=== PATIENT | female | born 1990 | race Caucasian/White ===

== ENCOUNTER → 2017-11-20 08:32 | Outpatient (CLI) | payer SELFPAY ==
--- NOTE | 2017-11-20 08:35 | US_ITS ---
STUDY: ULTRASOUND BREAST - LEFT REASON FOR EXAM: Female, 27 years old. Left breast lumps. History previous fibroadenoma left breast 8:00 position +4. TECHNIQUE: Axial and longitudinal images of the LEFT breast were performed with a high resolution ultrasound transducer. COMPARISON: None available. FINDINGS: LEFT Breast: There is a lesion in the left breast lower inner quadrant). The lesion measures approximately 1.6 x 1.8 x 0.9 cm in size. Clock notation: 8 o'clock position. Distance from nipple: 4 cm. Posterior Enhancement: Mild Posterior Shadowing: Internal round hyperechoic areas seen with acoustic shadowing suggesting a calcification. Margins: Smooth Echogenicity: Heterogeneous predominant hypoechoic. Wider than tall with minimal internal color Doppler signal noted. 2 additional lesions are seen in the 1:00 position 2 cm from the nipple, one of which is 1.0 x 1.1 x 0.9 cm and the other is approximately 0.9 x 1.1 x 0.7 cm. Both lesions appear round with smooth margins. However, one of the lesions is heterogeneous in echogenicity, predominantly hypoechoic with separate cystic area noted superficially with minimal internal color Doppler signal. The other rounded lesion appears fairly homogeneously hypoechoic without internal color Doppler signal. US/Breast Limited Unilateral IMPRESSION: Left breast multiple lesions with probably benign ultrasound findings such as fibroadenomas as described above. Recommend left breast targeted ultrasound repeated in 6 months for short term interval follow-up of probably benign findings. ASSESSMENT CATEGORY: BIRADS Category 3: Probably Benign - Short-Interval Follow-up Suggested. A letter regarding these results will be sent to the patient by the facility within 30 days. Electronically Signed: Geraldo Young, at 11:20 EDT Tel , Service support ,
== END ==
PROVIDERS: Family Provider Internal Medicine; PCP Internal Medicine; Visit Provider Obstetrics & Gynecology
DX: N63.20 Unspecified lump in the left breast, unspecified quadrant (principal)
CPT/HCPCS: 76642

== ENCOUNTER → 2018-03-09 07:55 | Outpatient (CLI) | payer OTHER, SELFPAY ==
[2018-03-09 08:38] LABS: Hemoglobin A1c 5.3 % (4.2-6.3)
[2018-03-09 09:02] LABS: Cholesterol 152 mg/dL (200); High Density Lipoprotein 57 mg/dL; Thyroid Stim Hormone (TSH) 2.11 uIU/mL (0.358-3.74); Triglycerides 38 mg/dL; Very Low Density Lipoprotein 8 mg/dL (5-40)
== END ==
PROVIDERS: Family Provider Internal Medicine; PCP Internal Medicine; Visit Provider Internal Medicine
DX: E03.9 Hypothyroidism, unspecified (principal); R73.9 Hyperglycemia, unspecified; Z13.220 Encounter for screening for lipoid disorders
CPT/HCPCS: 36415; 80061; 83036; 84439; 84443; 84481

== ENCOUNTER → 2019-03-27 | Outpatient (CLI) | payer OTHER, SELFPAY ==
[2019-03-27 13:06] LABS: hCG Titer Quant., Serum 2 mIU/mL (1-3)
== END | disposition home or self-care (01) ==
LOC: LAB 12:05
PROVIDERS: Family Provider Internal Medicine; PCP Internal Medicine; Referring Provider Obstetrics & Gynecology Reproductive Endocrinology; Visit Provider Obstetrics & Gynecology Reproductive Endocrinology
DX: Z32.01 Encounter for pregnancy test, result positive (principal)
CPT/HCPCS: 36415; 84702

== ENCOUNTER → 2019-08-29 16:36 | Outpatient (CLI) | payer OTHER, SELFPAY | PROVIDERS: Family Provider Internal Medicine; PCP Internal Medicine; Referring Provider Nurse Practitioner Women's Health; Visit Provider Nurse Practitioner Women's Health | DX: N92.6 Irregular menstruation, unspecified (principal) | CPT/HCPCS: 36415; 84702 ==

== ENCOUNTER → 2019-09-04 13:38 | Outpatient (CLI) | payer OTHER, SELFPAY ==
--- NOTE | 2019-09-04 13:38 | US_ITS ---
STUDY: FIRST TRIMESTER OBSTETRICAL ULTRASOUND REASON FOR EXAM: Female, 29 years old DATING LMP: July 19, 2019. TECHNIQUE: Transvaginal TECHNICAL QUALITY: Adequate. PRIOR ULTRASOUND: None. FINDINGS: There is visualization of a single gestational sac in a normal intrauterine position. The mean sac diameter (MSD) measures 3.23 cm, indicating an estimated gestational age (EGA) of 8 weeks, 3 days. The gestational sac shape is within normal limits. There is a visualized yolk sac. The yolk sac measures 4.5 mm. The placenta is non-visualized. There is visualization of a live embryo. The crown-rump length (CRL) measures 1.49 cm, indicating an estimated gestational age (EGA) of 7 weeks, 5 days. There is demonstrated cardiac activity with a heart rate of 152 bpm. The estimated gestation age (EGA) by LMP is 6 weeks, 5 days. The estimated date of delivery (PRASHANTH) by LMP is April 24, 2020. The estimated gestation age (EGA) by US is 8 weeks, 0 days. The estimated date of delivery (PRASHANTH) by US is April 15, 2020. The uterus measures 9 cm x 7.7 cm x 5.7 cm. There is no demonstrated uterine fibroid. The cervix is closed. The right ovary measures 3.4 cm x 2.7 cm x 1.9 cm. A dominant follicle is seen within it measuring 1.6 cm x 1.8 cm x 1.5 cm. There is no visualized right adnexal mass or complex lesion. The left ovary measures 3.2 cm x 2 cm x 1.6 cm.. There is no left ovarian cyst. There is no visualized left adnexal mass or complex lesion. There is no fluid in the cul de sac. US/Init OB < 14Wks US IMPRESSION: Single live intrauterine gestation with a mean gestational age of 6 weeks and 5 days. Dominant follicle seen in the right ovary measuring 1.6 cm x 1.8 cm x 1.5 cm. Electronically Signed: Aldo Markham at 13:07 EST , Service support ,
== END ==
PROVIDERS: Family Provider Internal Medicine; PCP Internal Medicine; Referring Provider Nurse Practitioner Women's Health; Visit Provider Nurse Practitioner Women's Health
DX: O09.90 Supervision of high risk pregnancy, unspecified, unspecified trimester (principal); Z3A.00 Weeks of gestation of pregnancy not specified
CPT/HCPCS: 76801

== ENCOUNTER → 2019-09-05 17:07 | Outpatient (CLI) | payer OTHER, SELFPAY ==
[2019-09-05 16:42] VITALS: BMI 24.9
[2019-09-05 17:42] LABS: Amphetamine Urine VISTA NEGATIVE (<1000 ng/mL); Barbiturate Urine VISTA NEGATIVE (< 200 ng/mL); Benzodiazepine Urine VISTA NEGATIVE (< 200 ng/mL); Cocaine Urine VISTA NEGATIVE (< 300 ng/mL); Ecstacy Urine VISTA NEGATIVE (< 500 ng/mL); Methadone Urine VISTA NEGATIVE (< 300 ng/mL); PCP Urine VISTA NEGATIVE (< 25 ng/mL); THC Urine VISTA NEGATIVE (< 50 ng/mL); Vista UDS pH Range 7
[2019-09-05 20:22] LABS: Chlamydia Trachomatis by PCR Negative (Negative); Neisserai gonorrhoeae by PCR Negative (Negative); Probe Check PASS; Sample Adequacy Control PASS; Specimen Processing Control PASS
[2019-09-09 18:45] LABS: HPV APTIMA, High Risk Negative (Negative)
== END ==
PROVIDERS: Family Provider Internal Medicine; PCP Internal Medicine; Visit Provider Obstetrics & Gynecology
DX: Z34.90 Encounter for supervision of normal pregnancy, unspecified, unspecified trimester (principal)
CPT/HCPCS: 80307; 87077; 87086; 87088; 87186; 87491; 87591; 87624; 88175; G0145

== ENCOUNTER → 2019-09-19 13:46 | Outpatient (CLI) | payer OTHER, SELFPAY ==
[2019-09-05 16:42] VITALS: BMI 24.9
[2019-09-19 14:32] LABS: Absolute Lymphocyte Count 1.74 X10^3/uL (0.83-4.51); Basophil# 0.03 X10^3/uL; Basophil% 0.5 % (0-1); Eosinophil# 0.06 X10^3/uL; Eosinophils% 0.9 % (0-5); Hemoglobin 12.1 g/dL (12.0-15.0); Lymphocyte # 1.74 X10^3/ul (4.0); Lymphocyte % 27.5 % (19-41); Mean Corp Hgb Conc 34.6 g/dL (32-36); Mean Corpuscular Hgb 33.7 pg (27.0-32.0); Mean Corpuscular Volume 97.5 fL (81-99); Mean Platelet Vol. 8.7 fl (6.2-12.0); Monocyte% 7.9 % (0-10); NRBC Flagged by Analyzer 0 % (0-5); Neutrophil # 3.99 X10^3/uL (2.7-7.7); Platelet Count 217 K/mm3 (150-450); RBC Distribution Width CV 12.2 % (11.6-14.6); Red Blood Count 3.59 M/mm3 (4.2-5.4); White Blood Count 6.3 K/mm3 (4.4-11.0)
[2019-09-19 15:09] LABS: NATERA MAILED SPECIMEN
[2019-09-19 15:44] LABS: HIV - WCH Non-Reactive (Nonreactive); Hepatitis B Surface Antigen Non-Reactive (Nonreactive); Hepatitis C Antibody Non-Reactive (Nonreactive); Rubella IgG 118.1 IU/mL
[2019-09-25 03:15] LABS: Rapid Plasmin Reagin (RPR) NONREACTIVE (NONREACTIVE)
== END ==
PROVIDERS: PCP Internal Medicine; Referring Provider Obstetrics & Gynecology; Visit Provider Obstetrics & Gynecology
DX: Z34.81 Encounter for supervision of other normal pregnancy, first trimester (principal)
CPT/HCPCS: 36415; 85025; 86592; 86703; 86762; 86803; 86850; 86900; 86901; 87340

== ENCOUNTER → 2019-09-30 | Outpatient (CLI) | payer OTHER, SELFPAY ==
[2019-09-05 16:42] VITALS: BMI 24.9
[2019-09-30 13:40] LABS: T4 Free Direct 0.89 ng/dL (0.76-1.46); Thyroid Stim Hormone (TSH) 1.29 uIU/mL (0.358-3.74)
== END | disposition home or self-care (01) ==
LOC: LAB 12:00
PROVIDERS: PCP Internal Medicine; Referring Provider Obstetrics & Gynecology; Visit Provider Obstetrics & Gynecology
DX: E03.9 Hypothyroidism, unspecified (principal)
CPT/HCPCS: 36415; 84439; 84443

== ENCOUNTER → 2020-01-07 | Outpatient (CLI) | payer OTHER, SELFPAY ==
[2019-12-19 10:49] VITALS: BMI 24.9
--- NOTE | 2020-01-07 14:36 | VDLE_ITS ---
Reason For Study: Swelling RIGHT LEFT GSV is normal. GSV is normal. CFV is compressible, spontaneous, phasic, CFV is compressible, spontaneous, phasic, competent and demonstrates normal competent, and demonstrates normal augmentation. augmentation. FV is compressible, spontaneous, phasic, FV is compressible, spontaneous, phasic, competent and demonstrates normal competent and demonstrates normal augmentation. augmentation. POP V is compressible, spontaneous, phasic, POP V is compressible, spontaneous, phasic, competent and demonstrates normal competent and demonstrates normal augmentation. augmentation. T/P Trunk is compressible. T/P Trunk is compressible. PTV is compressible. PTV is compressible. RT PerV is compressible. LT PerV is compressible. Procedure Exam performed in department. A preliminary report was called and/or faxed to [facility]. Interpretation Summary Deep veins of the lower extremities are bilaterally patent and compressible segmentally. There is no evidence of deep vein thrombosis on either side. Valvular competence appears intact within the proximal deep venous systems bilaterally. The great saphenous veins appear bilaterally patent and compressible segmentally. Ordering Physician: Tere Moran Referring Physician: Tere Moran M.D. Performed By: Louisa Howell RVT
== END | disposition home or self-care (01) ==
LOC: CVS 14:34
PROVIDERS: PCP Internal Medicine; Visit Provider Internal Medicine
DX: M79.89 Other specified soft tissue disorders (principal)
CPT/HCPCS: 93970

== ENCOUNTER → 2020-01-23 | Outpatient (CLI) | payer OTHER, SELFPAY ==
[2020-01-23 10:29] VITALS: BMI 24.9
[2020-01-23 12:29] LABS: Absolute Neutrophil Count 6.1 X10^3/uL (2.0-7.7); Basophil# 0.02 X10^3/uL; Basophil% 0.2 % (0-1); Eosinophil# 0.04 X10^3/uL; Eosinophils% 0.5 % (0-5); Hematocrit 32.2 % (37-47); Hemoglobin 10.6 g/dL (12.0-15.0); Lymphocyte % 17.2 % (19-41); Mean Corp Hgb Conc 32.9 g/dL (32-36); Mean Corpuscular Hgb 34.4 pg (27.0-32.0); Mean Corpuscular Volume 104.5 fL (81-99); Mean Platelet Vol. 8.9 fl (6.2-12.0); Monocyte# 0.52 X10^3/uL; Monocyte% 6.4 % (0-10); NRBC Flagged by Analyzer 0 % (0-5); Neutrophil % 75.1 % (47-70); Platelet Count 252 K/mm3 (150-450); RBC Distribution Width CV 12.7 % (11.6-14.6); RBC Distribution Width SD 47.8 fl (35.1-43.9); Red Blood Count 3.08 M/mm3 (4.2-5.4); White Blood Count 8.1 K/mm3 (4.4-11.0)
[2020-01-23 13:06] LABS: Glucose Challenge Gest 1H 50g 105 mg/dL (70-140)
== END | disposition home or self-care (01) ==
PROVIDERS: PCP Internal Medicine; Referring Provider Nurse Practitioner Women's Health; Visit Provider Nurse Practitioner Women's Health
DX: Z34.90 Encounter for supervision of normal pregnancy, unspecified, unspecified trimester (principal)
CPT/HCPCS: 36415; 82950; 85025

== ENCOUNTER → 2020-02-17 | Outpatient (CLI) | payer OTHER, SELFPAY ==
[2020-02-17 14:03] VITALS: BMI 24.9
[2020-02-17 15:18] LABS: Glucose 77 mg/dL (74-106)
[2020-02-17 15:46] LABS: Hemoglobin A1c 5.3 % (3.8-5.6)
== END | disposition home or self-care (01) ==
LOC: LAB 14:20
PROVIDERS: PCP Internal Medicine; Referring Provider Nurse Practitioner Women's Health; Visit Provider Nurse Practitioner Women's Health
DX: R81 Glycosuria (principal)
CPT/HCPCS: 36415; 82947; 83036

== ENCOUNTER → 2020-03-15 | Outpatient (CLI) | payer OTHER, SELFPAY ==
[2020-03-11 12:24] VITALS: BMI 24.9
[2020-03-15 10:40] LABS: Absolute Lymphocyte Count 1.51 X10^3/uL (0.83-4.51); Absolute Neutrophil Count 4.4 X10^3/uL (2.0-7.7); Basophil# 0.02 X10^3/uL; Basophil% 0.3 % (0-1); Eosinophil# 0.03 X10^3/uL; Eosinophils% 0.4 % (0-5); Hematocrit 32.9 % (37-47); Hemoglobin 11.1 g/dL (12.0-15.0); Lymphocyte # 1.51 X10^3/ul (4.0); Lymphocyte % 22.4 % (19-41); Mean Corp Hgb Conc 33.7 g/dL (32-36); Mean Corpuscular Hgb 34.9 pg (27.0-32.0); Mean Corpuscular Volume 103.5 fL (81-99); Mean Platelet Vol. 8.7 fl (6.2-12.0); Monocyte# 0.75 X10^3/uL; Monocyte% 11.1 % (0-10); NRBC Flagged by Analyzer 0 % (0-5); Neutrophil # 4.38 X10^3/uL (2.7-7.7); Neutrophil % 65.2 % (47-70); Platelet Count 221 K/mm3 (150-450); RBC Distribution Width CV 14.2 % (11.6-14.6); RBC Distribution Width SD 54.1 fl (35.1-43.9); Red Blood Count 3.18 M/mm3 (4.2-5.4); White Blood Count 6.7 K/mm3 (4.4-11.0)
[2020-03-15 11:43] LABS: T4 Free Direct 0.95 ng/dL (0.76-1.46); Thyroid Stim Hormone (TSH) 2.53 uIU/mL (0.358-3.74)
== END | disposition home or self-care (01) ==
LOC: LAB 10:27
PROVIDERS: Nurse Practitioner Women's Health; PCP Internal Medicine; Referring Provider Obstetrics & Gynecology; Visit Provider Obstetrics & Gynecology
DX: O34.00 Maternal care for unspecified congenital malformation of uterus, unspecified trimester (principal); O99.019 Anemia complicating pregnancy, unspecified trimester; O98.819 Other maternal infectious and parasitic diseases complicating pregnancy, unspecified trimester; B95.1 Streptococcus, group B, as the cause of diseases classified elsewhere; O22.00 Varicose veins of lower extremity in pregnancy, unspecified trimester; O99.280 Endocrine, nutritional and metabolic diseases complicating pregnancy, unspecified trimester; E07.9 Disorder of thyroid, unspecified; Z3A.00 Weeks of gestation of pregnancy not specified
CPT/HCPCS: 36415; 84439; 84443; 85025

== ENCOUNTER → 2020-03-19 | Outpatient (CLI) | payer OTHER, SELFPAY ==
[2020-03-19 10:33] VITALS: BMI 26.0
--- NOTE | 2020-03-19 10:46 | US_ITS ---
STUDY: OBSTETRICAL ULTRASOUND - BIOPHYSICAL PROFILE REASON FOR EXAM: Female, 30 years old WELL BEING LMP: Unknown. PRIOR ULTRASOUND: 09/04/2019 TECHNIQUE: Transabdominal TECHNICAL QUALITY: Adequate. FINDINGS: There is a single intrauterine fetus. The fetus is in a cephalic presentation. There is demonstrated cardiac activity with a heart rate of 142 bpm. There is a normal amniotic fluid volume. The largest amniotic fluid pocket measures 4.29 cm. The amniotic fluid index (GARDENIA) is 10.4 cm. The placenta is anterior and fundal, not low-lying There are Grade 3 placental changes. Age by LMP: 36 weeks, 1 days. PRASHANTH by LMP: 04/15/2020. BIOPHYSICAL PROFILE: Breathing Movements (FBM): 2 Gross Body Movements (GBM): 2 Tone (FT): 2 Amniotic Fluid Volume (AFV): 2 TOTAL SCORE: US/Biophysical Profile IMPRESSION: Normal biophysical profile of 04/03. Electronically Signed: Willam Javed MD at 13:13 EDT , Service support ,
== END | disposition home or self-care (01) ==
LOC: US 10:46
PROVIDERS: PCP Internal Medicine; Referring Provider Obstetrics & Gynecology; Visit Provider Obstetrics & Gynecology
DX: O34.00 Maternal care for unspecified congenital malformation of uterus, unspecified trimester (principal); Q51.4 Unicornate uterus; Z3A.00 Weeks of gestation of pregnancy not specified
CPT/HCPCS: 76818

== ENCOUNTER 2020-03-26 19:20 | Inpatient (IN) | payer OTHER, SELFPAY ==
[2020-03-11 12:24] VITALS: BMI 24.9
[2020-03-26] VITALS (14 sets, daily range): BP systolic 124–144; BP diastolic 58–70; PULSE 71–122; TEMP 37–37.7; O2SAT 97–100; BMI 26.0; BMI 25.9
[2020-03-26] MEDS: Oxytocin 10 UNITS/ML Vial IM (20:18)
--- NOTE | 2020-03-26 20:27 | HP.PCM_ITS ---
- Problem List (1) Active labor at term Status: Acute (2) Anxiety Status: Acute Comment: on 50 mg zoloft, counseling encouraged (3) Decreased movements, third trimester, fetus 1 Status: Acute Comment: plan weekly bpp and kick counts twice daily, deliver by 39 weeks or sooner if abnormal testing (4) H/O delivery, currently Status: Acute Comment: declining injections due to cost, generic isaac approved 10/30/19-10/29/20 (5) History of blood clots Status: Acute Comment: superficial, s/p vascular and mfm consult. Started low dose aspirin (6) Positive GBS test Status: Acute Comment: Positive urine, treated, plan Ancef in labor (7) Status: Acute Qualifiers: Comment: had carrier testing with previous . NIPT low risk. ntd screening declined. anatomy US normal. (8) Supervision of high risk , antepartum Status: Acute Comment: PRR PRASHANTH 04/17/20 surprise PC: Tristin Spouse: Al (9) Thyroid disorder Status: Acute Comment: normal labs/recheck with PCP. 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 Qualifiers: Comment: growth scan 36 weeks showed adequate growth (11) Varicose vein of leg Status: Acute Qualifiers: Comment: left side in , baby ASA, supportive care History and Physical Date of Admission: 03/26/20 Intake Vital Signs 03/26/20 Height 5 ft 3 in 03/26/20 Weight: 148 lb 03/26/20 BMI 26.2 03/26/20 BP 128/80 H Intake Visit Reasons: 37 WK OB/NST Bundle Wrapper Required: No Accompanied by: self Allergies amoxicillin Allergy (Verified 03/26/20 10:10) Unknown nut - unspecified Allergy (Verified 03/26/20 10:10) Swelling Medications Sertraline HCl [Zoloft] 50 mg PO 12/03/16 [History Confirmed 03/26/20] levothyroxine 25 mcg tablet 25 mcg PO DAILY 09/05/19 [History Confirmed 03/26/20] aspirin 81 mg chewable tablet 81 mg PO DAILY 10/03/19 [History Confirmed 03/26/20] hydroxyprogest(PF)(preg presv) 250 mg/mL (1 mL) IM oil 250 mg IM QWEEK #4 ml 03/11/20 [Rx Confirmed 03/26/20] vitamin no.49-iron-FA 6.75 mg iron-200 mcg tablet 1 tab PO DAILY #30 tab 01/07/20 [Rx Confirmed 03/26/20] ferrous sulfate 142 mg (45 mg iron) tablet,extended release 142 mg PO ONCE #30 tab 02/06/20 [Rx Confirmed 03/26/20] Last Menstral Period: 07/19/19 Zika: Zika virus screening: Negative : No PFSH PFSH Medical History Varicose vein of leg (Acute) H/O delivery, currently (Acute) Unicornate uterus affecting (Acute) History of blood clots (Acute) Anxiety (Acute) History of infertility (Resolved) Surgical History H/O breast biopsy (Acute) H/O laparoscopy (Acute) History of wisdom tooth extraction, class II edentulism (Acute) Family History Father Hypertension Grandmother Diabetes Grandfather Heart disease Social History (Updated 03/26/20 @ 10:[address] 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 Date Name GA/Weeks Outcome Route Bth Weight Gen Labor Lgth Anesthesia Del Locatn Provider FOB Unknown 2016 [place] 36 live - full term 4lbs 10oz Female 1 hour none [facility] Al Delivery Date: On 09/05/19 @ 16:29 Kati Sanon elevated AFP; sacral dimple- negative US HPI 37 WK OB/NST: Details: LÓPEZ WILLIAMSON is a 30 year old @37 weeks 1 day presents in active labor completely dilated. OB Visit PRASHANTH Calculator Estimated Delivery Date Method Current WG Current Estimate 04/15/20 Ultrasound #1 37w 1d Expected Delivery Route/Plan Labor Preferences- labor support person: Al pain management options preferred: limited intervention cut cord/dad catch: yes : yes PP control planned: [] discussed possible routes of delivery and associated risks: [] special requests: [] Specific Issue/Plans flu vaccine: given tdap vaccine: given rhogam: na LARC form signed: yes movement and labor precautions reviewed. Problem list reviewed and updated with the most current plan of care details and appropriate orders placed. Relevant counseling for the gestational age provided. Continue routine care and follow up unless otherwise noted in visit notes/problem list details Initial Weight: 112 lb Date EGA Weight BP Urine Prot Glucose FHR FuHt Pres Dilation Effaced St Visit Note 09/05/19 8w 1d 112 lb 6 oz (+6 oz) 110/60 150 10/03/19 12w 1d 110 lb (-2 lb) 100/72 Negative Negative 150 no vb cramping, need to get approval for isaac 10/31/19 16w 1d 117 lb 4 oz (+5 lb 4 oz) 108/71 Negative Negative 145 SM- no vb lof good fm no regular ctx, waiting on isaac 12/19/19 23w 1d 124 lb (+12 lb) 108/70 Negative Negative 140 24 SM- no vb lof good fm no regular ctx declining progesterone at this time 01/23/20 28w 1d 131 lb (+19 lb) 108/70 Negative Negative 161 28 MH-NO Vb, LOF. Good FM. 28 wk labs and tdap 02/06/20 30w 1d 136 lb (+24 lb) 92/60 Negative Negative 150 30 SM- prescribed iron, check cbc in 4 weeks. no vb lof good fm no regular ctx. left varicose veins worsening but nothing acute- continue supportive care 02/17/20 31w 5d 139 lb 8 oz (+27 lb 8 oz) 130/78 Negative 100 g/dL 157 32 MH-Had episode of feeling very dizzy and nauseous this AM. Called squad and BP was 140/80 and glucose elevated glucose. Declined squad transport. Feels fine now. Good FM. Consult KG:random serum glucose and HgbA1C now. Small frequent meals, force fluids. 03/05/20 34w 1d 145 lb (+33 lb) 100/60 Negative Negative SM- having decreased fm, no vb lof no regular ctx 03/11/20 35w 0d 144 lb 4 oz (+32 lb 4 oz) 120/70 Negative Negative 150 36 Cephalic 2 50 -2 MH:CTX Q7-10 min on NST. Good FM. Reactive NST. She states feels mild cramping only. NO VB, LOF. Consult KG, labor precautions reviewed. Hx of 36 wk del. 03/19/20 36w 1d 147 lb (+35 lb) 118/76 Negative Negative 140 Cephalic 2 60 -2 SM- no vb lof still inter mittent dec fm, plan weekly bpps until delivery and deliver at 39 weeks 03/26/20 37w 1d 148 lb (+36 lb) 128/80 Negative Negative 140 37 Cephalic 3 70 0 SM- discussed FM consisten t with meeting kick count requirements, continue weekly BPP and consider IOL by 39 weeks. membranes swept. ACOG First Trimester First Trimester: Desire for , Alcohol, Tobacco Cessation, Illicit/Recreational Drug/Substance Use, Intimate Partner Violence, Barriers to care, Unstable Housing, Communication Barriers, Environmental/Work Hazards, Anticipated Course of Care, Toxoplasmosis Precations, Use of Any medications, Sexual activity, Exercise, Dental Care, Sauna/Hot tub use, Seat Belt use, Childbirth classes/Hospital facilities, , Travel, Indications for US and Screening for Aneuploidy Second Trimester Second Trimester: Signs and Symptoms of Labor, Selecting a care provider, Reproductive Life Planning, Care Planning, Tobacco Cessation, Depression/Anxiety and Intimate Partner Violence Third Trimester Third Trimester: Pain Management Plans, Labor support person(s), Immediate Larc, Movement Monitoring and Feeding Yes ; discussed Trial of Labor after Counseling or discussed Circumcision preference Diagnostics Diagnostics Diagnostics Glucose 1 Hr 50 gm 105 mg/dL (70-140) 01/23/20 Hgb 11.1 g/dL (12.0-15.0) L 03/15/20 Hct 32.9 % (37-47) L 03/15/20 Details: HIV: Urine Culture: Sequential Screen: NIPT Screen: ROS Const Reports system reviewed and no additional complaints, except as docu Card Reports system reviewed and no additional complaints, except as docu Resp Reports system reviewed and no additional complaints, except as docu GI Reports system reviewed and no additional complaints, except as docu, Reports nausea Reports system reviewed and no additional complaints, except as docu Musc Reports system reviewed and no additional complaints, except as docu Exam Const General: cooperative, healthy appearing, comfortable, anxious HENMT Head: normal to inspection Nose: external nose normal Face and sinus: normal facial exam Neck Neck: normal visual inspection, full ROM, no lymphadenopathy Thyroid: thyroid normal Chest Chest palpation & inspection: normal inspection of the chest Resp Effort & Inspection: normal respiratory effort GI Inspection: normal to inspection Palpation: soft, other (gravid uterus) Other: vertex and appropriate size for gestational age Other: Cervical Exam: Extrem General: pedal edema Assessment and plan 30-year-old G3, P1 at 37 weeks 1 day presents in active labor Admit in active labor precipitous delivery gbs pos o pos Results POC Urinalysis 2 Dip (Clinic) Office Urine Glucose Negative Last Edit by Becki Sylvester on 03/26/20 10:14 Office Urine Protein Negative Last Edit by Becki Sylvester on 03/26/20 10:14 Assessment & Plan Orders Orders: POC Urinalysis 2 Dip (Clinic) Today Culture, Group B Streptococcus Today O09.90 Biophysical Profile Today O09.90, O36.8131 Coding Level of Care Code OB Routine
--- NOTE | 2020-03-26 20:29 | OP.PCM_ITS ---
Problem List (1) Active labor at term Status: Acute (2) Anxiety Status: Acute Comment: on 50 mg zoloft, counseling encouraged (3) Decreased movements, third trimester, fetus 1 Status: Acute Comment: plan weekly bpp and kick counts twice daily, deliver by 39 weeks or sooner if abnormal testing (4) H/O delivery, currently Status: Acute Comment: declining injections due to cost, generic isaac approved 10/30/19-10/29/20 (5) History of blood clots Status: Acute Comment: superficial, s/p vascular and mfm consult. Started low dose aspirin (6) Positive GBS test Status: Acute Comment: Positive urine, treated, plan Ancef in labor (7) Status: Acute Qualifiers: Comment: had carrier testing with previous . NIPT low risk. ntd screening declined. anatomy US normal. (8) Supervision of high risk , antepartum Status: Acute Comment: PRR PRASHANTH 04/17/20 surprise PC: Tristin Spouse: Al (9) Thyroid disorder Status: Acute Comment: normal labs/recheck with PCP. 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 Qualifiers: Comment: growth scan 36 weeks showed adequate growth (11) Varicose vein of leg Status: Acute Qualifiers: Comment: left side in , baby ASA, supportive care Vaginal Delivery Maternal Presentation: Active Labor ial @ 37w1 ial precipitous delivery Method of Induction: Pitocin Amniotic Membrane Rupture Type: Spontaneous at home Amniotic Fluid Description: Clear Final PRASHANTH: 04/15/20 Gestational age: 37 Weeks and 1 Days Date of Procedure: 03/26/20 Pre-Operative Diagnosis: ial precipitous Post-Operative Diagnosis: same Surgery/ Procedure Performed: Spontaneous Vaginal Delivery Type of Anesthesia: None Description of Procedure: Patient began pushing and delivered the head in the NISSA presentation. The head was delivered atraumatically . The anterior and posterior shoulders delivered without complication followed by the rest of the infant and the was placed on the maternal abdomen. Delayed cord clamping was employed for approximately 60 seconds. Cord was clamped and cut and gentle traction was applied to the cord and the placenta delivered spontaneously immediately following it was noted to be intact with three-vessel cord. The perineum and vagina were inspected and noted to have no laceration. EBL was 300 cc IM pitocin given. Patient and infant tolerated delivery well. Presentation: NISSA Placental Delivery Description: Spontaneous Placenta Disposition: [facility] Cord Vessel Description: 3 Vessels Cord Entanglement: None Estimated Blood Loss: 300 Infant A gender: Male Episiotomy Description: None Laceration: None Medications given after delivery: - - im pitocin Complications: None Multi Select Codes - Urinary/Genital Urinary/Genital CPT Codes: 63991 Vaginal Delivery [facility]
[2020-03-26 23:35] LABS: Absolute Neutrophil Count 19.7 X10^3/uL (2.0-7.7); Basophil# 0.04 X10^3/uL; Basophil% 0.2 % (0-1); Eosinophil# 0.03 X10^3/uL; Eosinophils% 0.1 % (0-5); Hematocrit 37.5 % (37-47); Hemoglobin 12.9 g/dL (12.0-15.0); Lymphocyte % 2.7 % (19-41); Mean Corp Hgb Conc 34.4 g/dL (32-36); Mean Corpuscular Hgb 34.7 pg (27.0-32.0); Mean Corpuscular Volume 100.8 fL (81-99); Mean Platelet Vol. 9.2 fl (6.2-12.0); Monocyte# 1.46 X10^3/uL; Monocyte% 6.6 % (0-10); NRBC Flagged by Analyzer 0 % (0-5); Neutrophil # 19.72 X10^3/uL (2.7-7.7); Neutrophil % 89.6 % (47-70); POSITIVE DIFFERENTIAL YES; POSITIVE MORPHOLOGY YES; Platelet Count 219 K/mm3 (150-450); RBC Distribution Width CV 14.9 % (11.6-14.6); RBC Distribution Width SD 55.2 fl (35.1-43.9); Red Blood Count 3.72 M/mm3 (4.2-5.4)
[2020-03-26 23:36] LABS: Differential Indicated SCAN CRITERIA MET
[2020-03-27] VITALS (12 sets, daily range): BP systolic 102–121; BP diastolic 60–78; PULSE 82–127; RESP 14–125; TEMP 36.6–37.9; O2SAT 96–98
[2020-03-27 00:22] LABS: Differential Comment SCANNED
--- NOTE | 2020-03-27 00:30 | NURSING ---
rn gave report to osmel VILLA. that rn to assume care of couplet at this time.
[2020-03-27] MEDS: Lactated Ringers 1,000 ML 999 ML IV (05:50)
[2020-03-27] MEDS: Levothyroxine 25 MCG TABLET PO (06:23)
[2020-03-27] MEDS: Cefazolin 2 GM in 0.9% Normal Saline 100 ML IV (06:52)
[2020-03-27] MEDS: Sertraline 50 MG Tablet PO (11:35)
[2020-03-27] MEDS: Prenatal Vits Tablet 1 TABLET PO (11:35)
[2020-03-28 02:55] VITALS: BP 120/69; PULSE 74; RESP 16; TEMP 36.7
[2020-03-28] MEDS: Levothyroxine 25 MCG TABLET PO (06:20)
--- NOTE | 2020-03-28 07:29 | DCINST_ITS ---
Discharge Diet: No Restrictions Discharge Activity: Return to Normal Activity, May not drive while taking narcotic pain medications., May Shower May resume sexual activity in: 4-6 weeks Call your doctor if your incision/area has: Continuous Slow Oozing, Sudden Increased Bleeding, Increased Pain/ Swelling, Increased Redness, Foul Smelling Discharge Additional Instructions: If you experience any of the following, contact your healthcare provider. * Bleeding that soaks a pad every hour for 2 hours * Fever 100.4 or higher * Unrelieved incision or abdominal pain * Swelling, redness, discharge or bleeding from your incision or episiotomy site * Your incision begins to separate * Problems urinating (including inability to urinate or burning while urinating). * Visual changes * Severe headache * Flu-like symptoms * Pain or redness in one of both of your breasts * Pain, warmth, tenderness or swelling in your legs, especially the calf area * Frequent nausea and vomiting * Symptoms of depression or anxiety If you experience any of the following, call 911 or go to the nearest Emergency Room. * Chest pain * Problems breathing * Seizure activity * Partial or complete paralysis of a body part, slurred speech, weakness or drooping of the face, or a sudden inability to walk or hold your balance Allergies/Adverse Reactions: Allergies amoxicillin Allergy (Verified 03/26/20 21:08) Unknown nut - unspecified Allergy (Verified 03/26/20 21:08) Swelling Medications to take at Discharge Sertraline HCl [Zoloft] 50 mg PO DAILY 12/03/16 levothyroxine 25 mcg tablet 25 mcg PO DAILY 09/05/19 aspirin 81 mg chewable tablet 81 mg PO DAILY 10/03/19 vitamin no.49-iron-FA 6.75 mg iron-200 mcg tablet 1 tab PO DAILY #30 tab 01/07/20 Please Follow Up With: Tami Miranda MD - [phone] When: Call to make an appointment with your doctor in 6 weeks. If you had elevated Blood pressure or 4th degree laceration you will need to be seen in 2 weeks. Primary Care Physician: Tere Moran DO [Primary Care Provider] - Test Results: Test results from this visit will be discussed in further detail at your follow- up appointment, if applicable.
--- NOTE | 2020-03-28 07:29 | PN.OBGYN_ITS ---
Patient Problems: Active and Suspected Problems (Last Reviewed 03/26/20 @ 10:11 by Becki Sylvester) Active labor at term (Acute) Subjective: doing well no complaints pain controlled no CP SOB N V ambulating well tolerating po lochia moderate, going well - Physical Exam Vitals/I&O's: Vital Signs Temp Pulse Resp BP Pulse Ox 98.1 F 74 16 120/69 97 03/28/20 02:55 03/28/20 02:55 03/28/20 02:55 03/28/20 02:55 03/27/20 07:06 Oxygen Delivery Method Room Air Weight: 146 lb 9.6 oz Body Mass Index (BMI) 25.9 Intake and Output for Last 24 Hours 03/26/20 03/27/20 03/28/20 23:59 23:59 23:59 Intake Total 1610 / 1610 Output Total 500 / 500 400 / 400 Balance -500 / -500 1210 / 1210 Current Medications Acetaminophen (Tylenol) 1,000 mg PO Q8H PRN PRN PRN Reason: Pain Score 1-3/10 Acetaminophen (Tylenol) 325 - 650 mg PO Q4H PRN PRN PRN Reason: Pain Score 1-3/10 Al Hydroxide/Mg Hydroxide (Mylanta Ii) 15 - 30 ml PO Q4H PRN PRN PRN Reason: INDIGESTION Bisacodyl (Dulcolax) 10 mg RECTAL UD PRN PRN Reason: If no BM Citric Acid/Sodium Citrate (Bicitra) 30 ml PO X1 PRN PRN Reason: Section Dibucaine (Dibucaine) 1 applic TOPICAL TID PRN PRN; Protocol PRN Reason: Discomfort Fentanyl Citrate (Sublimaze (100mcg Ampule)) 25 - 50 mcg IV Q2H PRN PRN PRN Reason: Pain Score 4-10/10 Hydrocortisone (Hytone) 1 applic TOPICAL TID PRN PRN; Protocol PRN Reason: Discomfort Lactated Ringer's () 500 mls @ 999 mls/hr IV .Q31M PRN PRN Reason: Epidural Lactated Ringer's () 500 mls @ 999 mls/hr IV .Q31M PRN PRN Reason: Corrective Measures Levothyroxine Sodium (Synthroid) 25 mcg PO DAILY@0600 BUCK Last Admin: 03/28/20 06:20 Dose: 25 mcg Documented by: Methylergonovine Maleate (Methergine) 0.2 mg IM X1 PRN PRN Reason: Excess bleeding/uterine atony Naproxen (Naprosyn) 500 mg PO Q8H PRN PRN PRN Reason: Pain Score 1-3/10 Ondansetron HCl (Zofran) 4 mg IV Q4H PRN PRN PRN Reason: Nausea Ondansetron HCl (Zofran) 4 mg IV Q4H PRN PRN PRN Reason: NAUSEA Oxycodone HCl (Oxyir) 5 - 10 mg PO Q4H PRN PRN PRN Reason: Pain Score 4-10/10 Multivit/Folic Acid/Iron (Prenatabs Fa) 1 tablet PO DAILY@1200 [facility] Last Admin: 03/27/20 11:35 Dose: 1 tablet Documented by: Prochlorperazine Edisylate (Compazine Iv) 10 mg IV Q6H PRN PRN PRN Reason: NAUSEA Senna/Docusate Sodium (Senokot-S, Jen-Colace) 1 - 2 tablet PO DAILY PRN PRN PRN Reason: Constipation Sertraline HCl (Zoloft) 50 mg PO DAILY [facility] Last Admin: 03/27/20 11:35 Dose: 50 mg Documented by: Simethicone (Mylicon) 80 mg PO PCHS PRN PRN Reason: Indigestion/Stomach pain Sodium Chloride () 5 - 15 ml IV UD PRN PRN Reason: SALINE FLUSH Sodium Chloride () 10 - 40 ml IV X1 PRN PRN Reason: SALINE FLUSH Medical Necessity - Tobacco Use Smoking Status: Never smoker Assessment/Plan All Active Problems (Last Reviewed 03/26/20 @ 10:11 by Becki Sylvester) Active labor at term (Acute) Decreased movements, third trimester, fetus 1 (Acute) Thyroid disorder (Acute) Positive GBS test (Acute) Supervision of high risk , antepartum (Acute) (Acute) Varicose vein of leg (Acute) H/O delivery, currently (Acute) Unicornate uterus affecting (Acute) History of blood clots (Acute) Anxiety (Acute) Decreased movements, third trimester, fetus 1 (Resolved) History of infertility (Resolved) Iron (Fe) deficiency anemia (Resolved) No significant past medical history (Resolved) s/p PPD # 2 1. routine post delivery care 2. breast feeding- support given 3. rh positive 4. rubella immune
[2020-03-28 09:27] VITALS: BP 108/70; PULSE 80; RESP 16; TEMP 36.9; O2SAT 98
== END 2020-03-28 11:20 | disposition home or self-care (01) | DRG 806 ==
LOC: WP 19:24 → WPOUT 19:24
PROVIDERS: Admitting Provider Obstetrics & Gynecology; PCP Internal Medicine; Visit Provider Obstetrics & Gynecology
DX: O62.3 Precipitate labor (principal); O98.82 Other maternal infectious and parasitic diseases complicating childbirth; Z37.0 Single live birth; B95.1 Streptococcus, group B, as the cause of diseases classified elsewhere; Z3A.37 37 weeks gestation of pregnancy
CPT/HCPCS: 59025; 59050; 85025; 86850; 86900; 86901; 99218; J7120; G0378

== ENCOUNTER → 2020-03-26 | Outpatient (CLI) | payer OTHER, SELFPAY ==
[2020-03-19 10:33] VITALS: BMI 26.0
[2020-03-26 10:10] VITALS: BMI 26.2
--- NOTE | 2020-03-26 10:36 | US_ITS ---
STUDY: OBSTETRICAL ULTRASOUND - BIOPHYSICAL PROFILE REASON FOR EXAM: Female, 30 years old WELL BEING LMP: Unknown. PRIOR ULTRASOUND: Comparison is made with prior study dated 03/19/2020. TECHNIQUE: Transabdominal TECHNICAL QUALITY: Adequate. FINDINGS: There is a single intrauterine fetus. The fetus is in a cephalic presentation. There is demonstrated cardiac activity with a heart rate of 136 bpm. There is a normal amniotic fluid volume. The largest amniotic fluid pocket measures 5.2 cm. The amniotic fluid index (GARDENIA) is 12.0 cm. The placenta is posterior in location and is not low lying. There are Grade 3 placental changes. BIOPHYSICAL PROFILE: Breathing Movements (FBM): 2 Gross Body Movements (GBM): 2 Tone (FT): 2 Amniotic Fluid Volume (AFV): 2 TOTAL SCORE: 8 / 8 US/Biophysical Profile IMPRESSION: Normal biophysical profile of 04/03. Electronically Signed: Aldo Markham, at 13:48 EDT , Service support ,
== END | disposition home or self-care (01) ==
LOC: US 10:32
PROVIDERS: PCP Internal Medicine; Referring Provider Obstetrics & Gynecology; Visit Provider Obstetrics & Gynecology
DX: O36.8131 Decreased fetal movements, third trimester, fetus 1 (principal); Z3A.00 Weeks of gestation of pregnancy not specified; O09.90 Supervision of high risk pregnancy, unspecified, unspecified trimester
CPT/HCPCS: 76818

== ENCOUNTER → 2021-07-26 11:05 | Outpatient (CLI) | payer OTHER, SELFPAY ==
--- NOTE | 2021-07-26 11:11 | MRI_ITS ---
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 FINDINGS: Bladder: Unremarkable Reproductive organs: Unremarkable Lymphadenopathy: Absent Ascites: Absent Bones: No suspicious lesions Vasculature: There is compression of the left common iliac vein by the right common iliac artery. 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 Electronically Signed: Elroy Jha MD at 17:49 EST Tel , Service support ,
== END ==
PROVIDERS: PCP Internal Medicine; Visit Provider Surgery
DX: I83.12 Varicose veins of left lower extremity with inflammation (principal)
CPT/HCPCS: 72198; A9575; C8920

== ENCOUNTER → 2023-09-04 | Outpatient (CLI) | payer OTHER, SELFPAY ==
--- NOTE | 2023-09-04 10:25 | US_ITS ---
EXAM: US FIRST TRIMESTER , TRANSABDOMINAL CLINICAL INDICATION: Amenorrhea/ dating TECHNIQUE: Real-time transabdominal obstetrical ultrasound of the maternal pelvis and a first trimester with image documentation. COMPARISON: No relevant prior studies available. FINDINGS: GESTATION: Single fetus. cardiac rate is 169 bpm. [place]-rump length is 2.0 cm. Normal 4 mm yolk sac. PLACENTA/AMNIOTIC FLUID: Cannot be adequately evaluated due to the early gestational age. UTERUS/CERVIX: Normal. Anteverted. No uterine mass. OVARIES: 18 mm left ovarian corpus luteum. No mass. The right ovary measures 3.0 x 2.0 x 2.1 cm. The left ovary measures 0.1 x 2.3 x 2.5 cm. FREE FLUID: No free fluid. US/Init OB < 14Wks US IMPRESSION: Single live 8 week 3 day intrauterine gestation by crown-rump measurement. Ultrasound PRASHANTH is April 14, 2024. Electronically Signed: Dimas Wilson MD at 12:54 EST ,
--- OUTSIDE RECORDS SUMMARY | 2023-09-04 11:30 | XMS RPT_ITS | CCD ---
Author Name Unknown Address [id number] [place] [address] Organization [facility] Care Team Providers Care Machine Feeder Floorperson Name Role Phone Tere An Unavailable China Hughes Unavailable Unavailable Unavailable Unavailable Tere An Attending Unavailable Tere An Consulting Unavailable Macario Beasley Unavailable Unavailable Arti Edmondson E Unavailable GravAkila jacksonin Unavailable Unavailable China Hughes Unavailable Unavailable Carlotta Garcia Unavailable Unavailable Macario Mcnamara Unavailable Unavailable Tere An DO Unavailable Gravius BHAVANI, Josie Unavailable Unavailable Radha CHEUNG, Carlotta Unavailable Unavailable Macario Mcnamara LPN Unavailable Unavailable China Hughes RN Unavailable Unavailable Unavailable Unavailable Tere An Unavailable Tere An DO Unavailable Unavailable Unavailable Unavailable Unavailable Don Mane Attending Unavaila Tere Oliver Primary Care Unavailable Don Mane Admitting Unavaila Don Fu Anna Attending Unavaila Gregorio Arnold Referring Unavailable Tere An Primary Care Unavailable Don Mane Anna Attending Unavaila ble Don Mane Anna Referring Unavaila Tere Oliver Primary Care Unavailable Don Mane Anna Attending Unavaila Gregoroi Arnold Referring Unavailable Tere An Primary Care Unavailable Tere An DO Primary Care Provider PHYSICIAN, NOT RECORDED Primary Care Physician ALLIE Merino Referring Unavailable TERE AN Primary Care Unavailab TERE Thurston Primary Care Unavailab TERE Thurston Primary Care Unavailab tita Barraganyor [facility] Unavailable Unavailable Allergies Allergy Classification Reported Allergen(s) Allergy Type Date of Onset Reaction(s) Facility Cephalosporins (antibiotic) (1 source) Cefixime; Translations: [Suprax *CEPHALOSPORINS *] Drug Allergy [facility]; [facility] Work Phone: Penicillins (antibiotic) (1 source) Penicillins; Translations: [Penicillins] Drug Allergy [facility]; [facility] Work Phone: (20 sources) Cefixime; Translations: [Suprax *CEPHALOSPORINS *] Drug Allergy 6 [facility] Work Phone: (20 sources) Penicillins; Translations: [Penicillins] allergy to substance [facility] Work Phone: (4 sources) Amoxicillin; Translations: [AMOXICILLIN] Drug Allergy 1 Other: See Comments [facility] (1 source) Cefixime; Translations: [CEFIXIME] Drug Allergy 6 [facility] Repository Medications Current Medications Medication Drug Class(es) Dates Sig (Normalized) Sig (Original) albuterol MDI (90 mcg/inh) CFC free inhalation aerosol (1 source) Start: 05-12-2023 take 1 dose by inhalation four times daily albuterol MDI (90 mcg/inh) CFC free inhalation aerosol Dose : 180 mcg = 2 puff(s), Inhalation, QID, # 18 gram(s), 0 Refill(s) Start Date: 05/12/23 Status: Ordered chlorhexidine gluconate 1.2 mg/ml mouthwash (5 sources) Start: 01-10-2022 End: 01-26-2022 take 15 mL by mouth in the morning Chlorhexidine Gluconate 0.12 % Mouth/Throat Solution RINSE MOUTH WITH 15ML (1 CAPFUL) FOR 30 SECONDS AM AND PM AFTER TOOTHBRUSHING. EXPECTORATE AFTER RINSING, DO NOT SWALLOW Quantity: 1 Refills: 0 Ordered: 10-Jan-2022 Paul REJI Dona Start : 10-Jan-2022 End : 26-Jan-2022 Active Completed/Discontinued Medications Medication Drug Class(es) Dates Sig (Normalized) Sig (Original) apixaban 5 mg oral tablet (3 sources) Factor Xa Inhibitor Start: 02-06-2022 take 1 tablet by mouth twice daily Eliquis 5 MG Oral Tablet Take 1 tablet twice daily Quantity: 180 Refills: 3 Ordered: 06-Feb-2022 Don Mane MD Start : 06-Feb-2022 Active to begin post-operatively azithromycin 250 mg oral tablet (20 sources) Macrolide Antimicrobial Start: 01-14-2019 End: 01-22-2019 Zithromax Z-Bj 250 MG Oral Tablet 1 (one) Tablet tad for 0 days Quantity: 1 {Package} Refills: 0 Ordered: 22-Jan-2019 China Hughes RN Start : 14-Jan-2019 End : 22-Jan-2019 Inactive Problems Active Problems Problem Classification Problem Date Documented Da te Episodic/Chronic Anxiety disorders (20 sources) Anxiety; Translations: [Anxiety] Onset: 01-10-2022 12-07-2017 Chronic Past or Other Problems Problem Classification Problem Date Documented Da te Episodic/Chronic Headache; including migraine (15 sources) Headache; including migraine Other aftercare (1 source) Other alf (current) drug therapy; Translations: [Other exterminator helper termite (current) drug therapy] Onset: 01-10-2022 Episodic Other and unspecified benign neoplasm (3 sources) Fibroadenoma of breast; Translations: [Benign neoplasm of unspecified breast] Onset: 09-06-2012 09-06-2012 Episodic Other connective tissue disease (1 source) Pain in left leg; Translations: [Pain in left leg] Onset: 12-22-2021 Episodic Other diseases of veins and lymphatics (1 source) Compression of vein; Translations: [Compression of vein] Onset: 12-22-2021 Episodic Other endocrine disorders (12 sources) Polycystic ovaries; Translations: [PCOS (polycystic ovarian syndrome)] Resolved: 08-09-2015 12-06-2015 Chronic Results Test Name Value Interpretation Reference Range Facil ity Vital Signs Date Time Vital Sign Value Performing Clinician Facility 06-04-2023 14:57-0400 Body height 160.02 cm [facility]; [facility] Work Phone: 06-04-2023 14:57-0400 Body mass index (BMI) [Ratio] 21.26 kg/m2 [facility]; [facility] Work Phone: 06-04-2023 14:57-0400 Body surface area Derived from formula 1.56 m2 [facility]; [facility] Work Phone: 06-04-2023 14:57-0400 Body temperature 96.4 [degF] [facility]; [facility] Work Phone: 06-04-2023 14:57-0400 Body weight 54.43 kg [facility]; [facility] Work Phone: 06-04-2023 14:57-0400 Diastolic blood pressure 76 mm[Hg] [facility]; [facility] Work Phone: Encounters Encounter Date Encounter Type Care Provider Facility Start: 06-04-2023 End: 06-05-2023 Office outpatient visit 25 minutes Tere An DO Work Phone: [facility] Start: 05-24-2023 End: 05-24-2023 ambulatory TERE AN Facility:[facility] Start: 05-24-2023 End: 05-24-2023 Patient encounter procedure Allie Miller APRN.COMPLETION ENGINEER Work Phone: [facility] Procedures Date Procedure Procedure Detail Performing Clinician Start: 05-24-2023 Radiologic exam ches t 2 views Allie Miller APRN.COMPLETION ENGINEER Work Phone: Start: 08-22-2022 COVID WITH FLUA+B, ROUTINE Allie Miller APRN.COMPLETION ENGINEER Work Phone: Start: 01-10-2022 Antibody screen Don barclay Plan of Treatment Date Care Activity Detail Author Start: 06-04-2023 Lipid panel LIPID PANEL (66630) [facility] Work Phone: Start: 06-04-2023 Hemoglobin glycosylated a1c HGB A1C (08844) [facility] Work Phone: Start: 06-04-2023 Assay of thyroid stimulating hormone tsh TSH (77699) [facility]; [facility] Work Phone: Start: 06-04-2023 Procedure Education Eprescribed prescriptions (G8553) [facility]; [facility] Work Phone: Start: 06-04-2023 Provider Instructions for Treatment Continue Current Prescription(s) [facility]; [facility] Work Phone: Start: 04-27-2023 Influenza vaccination Influenza Vaccine (#1) [facility] Start: 08-27-2022 DEPRESSION ASSESSMENT DEPRESSION ASSESSMENT [facility] Start: 04-27-2022 Influenza vaccination INFLUENZA (#1) [facility] Start: 03-06-2022 [facility], Provider: Don Mane, Status: Pen, Time: 7:00 AM [facility], Provider: Don Mane, Status: Pen, Time: 7:00 AM [facility] Work Phone: Start: 02-24-2022 [facility], Provider: Don Mane, Status: Pen, Time: 7:00 AM [facility], Provider: Don Mane, Status: Pen, Time: 7:00 AM [facility] Work Phone: Start: 11-23-2021 Blood count complete auto&auto difrntl wbc CBC with auto diff (62140) [facility]; [facility] Work Phone: Start: 11-23-2021 Comprehensive metabolic panel METABOLIC PANEL, COMPREHENSIVE (77760) [facility]; [facility] Work Phone: Start: 11-23-2021 Lipid panel LIPID PANEL (33087) [facility]; [facility] Work Phone: Start: 11-23-2021 Assay of triiodothyronine t3 free T3, FREE (TRIDOTHYRONINE) (75963) [facility]; [facility] Work Phone: Start: 11-23-2021 Assay of free thyroxine T4, FREE (THYROXINE) (06110) [facility]; [facility] Work Phone: Start: 11-23-2021 Assay of thyroid stimulating hormone tsh TSH (THYROID STIMULATING HORMONE) (10943) [facility]; [facility] Work Phone: Start: 08-27-2021 DEPRESSION ASSESSMENT DEPRESSION ASSESSMENT [facility] Start: 07-12-2020 Procedure Education Eprescribed prescriptions (G8553) [facility] Work Phone: Start: 07-06-2020 Procedure Education Eprescribed prescriptions (G8553) [facility] Work Phone: Start: 07-06-2020 Provider Instructions for Treatment Follow up in 2 days front to make virtual apt with KF in 2 day [facility] Work Phone: Start: 07-06-2020 Iaadiadoo influenza 2019 Novel Coronavirus (COVID-19), MAKAYLA (24861) [facility] Work Phone: Start: 01-07-2020 Procedure Education Eprescribed prescriptions (G8553) [facility] Work Phone: Start: 09-09-2019 PAP TESTING PAP TESTING [facility] Start: 2019 HPV TESTING HPV TESTING [facility] Start: 01-22-2019 Lipid panel LIPID PANEL (85072) [facility] Work Phone: Start: 01-22-2019 Hemoglobin A1c/Hemoglobin.total mass fraction (Bld) HGB A1C (35460) [facility] Work Phone: Start: 01-22-2019 Hemoglobin glycosylated a1c HGB A1C (21439) [facility]; [facility] Work Phone: Start: 01-22-2019 Assay of thyroid stimulating hormone tsh TSH (98476) [facility]; [facility] Work Phone: Start: 01-22-2019 Thyrotropin Qn TSH (07328) [facility] Work Phone: Start: 01-22-2019 Assay of free thyroxine T4, FREE (THYROXINE) (14449) [facility]; [facility] Work Phone: Start: 01-22-2019 T4 free mass conc T4, FREE (THYROXINE) (01259) [facility] Work Phone: Start: 01-22-2019 Assay of triiodothyronine t3 free T3, FREE (TRIDOTHYRONINE) (85315) [facility]; [facility] Work Phone: Start: 01-22-2019 T3 free mass conc T3, FREE (TRIDOTHYRONINE) (43817) [facility] Work Phone: Start: 01-10-2019 Procedure Education Eprescribed prescriptions (G8553) [facility] Work Phone: Start: 01-10-2019 Provider Instructions for Treatment Follow up if no improvement or if symptoms worsen [facility] Work Phone: Start: 12-07-2017 Provider Instructions for Treatment Follow up in 1 year or as needed [facility] Work Phone: Start: 12-07-2017 Lipid panel LIPID PANEL (04554) [facility] Work Phone: Start: 12-07-2017 Hemoglobin A1c/Hemoglobin.total mass fraction (Bld) HGB A1C (81375) [facility] Work Phone: Start: 12-07-2017 Hemoglobin glycosylated a1c HGB A1C (50380) [facility]; [facility] Work Phone: Start: 12-07-2017 Assay of thyroid stimulating hormone tsh TSH (62576) [facility]; [facility] Work Phone: Start: 12-07-2017 Thyrotropin Qn TSH (61379) [facility] Work Phone: Start: 12-07-2017 Assay of free thyroxine T4, FREE (THYROXINE) (78225) [facility]; [facility] Work Phone: Start: 12-07-2017 T4 free mass conc T4, FREE (THYROXINE) (77122) [facility] Work Phone: Start: 12-07-2017 Assay of triiodothyronine t3 free T3, FREE (TRIDOTHYRONINE) (81096) [facility]; [facility] Work Phone: Start: 12-07-2017 T3 free mass conc T3, FREE (TRIDOTHYRONINE) (72983) [facility] Work Phone: Start: 02-23-2017 Provider Instructions for Treatment [facility] Work Phone: Start: 02-23-2017 Assay of thyroid stimulating hormone tsh TSH (48958) [facility]; [facility] Work Phone: Start: 02-23-2017 Thyrotropin Qn TSH (51326) [facility] Work Phone: Start: 02-23-2017 Assay of triiodothyronine t3 free T3, FREE (TRIDOTHYRONINE) (64755) [facility]; [facility] Work Phone: Start: 02-23-2017 T3 free mass conc T3, FREE (TRIDOTHYRONINE) (69161) [facility] Work Phone: Start: 02-23-2017 Assay of free thyroxine T4, FREE (THYROXINE) (55447) [facility]; [facility] Work Phone: Start: 02-23-2017 T4 free mass conc T4, FREE (THYROXINE) (18528) [facility] Work Phone: Start: 02-23-2017 Lipid panel LIPID PANEL (62660) [facility] Work Phone: Start: 02-23-2017 Hemoglobin A1c/Hemoglobin.total mass fraction (Bld) HgA1C , Office (30806) [facility] Work Phone: Start: 02-23-2017 Hemoglobin glycosylated a1c HgA1C , Office (53752) [facility]; [facility] Work Phone: Start: 01-14-2016 Procedure Education Eprescribed prescriptions (G8553) [facility] Work Phone: Start: 12-06-2015 Provider Instructions for Treatment Follow up in 4 weeks [facility] Work Phone: Start: 08-09-2015 Procedure Education Eprescribed prescriptions (G8553) [facility] Work Phone: Start: 08-09-2015 Provider Instructions for Treatment Follow up in 3 months [facility] Work Phone: Start: 05-20-2015 Procedure Education Eprescribed prescriptions (G8553) [facility] Work Phone: Start: 02-01-2015 Procedure Education Eprescribed prescriptions (G8553) [facility] Work Phone: Start: 12-10-2014 Provider Instructions for Treatment [facility] Work Phone: Start: 11-05-2014 Provider Instructions for Treatment Reviewed Lab [facility] Work Phone: Start: 10-23-2014 Provider Instructions for Treatment [facility] Work Phone: Start: 11-18-2012 Provider Instructions for Treatment Follow up in 1 year [facility] Work Phone: Start: 11-27-2011 Skin test tuberculosis intradermal SKIN TEST INTRADERMAL TB (05203) [facility] Work Phone: Immunizations Immunization Date Immunization Notes Care Provider Dasha [facility] 01-23-2020 tetanus toxoid, redu tejas diphtheria toxoid, and acellular pertussis vaccine, adsorbed Tere An Work Phone: [facility] Work Phone: Payers Date Payer Category Payer Unknown [id number] 2019 Unknown 2019 Unknown [id number] 2017 Unknown [id number] 2016 Unknown [id number] 2015 Unknown [id number] 2014 Unknown [id number] 2013 Unknown [id number] 1989 Unknown [id number] 1989 Unknown [id number] [id number] 1989 Unknown [id number] [id number]. [id number] 1989 Unknown [id number] [id number]. [id number] 1989 Unknown [id number] [id number]. [id number] Private Health Insurance [facility] [id number] Social History Date Type Detail Facility Alcohol Use: Never smoker [facility] Work Phone: Start: 09-22-2022 End: 05-24-2023 Caffeine Use [facility] Work Phone: Exercise History: Exercises occasionally. [facility] Work Phone: [facility] Situation[facility]: Pets/Animals: Hamster. [facility] Work Phone: Tobacco use: Never smoker. [facility] Work Phone: Alcohol Use: Alcohol Use: [facility]; [facility] Work Phone: Exercise History: Exercise History: Compr ehens[facility]; [facility] Work Phone: Living Situation: Living Situation: [facility]; [facility] Work Phone: Pets/Animals: Pets/Animals: [facility]; [facility] Work Phone: Tobacco use: Tobacco use: [facility]; [facility] Work Phone: Start: 08-13-2012 Tobacco smoking status NHIS Never smoked tobacco [facility] Start: 08-13-2012 Tobacco use and exposure Smokeless tobacco non-user [facility] Start: 08-22-2022 End: 05-24-2023 Alcohol intake Current non-drinker of alcohol (finding) [facility] Start: 1990 Sex Assigned At Not on file [facility] Tobacco smoking status No Smoking Status Entered [facility] Sex Assigned At Female [facility] Start: 09-22-2022 End: 05-24-2023 Tobacco use panel [facility] National Score (1-100), lower number is lower risk 53 [facility] Functional Status Date Assessment Result Facility 05-12-2023 Functional Status Standard Safet y ID band on, Allergy Band on, Call device within reach, Bed in low position, Wheels locked, Upper/Half-Length side-rails up, Visitor at bedside, Safety level maintained [facility] Mental Status Date Assessment Result Facility 05-12-2023 Mental Status Orientation Oriented x 4 [facility] Clinical Notes 09-06-2012 to 05-24-2023 Allie Miller APRN.[facility] - 05/24/2023 7:13 PM EDTTelephone Encounter - Senait Espinosa MA - 08/25/2022 8:39 AM ESTTelephone Encounter - Senait Espinosa [place] - 08/24/2022 11:15 AM EST Note Date & Type Note Facility 05-24-2023 Note HNO ID: [id number] Author: Meeta Go RT(R) Service: ? Author Type: Cold Rolling Coordinator Type: Progress Notes Filed: 05/24/2023 7:34 PM Note Text: Radiology Service Progress Note PATIENT NAME: Татьяна Williamson DATE OF SERVICE: May 24, 2023 TIME: 7:27 PM PATIENT IDENTITY VERIFICATION COMPLETED USING TWO (2) IDENTIFIERS: Name and Date of confirmed by patient verbally. FALL SCREENING: Has the patient had 2 falls in the last year or 1 fall with injury or currently using an Ambulatory Assistive Device (Walker, Cane, Wheelchair, Crutches, etc.)? No PATIENT GENDER DATA: Female. status: : No status: NO. PATIENT RELEVANT IMPLANT DATA REVIEWED: Yes RADIOLOGY DEPARTMENT: General X-ray: Exam(s) Completed: Chest X-Ray PERIPHERAL IV DATA: Not applicable SIGNED BY: RT Lluvia(R) May 24, 2023 7:27 PM [facility] 05-24-2023 Note HNO ID: [id number] Author: Allie Miller APRN.COMPLETION ENGINEER Service: ? Author Type: Nurse Practitioner Type: Progress Notes Filed: 05/24/2023 7:50 PM Note Text: Subjective HPI HPI Татьяна Williamson is a 33 year old female who presents today for CC of cough, congestion for 4-5 days, chest heaviness, had illness for 6 weeks resolved 1 week ago after atb and steroids. Has tried otc medication for relief. Symptoms are worsened by nothing. Risk factors sick exposures at home. Nonsmoker. Denies possibility of being . .Patient presents with: Cough: Congestion x 6 weeks PAST MEDICAL HISTORY Diagnosis Date Acne Fibroadenoma of breast left PCOS (polycystic ovarian syndrome) PAST SURGICAL HISTORY Procedure Laterality Date PAST SURGICAL HISTORY OF 2-24-12 wisdom teeth PAST SURGICAL HISTORY OF breast biopsy left breast ALLERGIES Amoxicillin and Suprax [Cefixime] MEDICATIONS SYNTHROID 25 mcg tablet Take 25 mcg by mouth once daily. sertraline (ZOLOFT) 50 mg tablet Take 50 mg by mouth once daily. Rvwhdbjt-Wq-Kwd-Fe-FA ( VITAMIN) tab Take 1 tablet by mouth once daily. (Patient not taking: Reported on 05/24/2023) FAMILY HISTORY Problem Relation Age of Onset None Mother None Father None Brother Cancer Paternal Grandfather skin, prostate Heart Other both sides of family Allergies Father Allergies Brother Allergies Paternal Grandfather Cancer Maternal Grandmother skin Diabetes Maternal Grandmother Stroke Paternal Grandmother Social History Tobacco Use Smoking status: Never Smokeless tobacco: Never Substance Use Topics Alcohol use: No Drug use: No Review of Systems Constitutional: Negative for fever. HENT: Positive for congestion. Negative for ear pain, nosebleeds and sore throat. Respiratory: Positive for cough. Negative for shortness of breath and wheezing. Cardiovascular: Negative for chest pain. Musculoskeletal: Negative for neck pain. Skin: Negative for itching and rash. Objective Blood pressure 122/72, pulse 90, temperature 36.4 ?C (97.6 ?F), resp. rate 21, weight 55.5 kg (122 lb 6.4 oz), last menstrual period 08/22/2022, SpO2 99 %. Physical Exam Constitutional: General: She is not in acute distress. Appearance: She is not toxic-appearing or diaphoretic. HENT: Head: Normocephalic and atraumatic. Cardiovascular: Rate and Rhythm: Normal rate and regular rhythm. Heart sounds: Normal heart sounds, S1 normal and S2 normal. Pulmonary: Effort: Pulmonary effort is normal. Breath sounds: Examination of the right-middle field reveals rhonchi. Examination of the right-lower field reveals rhonchi. Rhonchi present. No decreased breath sounds, wheezing or rales. Lymphadenopathy: Cervical: No cervical adenopathy. Right cervical: No superficial cervical adenopathy. Left cervical: No superficial cervical adenopathy. Neurological: Mental Status: She is alert and oriented to person, place, and time. Gait: Gait is intact. ASSESSMENT/PLAN: 1. URI, acute - ICD9: 465.9, ICD10: J06.9 (primary diagnosis) - Discussed viral etiology and rationale for treatment. - Symptomatic treatment with prn analgesia - Supportive care with fluids and rest - Follow up in 3-5 days if symptoms persist or sooner if worsening of symptoms -If you experience chest pain/shortness of breath go to ER 2. Rhonchi at right lung base - ICD9: 786.7, ICD10: R09.89 Xray negative, start steroid today - XR CHEST 2V FRONTAL/LAT IMPRESSION: No acute radiographic abnormality. Dictated by : SUSHILA RODRIGUEZ MD - DOXYCYCLINE HYCLATE 100 MG TABLET 3. Lower resp. tract infection - ICD9: 519.8, ICD10: J22 If s/s worsen in 4-5 days fill/take atb rx - DOXYCYCLINE HYCLATE 100 MG TABLET Allie Miller APRN.[facility] 05-24-2023 History of Presen t illness Narrative Subjective HPI HPI Татьяна Williamson is a 33 year old female who presents today for CC of cough, congestion for 4-5 days, chest heaviness, had illness for 6 weeks resolved 1 week ago after atb and steroids. Has tried otc medication for relief. Symptoms are worsened by nothing. Risk factors sick exposures at home. Nonsmoker. Denies possibility of being . .Patient presents with: Cough: Congestion x 6 weeks PAST MEDICAL HISTORY Diagnosis Date Acne Fibroadenoma of breast left PCOS (polycystic ovarian syndrome) PAST SURGICAL HISTORY Procedure Laterality Date PAST SURGICAL HISTORY OF 2-24-12 wisdom teeth PAST SURGICAL HISTORY OF breast biopsy left breast ALLERGIES Amoxicillin and Suprax [Cefixime] MEDICATIONS SYNTHROID 25 mcg tablet Take 25 mcg by mouth once daily. sertraline (ZOLOFT) 50 mg tablet Take 50 mg by mouth once daily. Oxjeejcr-Jl-Onm-Fe-FA ( VITAMIN) tab Take 1 tablet by mouth once daily. (Patient not taking: Reported on 05/24/2023) FAMILY HISTORY Problem Relation Age of Onset None Mother None Father None Brother Cancer Paternal Grandfather skin, prostate Heart Other both sides of family Allergies Father Allergies Brother Allergies Paternal Grandfather Cancer Maternal Grandmother skin Diabetes Maternal Grandmother Stroke Paternal Grandmother Social History Tobacco Use Smoking status: Never Smokeless tobacco: Never Substance Use Topics Alcohol use: No Drug use: No Review of Systems Constitutional: Negative for fever. HENT: Positive for congestion. Negative for ear pain, nosebleeds and sore throat. Respiratory: Positive for cough. Negative for shortness of breath and wheezing. Cardiovascular: Negative for chest pain. Musculoskeletal: Negative for neck pain. Skin: Negative for itching and rash. Objective Blood pressure 122/72, pulse 90, temperature 36.4 C (97.6 F), resp. rate 21, weight 55.5 kg (122 lb 6.4 oz), last menstrual period 08/22/2022, SpO2 99 %. Physical Exam Constitutional: General: She is not in acute distress. Appearance: She is not toxic-appearing or diaphoretic. HENT: Head: Normocephalic and atraumatic. Cardiovascular: Rate and Rhythm: Normal rate and regular rhythm. Heart sounds: Normal heart sounds, S1 normal and S2 normal. Pulmonary: Effort: Pulmonary effort is normal. Breath sounds: Examination of the right-middle field reveals rhonchi. Examination of the right-lower field reveals rhonchi. Rhonchi present. No decreased breath sounds, wheezing or rales. Lymphadenopathy: Cervical: No cervical adenopathy. Right cervical: No superficial cervical adenopathy. Left cervical: No superficial cervical adenopathy. Neurological: Mental Status: She is alert and oriented to person, place, and time. Gait: Gait is intact. ASSESSMENT/PLAN: 1. URI, acute - ICD9: 465.9, ICD10: J06.9 (primary diagnosis) - Discussed viral etiology and rationale for treatment. - Symptomatic treatment with prn analgesia - Supportive care with fluids and rest - Follow up in 3-5 days if symptoms persist or sooner if worsening of symptoms -If you experience chest pain/shortness of breath go to ER 2. Rhonchi at right lung base - ICD9: 786.7, ICD10: R09.89 Xray negative, start steroid today - XR CHEST 2V FRONTAL/LAT IMPRESSION: No acute radiographic abnormality. Dictated by : SUSHILA RODRIGUEZ MD - DOXYCYCLINE HYCLATE 100 MG TABLET 3. Lower resp. tract infection - ICD9: 519.8, ICD10: J22 If s/s worsen in 4-5 days fill/take atb rx - DOXYCYCLINE HYCLATE 100 MG TABLET Allie Miller APRN.COMPLETION ENGINEER documented in this encounter [facility] 05-13-2023 Hospital Discharg e instructions Patient Education 05/12/2023 23:27:53 Bronchitis With Wheezing (Adult) Viral or Bacterial Bronchitis with Wheezing (Adult) Bronchitis is an infection of the air passages. It often occurs during a cold and is usually caused by a virus. Symptoms include cough with mucus (phlegm) and low-grade fever. This illness is contagious during the first few days and is spread through the air by coughing and sneezing, or by direct contact (touching the sick person and then touching your own eyes, nose, or mouth). If there is a lot of inflammation, air flow is restricted. The air passages may also go into spasm, especially if you have asthma. This causes wheezing and difficulty breathing even in people who do not have asthma. Bronchitis usually lasts 7 to 14 days. The wheezing should improve with treatment during the first week. An inhaler is often prescribed to relax the air passages and stop wheezing. Antibiotics will be prescribed if your doctor thinks there is also a secondary bacterial infection. Home care If symptoms are severe, rest at home for the first 2 to 3 days. When you go back to your usual activities, don't let yourself get too tired. Dont s'moke. Also avoid being exposed to secondhand smoke. You may use ooyf-ltc-hniatye medicine to control fever or pain, unless another medicine was prescribed. Note: If you have chronic liver or kidney disease or have ever had a stomach ulcer or gastrointestinal bleeding, talk with your healthcare provider before using these medicines. Also talk to your provider if you are taking medicine to prevent blood clots.) Aspirin should never be given to anyone younger than 18 years of age who is ill with a viral infection or fever. It may cause severe liver or brain damage. Your appetite may be poor, so a light diet is fine. Stay well hydrated by drinking 6 to 8 glasses of fluids per day (such as water, soft drinks, sports drinks, juices, tea, or soup). Extra fluids will help loosen secretions in the nose and lungs. Udgr-goh-hnlqgbq cough, cold, and sore-throat medicines will not shorten the length of the illness, but they may be helpful to reduce symptoms. (Note: Don't use decongestants if you have high blood pressure.) If you were given an inhaler, use it exactly as directed. If you need to use it more often than prescribed, your condition may be worsening. If this happens, contact your healthcare provider. If prescribed, finish all antibiotic medicine, even if you are feeling better after only a few days. Follow-up care Follow up with your healthcare provider, or as advised. If you had an X-ray or ECG (electrocardiogram), a specialist will review it. You will be notified of any new findings that may affect your care. If you are age 65 or older, or if you have a chronic lung disease or condition that affects your immune system, or you smoke, ask your healthcare provider about getting a pneumococcal vaccine and a yearly flu shot (influenza vaccine). When to seek medical advice Call your healthcare provider right away if any of these occur: Fever of 100.4 F (38 C) or higher, or as directed by your healthcare provider Coughing up increasing amounts of colored sputum Weakness, drowsiness, headache, facial pain, ear pain, or a stiff neck Call 911 Call 911 if any of these occur. Coughing up blood Worsening weakness, drowsiness, headache, or stiff neck Increased wheezing not helped with medication, shortness of breath, or pain with breathing [id number] [employer]. [address] [place] [address], [place] [address]. All rights reserved. This information is not intended as a substitute for professional medical care. Always follow your healthcare professional's instructions. Follow Up Care 05/12/2023 22:46:01 With:Follow up with primary care provider Address:Unknown When:2-4 days [facility] 05-12-2023 Note Discharge Instructions Thank you for allowing [facility] to assist you with your healthcare needs. The following is important discharge information regarding your hospital visit. What to Do Next Instructions from Your Care Team No qualifying data available. Post Acute Orders No qualifying data available. You Need to Schedule the Following Appointments Follow Up with Follow up with primary care provider When Within 2-4 days Allergies No active allergies Medications Please ask your primary doctor or pharmacist before taking any other medication not listed, including over the counter drugs, herbal medications, vitamins and or supplements as they may interact with your home medications. What How Much When Instructions Last Dose New albuterol (albuterol MDI (90 mcg/ inh) CFC free inhalation aerosol) 2 puff(s) by inhalation Four (4) times a day Printed Prescription New doxycycline (doxycycline hyclate 100 mg oral tablet) 1 tab(s) by mouth Two (2) times a day Duration: 7 Days Printed Prescription New predniSONE (predniSONE 10 mg oral tablet) 4 tab(s) by mouth Once a day Duration: 5 Days Printed Prescription Please take this list to your next doctor s visit. Bring all medications you take, including over the counter medications, herbals and other supplements with you to your doctor s visit. Patients and families are reminded to discard old lists and to update any records with all medication providers or retail pharmacies. Education Materials Viral or Bacterial Bronchitis with Wheezing (Adult) Bronchitis is an infection of the air passages. It often occurs during a cold and is usually caused by a virus. Symptoms include cough with mucus (phlegm) and low-grade fever. This illness is contagious during the first few days and is spread through the air by coughing and sneezing, or by direct contact (touching the sick person and then touching your own eyes, nose, or mouth). If there is a lot of inflammation, air flow is restricted. The air passages may also go into spasm, especially if you have asthma. This causes wheezing and difficulty breathing even in people who do not have asthma. Bronchitis usually lasts 7 to 14 days. The wheezing should improve with treatment during the first week. An inhaler is often prescribed to relax the air passages and stop wheezing. Antibiotics will be prescribed if your doctor thinks there is also a secondary bacterial infection. Home care If symptoms are severe, rest at home for the first 2 to 3 days. When you go back to your usual activities, don't let yourself get too tired. Dont s'moke. Also avoid being exposed to secondhand smoke. You may use rgqo-yjj-oypbssb medicine to control fever or pain, unless another medicine was prescribed. Note: If you have chronic liver or kidney disease or have ever had a stomach ulcer or gastrointestinal bleeding, talk with your healthcare provider before using these medicines. Also talk to your provider if you are taking medicine to prevent blood clots.) Aspirin should never be given to anyone younger than 18 years of age who is ill with a viral infection or fever. It may cause severe liver or brain damage. Your appetite may be poor, so a light diet is fine. Stay well hydrated by drinking 6 to 8 glasses of fluids per day (such as water, soft drinks, sports drinks, juices, tea, or soup). Extra fluids will help loosen secretions in the nose and lungs. Ueas-fch-aqfaqmu cough, cold, and sore-throat medicines will not shorten the length of the illness, but they may be helpful to reduce symptoms. (Note: Don't use decongestants if you have high blood pressure.) If you were given an inhaler, use it exactly as directed. If you need to use it more often than prescribed, your condition may be worsening. If this happens, contact your healthcare provider. If prescribed, finish all antibiotic medicine, even if you are feeling better after only a few days. Follow-up care Follow up with your healthcare provider, or as advised. If you had an X-ray or ECG (electrocardiogram), a specialist will review it. You will be notified of any new findings that may affect your care. If you are age 65 or older, or if you have a chronic lung disease or condition that affects your immune system, or you smoke, ask your healthcare provider about getting a pneumococcal vaccine and a yearly flu shot (influenza vaccine). When to seek medical advice Call your healthcare provider right away if any of these occur: Fever of 100.4 F (38 C) or higher, or as directed by your healthcare provider Coughing up increasing amounts of colored sputum Weakness, drowsiness, headache, facial pain, ear pain, or a stiff neck Call 911 Call 911 if any of these occur. Coughing up blood Worsening weakness, drowsiness, headache, or stiff neck Increased wheezing not helped with medication, shortness of breath, or pain with breathing [phone] [employer]. [address] [place] [id number]. All rights reserved. This information is not intended as a substitute for professional medical care. Always follow your healthcare professional's instructions. Additional Information VACCINATE! IT SAVES LIVES! Members of the community who have not yet received the COVID-19 vaccine and would like to receive it can visit one of [facility] vaccine clinics. There are many vaccine clinic locations within the [facility]. For locations and available times, please visit [email or web address] It is important to note that some COVID mobile vaccine clinics are held outdoors and may be canceled in rainy or stormy conditions. To learn more about pediatric vaccinations (ages 5-11), we invite you to visit the [facility] webpage. [email or web address] To learn more about the COVID-19 vaccine, we invite you to visit the CDC website for a list of frequently asked questions. https://www.cdc.gov/coronavirus/ 2019-ncov/vaccines/faq.html [facility] Patient Portal Access Instructions: Stay connected with your healthcare team and access your personal medical information anytime with the [facility] Patient Portal. If you would like a full copy of your medical records please contact the [facility] Medical Records Department Sunday through Sunday between 8a.m. and 4:30p.m. Please follow the directions below to access the portal: 1.Access the email account you provided upon registration to the hospital.2.Look for an invitation email from [facility].3.Open the email and access the invitation link: Accept Invitation to [facility].Fill in the required capellan to create your account. Sign into www.[email or web address] with your username and password that you created in the above steps to stay up to date. You can then view a summary of results, a summary of your visits, and the ability to download your summaries to your computer or send the information securely to a physician. Remember that your healthcare information is confidential, so carefully consider who you will allow to register on the [employer] Patient Portal for access to your information. You can also access the [employer] Patient Portal on the [employer] xu. Simply click on Health Records under Health Data and then click on the [employer] logo. HOW TO SAFELY DISPOSE OF PRESCRIPTION MEDICATIONS Please use one of the following methods to safely dispose of your unused medications. 1.Use a drug disposal kit: the drug disposal pouch allows you to safely discard your old and unused drugs. Ask your nurse to give you one when you are discharged.2.Visit a local take-back location: Many local pharmacies and police departments have programs that collect old and unwanted prescription drugs. Call your local pharmacy or go to http://Mobile Action.Bonica.co/6K5Uh8t to find one close to you.3.Make use of household items: Use cat litter or old coffee grounds to dispose medications if other options are not available. Mix your drugs with these household products, seal them in an airtight container and throw it into the garbage. Call [facility]: [phone] to be sure your drugs can be disposed of in this way. Some medicines may require a different approach.4.Never flush your medications down the toilet. IF YOU HAVE BEEN PRESCRIBED AN OPIOIDS FOR PAIN If you have been prescribed an opioid (such as hydrocodone, oxycodone or morphine), it is critical to understand the possible side effects and risks of opioid pain medications. Even when taken as directed, opioids can have several side effects including: Tolerance, meaning you might need to take more of a medication for the same pain relief. Nausea, vomiting and/or constipation. Sleepiness, dizziness, dry mouth, confusion, depression or itching. Physical dependence, meaning you have withdrawal symptoms when a medication is stopped ? this can develop within a few days. KNOW YOUR RESPONSIBILITIES It is important to know exactly how much and how often to take the opioid pain medications you are prescribed. Never take opioids in higher amounts or more often than prescribed. Do not combine opioids with alcohol or other drugs that cause drowsiness, such as benzodiazepines, also known as benzos, including diazepam and alprazolam, muscle relaxants or sleep aids. Never sell or share prescription opioids. This is illegal. Store opioids in a secure place and out of reach of others (including children, family, friends and visitors). The last page(s) of this document has been signed and retained as a CHART COPY Signatures Patient Education Materials Bronchitis With Wheezing (Adult) Medication Leaflets My discharge plan and instructions have been reviewed and explained to me and I,ТАТЬЯНА WILLIAMSON understand my current condition and have read and understand these discharge instructions. I have received a written copy of the plan/instructions. If I have questions, I am aware that I should contact my doctor. Patient/Check Clerk Signature: Date/Time: Relationship to Patient: Witness Name/Signature: Date/Time: [facility] 08-25-2022 Miscellaneous Notes Third and final call attempt, VM left instructing patient to call back to receive results, have also been viewed via [employer]. Senait Espinosa MA Second call attempt, VM left instructing patient to return call to discuss results. Patient has also viewed results via [employer]. Senait Espinosa MA Left message for return call. Kareen Oviedo LPN Please notify patient was flu A positive. May continue tamiflu. F/u for continued/worsening s/s. Otc cough/cold medication advised. documented in this encounter [facility] 08-22-2022 Influenza virus A and B RNA and SARS-CoV-2 (COVID-19) N gene panel MAKAYLA+probe (Resp) COVID 19 RESULT: SARS-CoV-2 (Agent of COVID-19) Not Detected by RT-PCR or equivalent method. ngozi RJSL-EcS-8_Xfzxt [employer] (MODESTO)_EUA This test was developed and its performance characteristics determined by [facility]'s [facility]. This test has been authorized by FDA under an Emergency Use Authorization (EUA). This test has been validated in accordance with the FDA's Guidance Document Policy for Diagnostics Testing in Laboratories Certified to Perform High Complexity Testing under CLIA prior to Emergency use Authorization for Coronavirus Disease 2019 during the Public Health Emergency issued on October 25, 2019. Test performed by [facility], [facility] [place], [address] [place] [address]. INFLUENZA A PCR: Positive for Influenza A by RT-PCR INFLUENZA B PCR: Negative for Influenza B by RT-PCR [facility] documented as of this encounter (statuses as of 08/28/2022) [facility] History of Past illness Narrative* Problem Noted Date Resolved Date Abnormal findings on diagnostic imaging of breas t 09/06/2012 09/09/2014 documented as of this encounter (statuses as of 08/30/2022) [facility] History of Past illness Narrative* Problem Noted Date Diagnosed Date Resolved Date Abnormal findings on diagnos tic imaging of breast 09/06/2012 09/09/2014 documented as of this encounter (statuses as of 05/25/2023) [facility] - [facility]* The patient presents to the office today for a Vascular Surgery consultation. * The patient presents for evaluation of. May -Thurner syndrome. MP-Mmucrugayv-Tmvrkk Work Phone: Evaluation + Plan note No data available for this section [facility] Evaluation note* Diagnosis Influenza-like illness- Primary Influenza with other respiratory manifestations [facility] Diagnosis URI, acute- Primary Acute upper respiratory infections of unspecified site Rhonchi at right lung base Lower resp. tract infection Other diseases of respiratory system, not elsewhere classified [facility]* 31 y/o referred by * severe pain lle * swelling * 2 yrs ago delivered. * 37 weeks. - no complications - left leg was pretty painful and swollen; large vv; foot was painful/purple/warm to touch most of the time. several US during and neg for DVT * also had issues with the veins during her 1st * has compression therapy * MRI was done at end of - at [facility] * currently the leg feels like the from the groin crease has some pain * increased pain and swelling and vv * most of * no pelvic pain or pressure no painful intercourse * no h/o bleeding vv no phlebitis * thigh high 30-40mmHg * no h/o DVT * 1st was ruled out for DVt given swelling - in 2017 - started 2nd 08/28 of * prior to - she never had any issue s- had some spider veins in the thigh and that was it. * both vaginal delivery * has had laparoscopy in 2016 for IVF work up. * no other abdominal / pelvic surgeries. * All other systems have been reviewed and are negative for complaint AH-Knzemmmqxf-Iahgkl Work Phone: Instructions* Name Dates Details How to access health informa tion online Indication:SARS (severe acute respiratory syndrome) Start:12-Jul-2020 Instruction Type:Patient Education How to access health informa tion online - Detail Indication:SARS (severe acute respiratory syndrome) Start:12-Jul-2020 Instruction Type:Patient Education Patient Instructions Indication:SARS (severe acute respiratory syndrome) Start:12-Jul-2020 Instruction Type:Provider Instructions for Treatment How to access health informa tion online Indication:BMI 21.0-21.9, adult Start:06-Jul-2020 Instruction Type:Patient Education How to access health informa tion online - Detail Indication:BMI 21.0-21.9, adult Start:06-Jul-2020 Instruction Type:Patient Education Patient Instructions Indication:BMI 21.0-21.9, adult Start:06-Jul-2020 Instruction Type:Provider Instructions for Treatment How to access health informa tion online - Detail Indication:BMI 22.0-22.9, adult Start:07-Jan-2020 Instruction Type:Patient Education How to access health informa tion online Indication:BMI 22.0-22.9, adult Start:07-Jan-2020 Instruction Type:Patient Education Patient Instructions Indication:BMI 22.0-22.9, adult Start:07-Jan-2020 Instruction Type:Provider Instructions for Treatment How to access health informa tion online Indication:Non-smoker Start:22-Jan-2019 Instruction Type:Patient Education How to access health informa tion online - Detail Indication:Non-smoker Start:22-Jan-2019 Instruction Type:Patient Education Patient Instructions Indication:Non-smoker Start:22-Jan-2019 Instruction Type:Provider Instructions for Treatment How to access health informa tion online Indication:Non-smoker Start:10-Jan-2019 Instruction Type:Patient Education How to access health informa tion online - Detail Indication:Non-smoker Start:10-Jan-2019 Instruction Type:Patient Education Patient Instructions Indication:Non-smoker Start:10-Jan-2019 Instruction Type:Provider Instructions for Treatment How to access health informa tion online Indication:Non-smoker Start:07-Dec-2017 Instruction Type:Patient Education How to access health informa tion online - Detail Indication:Non-smoker Start:07-Dec-2017 Instruction Type:Patient Education Patient Instructions Indication:Non-smoker Start:07-Dec-2017 Instruction Type:Provider Instructions for Treatment How to access health informa tion online Indication:Non-smoker Start:23-Feb-2017 Instruction Type:Patient Education How to access health informa tion online - Detail Indication:Non-smoker Start:23-Feb-2017 Instruction Type:Patient Education Patient Instructions Indication:Non-smoker Start:23-Feb-2017 Instruction Type:Provider Instructions for Treatment How to access health informa tion online Indication:Anxiety Start:14-Jan-2016 Instruction Type:Patient Education How to access health informa tion online - Detail Indication:Anxiety Start:14-Jan-2016 Instruction Type:Patient Education Patient Instructions Indication:Cystic acne Start:09-Aug-2015 Instruction Type:Provider Instructions for Treatment How to access health informa tion online Indication:Zinc deficiency Start:20-May-2015 Instruction Type:Patient Education How to access health informa tion online - Detail Indication:Zinc deficiency Start:20-May-2015 Instruction Type:Patient Education Patient Instructions Indication:Zinc deficiency Start:20-May-2015 Instruction Type:Provider Instructions for Treatment How to access health informa tion online Indication:Hyperglycemia Start:01-Feb-2015 Instruction Type:Patient Education How to access health informa tion online - Detail Indication:Hyperglycemia Start:01-Feb-2015 Instruction Type:Patient Education Patient Instructions Indication:Hyperglycemia Start:01-Feb-2015 Instruction Type:Provider Instructions for Treatment Patient Instructions Indication:FAMILY HISTORY OF DIABETES MELLITUS Start:18-Nov-2012 Instruction Type:Provider Instructions for Treatment [facility]; [facility] Work Phone: Instructions* Name Dates Details How to access health informa tion online Indication:SARS (severe acute respiratory syndrome) Start:12-Jul-2020 Instruction Type:Patient Education How to access health informa tion online - Detail Indication:SARS (severe acute respiratory syndrome) Start:12-Jul-2020 Instruction Type:Patient Education Patient Instructions Indication:SARS (severe acute respiratory syndrome) Start:12-Jul-2020 Instruction Type:Provider Instructions for Treatment How to access health informa tion online Indication:BMI 21.0-21.9, adult Start:06-Jul-2020 Instruction Type:Patient Education How to access health informa tion online - Detail Indication:BMI 21.0-21.9, adult Start:06-Jul-2020 Instruction Type:Patient Education Patient Instructions Indication:BMI 21.0-21.9, adult Start:06-Jul-2020 Instruction Type:Provider Instructions for Treatment How to access health informa tion online - Detail Indication:BMI 22.0-22.9, adult Start:07-Jan-2020 Instruction Type:Patient Education How to access health informa tion online Indication:BMI 22.0-22.9, adult Start:07-Jan-2020 Instruction Type:Patient Education Patient Instructions Indication:BMI 22.0-22.9, adult Start:07-Jan-2020 Instruction Type:Provider Instructions for Treatment How to access health informa tion online Indication:Non-smoker Start:22-Jan-2019 Instruction Type:Patient Education How to access health informa tion online - Detail Indication:Non-smoker Start:22-Jan-2019 Instruction Type:Patient Education Patient Instructions Indication:Non-smoker Start:22-Jan-2019 Instruction Type:Provider Instructions for Treatment How to access health informa tion online Indication:Non-smoker Start:10-Jan-2019 Instruction Type:Patient Education How to access health informa tion online - Detail Indication:Non-smoker Start:10-Jan-2019 Instruction Type:Patient Education Patient Instructions Indication:Non-smoker Start:10-Jan-2019 Instruction Type:Provider Instructions for Treatment How to access health informa tion online Indication:Non-smoker Start:07-Dec-2017 Instruction Type:Patient Education How to access health informa tion online - Detail Indication:Non-smoker Start:07-Dec-2017 Instruction Type:Patient Education Patient Instructions Indication:Non-smoker Start:07-Dec-2017 Instruction Type:Provider Instructions for Treatment How to access health informa tion online Indication:Non-smoker Start:23-Feb-2017 Instruction Type:Patient Education How to access health informa tion online - Detail Indication:Non-smoker Start:23-Feb-2017 Instruction Type:Patient Education Patient Instructions Indication:Non-smoker Start:23-Feb-2017 Instruction Type:Provider Instructions for Treatment How to access health informa tion online Indication:Anxiety Start:14-Jan-2016 Instruction Type:Patient Education How to access health informa tion online - Detail Indication:Anxiety Start:14-Jan-2016 Instruction Type:Patient Education Patient Instructions Indication:Cystic acne Start:09-Aug-2015 Instruction Type:Provider Instructions for Treatment How to access health informa tion online Indication:Zinc deficiency Start:20-May-2015 Instruction Type:Patient Education How to access health informa tion online - Detail Indication:Zinc deficiency Start:20-May-2015 Instruction Type:Patient Education Patient Instructions Indication:Zinc deficiency Start:20-May-2015 Instruction Type:Provider Instructions for Treatment How to access health informa tion online Indication:Hyperglycemia Start:01-Feb-2015 Instruction Type:Patient Education How to access health informa tion online - Detail Indication:Hyperglycemia Start:01-Feb-2015 Instruction Type:Patient Education Patient Instructions Indication:Hyperglycemia Start:01-Feb-2015 Instruction Type:Provider Instructions for Treatment Patient Instructions Indication:FAMILY HISTORY OF DIABETES MELLITUS Start:18-Nov-2012 Instruction Type:Provider Instructions for Treatment [facility]; [facility] Work Phone: Instructions* Name Dates Details How to access health informa tion online Indication:SARS (severe acute respiratory syndrome) Start:12-Jul-2020 Instruction Type:Patient Education How to access health informa tion online - Detail Indication:SARS (severe acute respiratory syndrome) Start:12-Jul-2020 Instruction Type:Patient Education Patient Instructions Indication:SARS (severe acute respiratory syndrome) Start:12-Jul-2020 Instruction Type:Provider Instructions for Treatment How to access health informa tion online Indication:BMI 21.0-21.9, adult Start:06-Jul-2020 Instruction Type:Patient Education How to access health informa tion online - Detail Indication:BMI 21.0-21.9, adult Start:06-Jul-2020 Instruction Type:Patient Education Patient Instructions Indication:BMI 21.0-21.9, adult Start:06-Jul-2020 Instruction Type:Provider Instructions for Treatment How to access health informa tion online - Detail Indication:BMI 22.0-22.9, adult Start:07-Jan-2020 Instruction Type:Patient Education How to access health informa tion online Indication:BMI 22.0-22.9, adult Start:07-Jan-2020 Instruction Type:Patient Education Patient Instructions Indication:BMI 22.0-22.9, adult Start:07-Jan-2020 Instruction Type:Provider Instructions for Treatment How to access health informa tion online Indication:Non-smoker Start:22-Jan-2019 Instruction Type:Patient Education How to access health informa tion online - Detail Indication:Non-smoker Start:22-Jan-2019 Instruction Type:Patient Education Patient Instructions Indication:Non-smoker Start:22-Jan-2019 Instruction Type:Provider Instructions for Treatment How to access health informa tion online Indication:Non-smoker Start:10-Jan-2019 Instruction Type:Patient Education How to access health informa tion online - Detail Indication:Non-smoker Start:10-Jan-2019 Instruction Type:Patient Education Patient Instructions Indication:Non-smoker Start:10-Jan-2019 Instruction Type:Provider Instructions for Treatment How to access health informa tion online Indication:Non-smoker Start:07-Dec-2017 Instruction Type:Patient Education How to access health informa tion online - Detail Indication:Non-smoker Start:07-Dec-2017 Instruction Type:Patient Education Patient Instructions Indication:Non-smoker Start:07-Dec-2017 Instruction Type:Provider Instructions for Treatment How to access health informa tion online Indication:Non-smoker Start:23-Feb-2017 Instruction Type:Patient Education How to access health informa tion online - Detail Indication:Non-smoker Start:23-Feb-2017 Instruction Type:Patient Education Patient Instructions Indication:Non-smoker Start:23-Feb-2017 Instruction Type:Provider Instructions for Treatment How to access health informa tion online Indication:Anxiety Start:14-Jan-2016 Instruction Type:Patient Education How to access health informa tion online - Detail Indication:Anxiety Start:14-Jan-2016 Instruction Type:Patient Education Patient Instructions Indication:Cystic acne Start:09-Aug-2015 Instruction Type:Provider Instructions for Treatment How to access health informa tion online Indication:Zinc deficiency Start:20-May-2015 Instruction Type:Patient Education How to access health informa tion online - Detail Indication:Zinc deficiency Start:20-May-2015 Instruction Type:Patient Education Patient Instructions Indication:Zinc deficiency Start:20-May-2015 Instruction Type:Provider Instructions for Treatment How to access health informa tion online Indication:Hyperglycemia Start:01-Feb-2015 Instruction Type:Patient Education How to access health informa tion online - Detail Indication:Hyperglycemia Start:01-Feb-2015 Instruction Type:Patient Education Patient Instructions Indication:Hyperglycemia Start:01-Feb-2015 Instruction Type:Provider Instructions for Treatment Patient Instructions Indication:FAMILY HISTORY OF DIABETES MELLITUS Start:18-Nov-2012 Instruction Type:Provider Instructions for Treatment [facility]; [facility] Work Phone: Instructions* Name Dates Details How to access health informa tion online Indication:SARS (severe acute respiratory syndrome) Start:12-Jul-2020 Instruction Type:Patient Education How to access health informa tion online - Detail Indication:SARS (severe acute respiratory syndrome) Start:12-Jul-2020 Instruction Type:Patient Education Patient Instructions Indication:SARS (severe acute respiratory syndrome) Start:12-Jul-2020 Instruction Type:Provider Instructions for Treatment How to access health informa tion online Indication:BMI 21.0-21.9, adult Start:06-Jul-2020 Instruction Type:Patient Education How to access health informa tion online - Detail Indication:BMI 21.0-21.9, adult Start:06-Jul-2020 Instruction Type:Patient Education Patient Instructions Indication:BMI 21.0-21.9, adult Start:06-Jul-2020 Instruction Type:Provider Instructions for Treatment How to access health informa tion online - Detail Indication:BMI 22.0-22.9, adult Start:07-Jan-2020 Instruction Type:Patient Education How to access health informa tion online Indication:BMI 22.0-22.9, adult Start:07-Jan-2020 Instruction Type:Patient Education Patient Instructions Indication:BMI 22.0-22.9, adult Start:07-Jan-2020 Instruction Type:Provider Instructions for Treatment How to access health informa tion online Indication:Non-smoker Start:22-Jan-2019 Instruction Type:Patient Education How to access health informa tion online - Detail Indication:Non-smoker Start:22-Jan-2019 Instruction Type:Patient Education Patient Instructions Indication:Non-smoker Start:22-Jan-2019 Instruction Type:Provider Instructions for Treatment How to access health informa tion online Indication:Non-smoker Start:10-Jan-2019 Instruction Type:Patient Education How to access health informa tion online - Detail Indication:Non-smoker Start:10-Jan-2019 Instruction Type:Patient Education Patient Instructions Indication:Non-smoker Start:10-Jan-2019 Instruction Type:Provider Instructions for Treatment How to access health informa tion online Indication:Non-smoker Start:07-Dec-2017 Instruction Type:Patient Education How to access health informa tion online - Detail Indication:Non-smoker Start:07-Dec-2017 Instruction Type:Patient Education Patient Instructions Indication:Non-smoker Start:07-Dec-2017 Instruction Type:Provider Instructions for Treatment How to access health informa tion online Indication:Non-smoker Start:23-Feb-2017 Instruction Type:Patient Education How to access health informa tion online - Detail Indication:Non-smoker Start:23-Feb-2017 Instruction Type:Patient Education Patient Instructions Indication:Non-smoker Start:23-Feb-2017 Instruction Type:Provider Instructions for Treatment How to access health informa tion online Indication:Anxiety Start:14-Jan-2016 Instruction Type:Patient Education How to access health informa tion online - Detail Indication:Anxiety Start:14-Jan-2016 Instruction Type:Patient Education Patient Instructions Indication:Cystic acne Start:09-Aug-2015 Instruction Type:Provider Instructions for Treatment How to access health informa tion online Indication:Zinc deficiency Start:20-May-2015 Instruction Type:Patient Education How to access health informa tion online - Detail Indication:Zinc deficiency Start:20-May-2015 Instruction Type:Patient Education Patient Instructions Indication:Zinc deficiency Start:20-May-2015 Instruction Type:Provider Instructions for Treatment How to access health informa tion online Indication:Hyperglycemia Start:01-Feb-2015 Instruction Type:Patient Education How to access health informa tion online - Detail Indication:Hyperglycemia Start:01-Feb-2015 Instruction Type:Patient Education Patient Instructions Indication:Hyperglycemia Start:01-Feb-2015 Instruction Type:Provider Instructions for Treatment Patient Instructions Indication:FAMILY HISTORY OF DIABETES MELLITUS Start:18-Nov-2012 Instruction Type:Provider Instructions for Treatment [facility]; [facility] Work Phone: Instructions* Name Dates Details Patient Instructions Indication:Non-smoker Start:04-Jun-2023 Instruction Type:Provider Instructions for Treatment How to Access Health Informa tion Online using Patient Portal and [employer] Apps Indication:Non-smoker Start:04-Jun-2023 Instruction Type:Patient Education How to access health informa tion online Indication:SARS (severe acute respiratory syndrome) Start:12-Jul-2020 Instruction Type:Patient Education How to access health informa tion online - Detail Indication:SARS (severe acute respiratory syndrome) Start:12-Jul-2020 Instruction Type:Patient Education Patient Instructions Indication:SARS (severe acute respiratory syndrome) Start:12-Jul-2020 Instruction Type:Provider Instructions for Treatment How to access health informa tion online Indication:BMI 21.0-21.9, adult Start:06-Jul-2020 Instruction Type:Patient Education How to access health informa tion online - Detail Indication:BMI 21.0-21.9, adult Start:06-Jul-2020 Instruction Type:Patient Education Patient Instructions Indication:BMI 21.0-21.9, adult Start:06-Jul-2020 Instruction Type:Provider Instructions for Treatment How to access health informa tion online - Detail Indication:BMI 22.0-22.9, adult Start:07-Jan-2020 Instruction Type:Patient Education How to access health informa tion online Indication:BMI 22.0-22.9, adult Start:07-Jan-2020 Instruction Type:Patient Education Patient Instructions Indication:BMI 22.0-22.9, adult Start:07-Jan-2020 Instruction Type:Provider Instructions for Treatment How to access health informa tion online Indication:Non-smoker Start:22-Jan-2019 Instruction Type:Patient Education How to access health informa tion online - Detail Indication:Non-smoker Start:22-Jan-2019 Instruction Type:Patient Education Patient Instructions Indication:Non-smoker Start:22-Jan-2019 Instruction Type:Provider Instructions for Treatment How to access health informa tion online Indication:Non-smoker Start:10-Jan-2019 Instruction Type:Patient Education How to access health informa tion online - Detail Indication:Non-smoker Start:10-Jan-2019 Instruction Type:Patient Education Patient Instructions Indication:Non-smoker Start:10-Jan-2019 Instruction Type:Provider Instructions for Treatment How to access health informa tion online Indication:Non-smoker Start:07-Dec-2017 Instruction Type:Patient Education How to access health informa tion online - Detail Indication:Non-smoker Start:07-Dec-2017 Instruction Type:Patient Education Patient Instructions Indication:Non-smoker Start:07-Dec-2017 Instruction Type:Provider Instructions for Treatment How to access health informa tion online Indication:Non-smoker Start:23-Feb-2017 Instruction Type:Patient Education How to access health informa tion online - Detail Indication:Non-smoker Start:23-Feb-2017 Instruction Type:Patient Education Patient Instructions Indication:Non-smoker Start:23-Feb-2017 Instruction Type:Provider Instructions for Treatment How to access health informa tion online Indication:Anxiety Start:14-Jan-2016 Instruction Type:Patient Education How to access health informa tion online - Detail Indication:Anxiety Start:14-Jan-2016 Instruction Type:Patient Education Patient Instructions Indication:Cystic acne Start:09-Aug-2015 Instruction Type:Provider Instructions for Treatment How to access health informa tion online Indication:Zinc deficiency Start:20-May-2015 Instruction Type:Patient Education How to access health informa tion online - Detail Indication:Zinc deficiency Start:20-May-2015 Instruction Type:Patient Education Patient Instructions Indication:Zinc deficiency Start:20-May-2015 Instruction Type:Provider Instructions for Treatment How to access health informa tion online Indication:Hyperglycemia Start:01-Feb-2015 Instruction Type:Patient Education How to access [employer] online - Detail Indication:Hyperglycemia Start:01-Feb-2015 Instruction Type:Patient Education Patient Instructions Indication:Hyperglycemia Start:01-Feb-2015 Instruction Type:Provider Instructions for Treatment Patient Instructions Indication:FAMILY HISTORY OF DIABETES MELLITUS Start:18-Nov-2012 Instruction Type:Provider Instructions for Treatment [facility]; [facility] Work Phone: Family History Unknown Family Member Name Dates Details Diabetes Mellitus Comments:Maternal Grandmothe r. Status:Active Hypercholesterolemia Comments:Maternal Grandfathe r. Status:Active Hypertension Comments:Maternal Grandfathe r. Status:Active Skin Cancer Comments:Maternal Grandfathe r. Paternal Grandfather. Status:Active Unknown Family Member Name Dates Details Diabetes Mellitus Comments:Maternal Grandmothe r. Status:Active Hypercholesterolemia Comments:Maternal Grandfathe r. Status:Active Hypertension Comments:Maternal Grandfathe r. Status:Active Skin Cancer Comments:Maternal Grandfathe r. Paternal Grandfather. Status:Active Unknown Family Member Name Dates Details Diabetes Mellitus Comments:Maternal Grandmothe r. Status:Active Hypercholesterolemia Comments:Maternal Grandfathe r. Status:Active Hypertension Comments:Maternal Grandfathe r. Status:Active Skin Cancer Comments:Maternal Grandfathe r. Paternal Grandfather. Status:Active Unknown Family Member Name Dates Details Diabetes Mellitus Comments:Maternal Grandmothe r. Status:Active Hypercholesterolemia Comments:Maternal Grandfathe r. Status:Active Hypertension Comments:Maternal Grandfathe r. Status:Active Skin Cancer Comments:Maternal Grandfathe r. Paternal Grandfather. Status:Active Unknown Family Member Name Dates Details Diabetes Mellitus Comments:Maternal Grandmothe r. Status:Active Hypercholesterolemia Comments:Maternal Grandfathe r. Status:Active Hypertension Comments:Maternal Grandfathe r. Status:Active Skin Cancer Comments:Maternal Grandfathe r. Paternal Grandfather. Status:Active Unknown Family Member Name Dates Details Diabetes Mellitus Comments:Maternal Grandmothe r. Status:Active Hypercholesterolemia Comments:Maternal Grandfathe r. Status:Active Hypertension Comments:Maternal Grandfathe r. Status:Active Skin Cancer Comments:Maternal Grandfathe r. Paternal Grandfather. Status:Active Unknown Family Member Name Dates Details Diabetes Mellitus Comments:Maternal Grandmothe r. Status:Active Hypercholesterolemia Comments:Maternal Grandfathe r. Status:Active Hypertension Comments:Maternal Grandfathe r. Status:Active Skin Cancer Comments:Maternal Grandfathe r. Paternal Grandfather. Status:Active Unknown Family Member Name Dates Details Diabetes Mellitus Comments:Maternal Grandmothe r. Status:Active Hypercholesterolemia Comments:Maternal Grandfathe r. Status:Active Hypertension Comments:Maternal Grandfathe r. Status:Active Skin Cancer Comments:Maternal Grandfathe r. Paternal Grandfather. Status:Active Unknown Family Member Name Dates Details Diabetes Mellitus Comments:Maternal Grandmothe r. Status:Active Hypercholesterolemia Comments:Maternal Grandfathe r. Status:Active Hypertension Comments:Maternal Grandfathe r. Status:Active Skin Cancer Comments:Maternal Grandfathe r. Paternal Grandfather. Status:Active Unknown Family Member Name Dates Details Diabetes Mellitus Comments:Maternal Grandmothe r. Status:Active Hypercholesterolemia Comments:Maternal Grandfathe r. Status:Active Hypertension Comments:Maternal Grandfathe r. Status:Active Skin Cancer Comments:Maternal Grandfathe r. Paternal Grandfather. Status:Active Unknown Family Member Name Dates Details Diabetes Mellitus Comments:Maternal Grandmothe r. Status:Active Hypercholesterolemia Comments:Maternal Grandfathe r. Status:Active Hypertension Comments:Maternal Grandfathe r. Status:Active Skin Cancer Comments:Maternal Grandfathe r. Paternal Grandfather. Status:Active Unknown Family Member Name Dates Details Diabetes Mellitus Comments:Maternal Grandmothe r. Status:Active Hypercholesterolemia Comments:Maternal Grandfathe r. Status:Active Hypertension Comments:Maternal Grandfathe r. Status:Active Skin Cancer Comments:Maternal Grandfathe r. Paternal Grandfather. Status:Active Unknown Family Member Name Dates Details Diabetes Mellitus Comments:Maternal Grandmothe r. Status:Active Hypercholesterolemia Comments:Maternal Grandfathe r. Status:Active Hypertension Comments:Maternal Grandfathe r. Status:Active Skin Cancer Comments:Maternal Grandfathe r. Paternal Grandfather. Status:Active Unknown Family Member Name Dates Details Diabetes Mellitus Comments:Maternal Grandmothe r. Status:Active Hypercholesterolemia Comments:Maternal Grandfathe r. Status:Active Hypertension Comments:Maternal Grandfathe r. Status:Active Skin Cancer Comments:Maternal Grandfathe r. Paternal Grandfather. Status:Active Instructions Name Dates Details Non-smoker : How to access h ealth information online Indication:Non-smoker Non-smoker : How to access h ealth information online - Detail Indication:Non-smoker Non-smoker : Patient Instruc tions Indication:Non-smoker Anxiety : How to access heal th information online Indication:Anxiety Anxiety : How to access heal th information online - Detail Indication:Anxiety Cystic acne : Patient Instru ctions Indication:Cystic acne Zinc deficiency : How to acc ess health information online Indication:Zinc deficiency Zinc deficiency : How to acc ess health information online - Detail Indication:Zinc deficiency Zinc deficiency : Patient In structions Indication:Zinc deficiency Hyperglycemia : How to acces s health information online Indication:Hyperglycemia Hyperglycemia : How to acces s health information online - Detail Indication:Hyperglycemia Hyperglycemia : Patient Inst ructions Indication:Hyperglycemia FAMILY HISTORY OF DIABETES M ELLITUS : Patient Instructions Indication:FAMILY HISTORY OF DIABETES MELLITUS Name Dates Details How to access health informa tion online Indication:Non-smoker Start:10-Jan-2019 Instruction Type:Patient Education How to access health informa tion online - Detail Indication:Non-smoker Start:10-Jan-2019 Instruction Type:Patient Education Patient Instructions Indication:Non-smoker Start:10-Jan-2019 Instruction Type:Provider Instructions for Treatment How to access health informa tion online Indication:Non-smoker Start:07-Dec-2017 Instruction Type:Patient Education How to access health informa tion online - Detail Indication:Non-smoker Start:07-Dec-2017 Instruction Type:Patient Education Patient Instructions Indication:Non-smoker Start:07-Dec-2017 Instruction Type:Provider Instructions for Treatment How to access health informa tion online Indication:Non-smoker Start:23-Feb-2017 Instruction Type:Patient Education How to access health informa tion online - Detail Indication:Non-smoker Start:23-Feb-2017 Instruction Type:Patient Education Patient Instructions Indication:Non-smoker Start:23-Feb-2017 Instruction Type:Provider Instructions for Treatment How to access health informa tion online Indication:Anxiety Start:14-Jan-2016 Instruction Type:Patient Education How to access health informa tion online - Detail Indication:Anxiety Start:14-Jan-2016 Instruction Type:Patient Education Patient Instructions Indication:Cystic acne Start:09-Aug-2015 Instruction Type:Provider Instructions for Treatment How to access health informa tion online Indication:Zinc deficiency Start:20-May-2015 Instruction Type:Patient Education How to access health informa tion online - Detail Indication:Zinc deficiency Start:20-May-2015 Instruction Type:Patient Education Patient Instructions Indication:Zinc deficiency Start:20-May-2015 Instruction Type:Provider Instructions for Treatment How to access health informa tion online Indication:Hyperglycemia Start:01-Feb-2015 Instruction Type:Patient Education How to access health informa tion online - Detail Indication:Hyperglycemia Start:01-Feb-2015 Instruction Type:Patient Education Patient Instructions Indication:Hyperglycemia Start:01-Feb-2015 Instruction Type:Provider Instructions for Treatment Patient Instructions Indication:FAMILY HISTORY OF DIABETES MELLITUS Start:18-Nov-2012 Instruction Type:Provider Instructions for Treatment Name Dates Details How to access health informa tion online Indication:Non-smoker Start:10-Jan-2019 Instruction Type:Patient Education How to access health informa tion online - Detail Indication:Non-smoker Start:10-Jan-2019 Instruction Type:Patient Education Patient Instructions Indication:Non-smoker Start:10-Jan-2019 Instruction Type:Provider Instructions for Treatment How to access health informa tion online Indication:Non-smoker Start:07-Dec-2017 Instruction Type:Patient Education How to access health informa tion online - Detail Indication:Non-smoker Start:07-Dec-2017 Instruction Type:Patient Education Patient Instructions Indication:Non-smoker Start:07-Dec-2017 Instruction Type:Provider Instructions for Treatment How to access health informa tion online Indication:Non-smoker Start:23-Feb-2017 Instruction Type:Patient Education How to access health informa tion online - Detail Indication:Non-smoker Start:23-Feb-2017 Instruction Type:Patient Education Patient Instructions Indication:Non-smoker Start:23-Feb-2017 Instruction Type:Provider Instructions for Treatment How to access health informa tion online Indication:Anxiety Start:14-Jan-2016 Instruction Type:Patient Education How to access health informa tion online - Detail Indication:Anxiety Start:14-Jan-2016 Instruction Type:Patient Education Patient Instructions Indication:Cystic acne Start:09-Aug-2015 Instruction Type:Provider Instructions for Treatment How to access health informa tion online Indication:Zinc deficiency Start:20-May-2015 Instruction Type:Patient Education How to access health informa tion online - Detail Indication:Zinc deficiency Start:20-May-2015 Instruction Type:Patient Education Patient Instructions Indication:Zinc deficiency Start:20-May-2015 Instruction Type:Provider Instructions for Treatment How to access health informa tion online Indication:Hyperglycemia Start:01-Feb-2015 Instruction Type:Patient Education How to access health informa tion online - Detail Indication:Hyperglycemia Start:01-Feb-2015 Instruction Type:Patient Education Patient Instructions Indication:Hyperglycemia Start:01-Feb-2015 Instruction Type:Provider Instructions for Treatment Patient Instructions Indication:FAMILY HISTORY OF DIABETES MELLITUS Start:18-Nov-2012 Instruction Type:Provider Instructions for Treatment Name Dates Details How to access health informa tion online Indication:Non-smoker Start:22-Jan-2019 Instruction Type:Patient Education How to access health informa tion online - Detail Indication:Non-smoker Start:22-Jan-2019 Instruction Type:Patient Education Patient Instructions Indication:Non-smoker Start:22-Jan-2019 Instruction Type:Provider Instructions for Treatment How to access health informa tion online Indication:Non-smoker Start:10-Jan-2019 Instruction Type:Patient Education How to access health informa tion online - Detail Indication:Non-smoker Start:10-Jan-2019 Instruction Type:Patient Education Patient Instructions Indication:Non-smoker Start:10-Jan-2019 Instruction Type:Provider Instructions for Treatment How to access health informa tion online Indication:Non-smoker Start:07-Dec-2017 Instruction Type:Patient Education How to access health informa tion online - Detail Indication:Non-smoker Start:07-Dec-2017 Instruction Type:Patient Education Patient Instructions Indication:Non-smoker Start:07-Dec-2017 Instruction Type:Provider Instructions for Treatment How to access health informa tion online Indication:Non-smoker Start:23-Feb-2017 Instruction Type:Patient Education How to access health informa tion online - Detail Indication:Non-smoker Start:23-Feb-2017 Instruction Type:Patient Education Patient Instructions Indication:Non-smoker Start:23-Feb-2017 Instruction Type:Provider Instructions for Treatment How to access health informa tion online Indication:Anxiety Start:14-Jan-2016 Instruction Type:Patient Education How to access health informa tion online - Detail Indication:Anxiety Start:14-Jan-2016 Instruction Type:Patient Education Patient Instructions Indication:Cystic acne Start:09-Aug-2015 Instruction Type:Provider Instructions for Treatment How to access health informa tion online Indication:Zinc deficiency Start:20-May-2015 Instruction Type:Patient Education How to access health informa tion online - Detail Indication:Zinc deficiency Start:20-May-2015 Instruction Type:Patient Education Patient Instructions Indication:Zinc deficiency Start:20-May-2015 Instruction Type:Provider Instructions for Treatment How to access health informa tion online Indication:Hyperglycemia Start:01-Feb-2015 Instruction Type:Patient Education How to access health informa tion online - Detail Indication:Hyperglycemia Start:01-Feb-2015 Instruction Type:Patient Education Patient Instructions Indication:Hyperglycemia Start:01-Feb-2015 Instruction Type:Provider Instructions for Treatment Patient Instructions Indication:FAMILY HISTORY OF DIABETES MELLITUS Start:18-Nov-2012 Instruction Type:Provider Instructions for Treatment Name Dates Details How to access health informa tion online - Detail Indication:BMI 22.0-22.9, adult Start:07-Jan-2020 Instruction Type:Patient Education How to access health informa tion online Indication:BMI 22.0-22.9, adult Start:07-Jan-2020 Instruction Type:Patient Education Patient Instructions Indication:BMI 22.0-22.9, adult Start:07-Jan-2020 Instruction Type:Provider Instructions for Treatment How to access health informa tion online Indication:Non-smoker Start:22-Jan-2019 Instruction Type:Patient Education How to access health informa tion online - Detail Indication:Non-smoker Start:22-Jan-2019 Instruction Type:Patient Education Patient Instructions Indication:Non-smoker Start:22-Jan-2019 Instruction Type:Provider Instructions for Treatment How to access health informa tion online Indication:Non-smoker Start:10-Jan-2019 Instruction Type:Patient Education How to access health informa tion online - Detail Indication:Non-smoker Start:10-Jan-2019 Instruction Type:Patient Education Patient Instructions Indication:Non-smoker Start:10-Jan-2019 Instruction Type:Provider Instructions for Treatment How to access health informa tion online Indication:Non-smoker Start:07-Dec-2017 Instruction Type:Patient Education How to access health informa tion online - Detail Indication:Non-smoker Start:07-Dec-2017 Instruction Type:Patient Education Patient Instructions Indication:Non-smoker Start:07-Dec-2017 Instruction Type:Provider Instructions for Treatment How to access health informa tion online Indication:Non-smoker Start:23-Feb-2017 Instruction Type:Patient Education How to access health informa tion online - Detail Indication:Non-smoker Start:23-Feb-2017 Instruction Type:Patient Education Patient Instructions Indication:Non-smoker Start:23-Feb-2017 Instruction Type:Provider Instructions for Treatment How to access health informa tion online Indication:Anxiety Start:14-Jan-2016 Instruction Type:Patient Education How to access health informa tion online - Detail Indication:Anxiety Start:14-Jan-2016 Instruction Type:Patient Education Patient Instructions Indication:Cystic acne Start:09-Aug-2015 Instruction Type:Provider Instructions for Treatment How to access health informa tion online Indication:Zinc deficiency Start:20-May-2015 Instruction Type:Patient Education How to access health informa tion online - Detail Indication:Zinc deficiency Start:20-May-2015 Instruction Type:Patient Education Patient Instructions Indication:Zinc deficiency Start:20-May-2015 Instruction Type:Provider Instructions for Treatment How to access health informa tion online Indication:Hyperglycemia Start:01-Feb-2015 Instruction Type:Patient Education How to access health informa tion online - Detail Indication:Hyperglycemia Start:01-Feb-2015 Instruction Type:Patient Education Patient Instructions Indication:Hyperglycemia Start:01-Feb-2015 Instruction Type:Provider Instructions for Treatment Patient Instructions Indication:FAMILY HISTORY OF DIABETES MELLITUS Start:18-Nov-2012 Instruction Type:Provider Instructions for Treatment Name Dates Details How to access health informa tion online Indication:BMI 21.0-21.9, adult Start:06-Jul-2020 Instruction Type:Patient Education How to access health informa tion online - Detail Indication:BMI 21.0-21.9, adult Start:06-Jul-2020 Instruction Type:Patient Education Patient Instructions Indication:BMI 21.0-21.9, adult Start:06-Jul-2020 Instruction Type:Provider Instructions for Treatment How to access health informa tion online - Detail Indication:BMI 22.0-22.9, adult Start:07-Jan-2020 Instruction Type:Patient Education How to access health informa tion online Indication:BMI 22.0-22.9, adult Start:07-Jan-2020 Instruction Type:Patient Education Patient Instructions Indication:BMI 22.0-22.9, adult Start:07-Jan-2020 Instruction Type:Provider Instructions for Treatment How to access health informa tion online Indication:Non-smoker Start:22-Jan-2019 Instruction Type:Patient Education How to access health informa tion online - Detail Indication:Non-smoker Start:22-Jan-2019 Instruction Type:Patient Education Patient Instructions Indication:Non-smoker Start:22-Jan-2019 Instruction Type:Provider Instructions for Treatment How to access health informa tion online Indication:Non-smoker Start:10-Jan-2019 Instruction Type:Patient Education How to access health informa tion online - Detail Indication:Non-smoker Start:10-Jan-2019 Instruction Type:Patient Education Patient Instructions Indication:Non-smoker Start:10-Jan-2019 Instruction Type:Provider Instructions for Treatment How to access health informa tion online Indication:Non-smoker Start:07-Dec-2017 Instruction Type:Patient Education How to access health informa tion online - Detail Indication:Non-smoker Start:07-Dec-2017 Instruction Type:Patient Education Patient Instructions Indication:Non-smoker Start:07-Dec-2017 Instruction Type:Provider Instructions for Treatment How to access health informa tion online Indication:Non-smoker Start:23-Feb-2017 Instruction Type:Patient Education How to access health informa tion online - Detail Indication:Non-smoker Start:23-Feb-2017 Instruction Type:Patient Education Patient Instructions Indication:Non-smoker Start:23-Feb-2017 Instruction Type:Provider Instructions for Treatment How to access health informa tion online Indication:Anxiety Start:14-Jan-2016 Instruction Type:Patient Education How to access health informa tion online - Detail Indication:Anxiety Start:14-Jan-2016 Instruction Type:Patient Education Patient Instructions Indication:Cystic acne Start:09-Aug-2015 Instruction Type:Provider Instructions for Treatment How to access health informa tion online Indication:Zinc deficiency Start:20-May-2015 Instruction Type:Patient Education How to access health informa tion online - Detail Indication:Zinc deficiency Start:20-May-2015 Instruction Type:Patient Education Patient Instructions Indication:Zinc deficiency Start:20-May-2015 Instruction Type:Provider Instructions for Treatment How to access health informa tion online Indication:Hyperglycemia Start:01-Feb-2015 Instruction Type:Patient Education How to access health informa tion online - Detail Indication:Hyperglycemia Start:01-Feb-2015 Instruction Type:Patient Education Patient Instructions Indication:Hyperglycemia Start:01-Feb-2015 Instruction Type:Provider Instructions for Treatment Patient Instructions Indication:FAMILY HISTORY OF DIABETES MELLITUS Start:18-Nov-2012 Instruction Type:Provider Instructions for Treatment Name Dates Details How to access health informa tion online Indication:BMI 21.0-21.9, adult Start:06-Jul-2020 Instruction Type:Patient Education How to access health informa tion online - Detail Indication:BMI 21.0-21.9, adult Start:06-Jul-2020 Instruction Type:Patient Education Patient Instructions Indication:BMI 21.0-21.9, adult Start:06-Jul-2020 Instruction Type:Provider Instructions for Treatment How to access health informa tion online - Detail Indication:BMI 22.0-22.9, adult Start:07-Jan-2020 Instruction Type:Patient Education How to access health informa tion online Indication:BMI 22.0-22.9, adult Start:07-Jan-2020 Instruction Type:Patient Education Patient Instructions Indication:BMI 22.0-22.9, adult Start:07-Jan-2020 Instruction Type:Provider Instructions for Treatment How to access health informa tion online Indication:Non-smoker Start:22-Jan-2019 Instruction Type:Patient Education How to access health informa tion online - Detail Indication:Non-smoker Start:22-Jan-2019 Instruction Type:Patient Education Patient Instructions Indication:Non-smoker Start:22-Jan-2019 Instruction Type:Provider Instructions for Treatment How to access health informa tion online Indication:Non-smoker Start:10-Jan-2019 Instruction Type:Patient Education How to access health informa tion online - Detail Indication:Non-smoker Start:10-Jan-2019 Instruction Type:Patient Education Patient Instructions Indication:Non-smoker Start:10-Jan-2019 Instruction Type:Provider Instructions for Treatment How to access health informa tion online Indication:Non-smoker Start:07-Dec-2017 Instruction Type:Patient Education How to access health informa tion online - Detail Indication:Non-smoker Start:07-Dec-2017 Instruction Type:Patient Education Patient Instructions Indication:Non-smoker Start:07-Dec-2017 Instruction Type:Provider Instructions for Treatment How to access health informa tion online Indication:Non-smoker Start:23-Feb-2017 Instruction Type:Patient Education How to access health informa tion online - Detail Indication:Non-smoker Start:23-Feb-2017 Instruction Type:Patient Education Patient Instructions Indication:Non-smoker Start:23-Feb-2017 Instruction Type:Provider Instructions for Treatment How to access health informa tion online Indication:Anxiety Start:14-Jan-2016 Instruction Type:Patient Education How to access health informa tion online - Detail Indication:Anxiety Start:14-Jan-2016 Instruction Type:Patient Education Patient Instructions Indication:Cystic acne Start:09-Aug-2015 Instruction Type:Provider Instructions for Treatment How to access health informa tion online Indication:Zinc deficiency Start:20-May-2015 Instruction Type:Patient Education How to access health informa tion online - Detail Indication:Zinc deficiency Start:20-May-2015 Instruction Type:Patient Education Patient Instructions Indication:Zinc deficiency Start:20-May-2015 Instruction Type:Provider Instructions for Treatment How to access health informa tion online Indication:Hyperglycemia Start:01-Feb-2015 Instruction Type:Patient Education How to access health informa tion online - Detail Indication:Hyperglycemia Start:01-Feb-2015 Instruction Type:Patient Education Patient Instructions Indication:Hyperglycemia Start:01-Feb-2015 Instruction Type:Provider Instructions for Treatment Patient Instructions Indication:FAMILY HISTORY OF DIABETES MELLITUS Start:18-Nov-2012 Instruction Type:Provider Instructions for Treatment Name Dates Details How to access health informa tion online Indication:SARS (severe acute respiratory syndrome) Start:12-Jul-2020 Instruction Type:Patient Education How to access health informa tion online - Detail Indication:SARS (severe acute respiratory syndrome) Start:12-Jul-2020 Instruction Type:Patient Education Patient Instructions Indication:SARS (severe acute respiratory syndrome) Start:12-Jul-2020 Instruction Type:Provider Instructions for Treatment How to access health informa tion online Indication:BMI 21.0-21.9, adult Start:06-Jul-2020 Instruction Type:Patient Education How to access health informa tion online - Detail Indication:BMI 21.0-21.9, adult Start:06-Jul-2020 Instruction Type:Patient Education Patient Instructions Indication:BMI 21.0-21.9, adult Start:06-Jul-2020 Instruction Type:Provider Instructions for Treatment How to access health informa tion online - Detail Indication:BMI 22.0-22.9, adult Start:07-Jan-2020 Instruction Type:Patient Education How to access health informa tion online Indication:BMI 22.0-22.9, adult Start:07-Jan-2020 Instruction Type:Patient Education Patient Instructions Indication:BMI 22.0-22.9, adult Start:07-Jan-2020 Instruction Type:Provider Instructions for Treatment How to access health informa tion online Indication:Non-smoker Start:22-Jan-2019 Instruction Type:Patient Education How to access health informa tion online - Detail Indication:Non-smoker Start:22-Jan-2019 Instruction Type:Patient Education Patient Instructions Indication:Non-smoker Start:22-Jan-2019 Instruction Type:Provider Instructions for Treatment How to access health informa tion online Indication:Non-smoker Start:10-Jan-2019 Instruction Type:Patient Education How to access health informa tion online - Detail Indication:Non-smoker Start:10-Jan-2019 Instruction Type:Patient Education Patient Instructions Indication:Non-smoker Start:10-Jan-2019 Instruction Type:Provider Instructions for Treatment How to access health informa tion online Indication:Non-smoker Start:07-Dec-2017 Instruction Type:Patient Education How to access health informa tion online - Detail Indication:Non-smoker Start:07-Dec-2017 Instruction Type:Patient Education Patient Instructions Indication:Non-smoker Start:07-Dec-2017 Instruction Type:Provider Instructions for Treatment How to access health informa tion online Indication:Non-smoker Start:23-Feb-2017 Instruction Type:Patient Education How to access health informa tion online - Detail Indication:Non-smoker Start:23-Feb-2017 Instruction Type:Patient Education Patient Instructions Indication:Non-smoker Start:23-Feb-2017 Instruction Type:Provider Instructions for Treatment How to access health informa tion online Indication:Anxiety Start:14-Jan-2016 Instruction Type:Patient Education How to access health informa tion online - Detail Indication:Anxiety Start:14-Jan-2016 Instruction Type:Patient Education Patient Instructions Indication:Cystic acne Start:09-Aug-2015 Instruction Type:Provider Instructions for Treatment How to access health informa tion online Indication:Zinc deficiency Start:20-May-2015 Instruction Type:Patient Education How to access health informa tion online - Detail Indication:Zinc deficiency Start:20-May-2015 Instruction Type:Patient Education Patient Instructions Indication:Zinc deficiency Start:20-May-2015 Instruction Type:Provider Instructions for Treatment How to access health informa tion online Indication:Hyperglycemia Start:01-Feb-2015 Instruction Type:Patient Education How to access health informa tion online - Detail Indication:Hyperglycemia Start:01-Feb-2015 Instruction Type:Patient Education Patient Instructions Indication:Hyperglycemia Start:01-Feb-2015 Instruction Type:Provider Instructions for Treatment Patient Instructions Indication:FAMILY HISTORY OF DIABETES MELLITUS Start:18-Nov-2012 Instruction Type:Provider Instructions for Treatment Name Dates Details How to access health informa tion online Indication:SARS (severe acute respiratory syndrome) Start:12-Jul-2020 Instruction Type:Patient Education How to access health informa tion online - Detail Indication:SARS (severe acute respiratory syndrome) Start:12-Jul-2020 Instruction Type:Patient Education Patient Instructions Indication:SARS (severe acute respiratory syndrome) Start:12-Jul-2020 Instruction Type:Provider Instructions for Treatment How to access health informa tion online Indication:BMI 21.0-21.9, adult Start:06-Jul-2020 Instruction Type:Patient Education How to access health informa tion online - Detail Indication:BMI 21.0-21.9, adult Start:06-Jul-2020 Instruction Type:Patient Education Patient Instructions Indication:BMI 21.0-21.9, adult Start:06-Jul-2020 Instruction Type:Provider Instructions for Treatment How to access health informa tion online - Detail Indication:BMI 22.0-22.9, adult Start:07-Jan-2020 Instruction Type:Patient Education How to access health informa tion online Indication:BMI 22.0-22.9, adult Start:07-Jan-2020 Instruction Type:Patient Education Patient Instructions Indication:BMI 22.0-22.9, adult Start:07-Jan-2020 Instruction Type:Provider Instructions for Treatment How to access health informa tion online Indication:Non-smoker Start:22-Jan-2019 Instruction Type:Patient Education How to access health informa tion online - Detail Indication:Non-smoker Start:22-Jan-2019 Instruction Type:Patient Education Patient Instructions Indication:Non-smoker Start:22-Jan-2019 Instruction Type:Provider Instructions for Treatment How to access health informa tion online Indication:Non-smoker Start:10-Jan-2019 Instruction Type:Patient Education How to access health informa tion online - Detail Indication:Non-smoker Start:10-Jan-2019 Instruction Type:Patient Education Patient Instructions Indication:Non-smoker Start:10-Jan-2019 Instruction Type:Provider Instructions for Treatment How to access health informa tion online Indication:Non-smoker Start:07-Dec-2017 Instruction Type:Patient Education How to access health informa tion online - Detail Indication:Non-smoker Start:07-Dec-2017 Instruction Type:Patient Education Patient Instructions Indication:Non-smoker Start:07-Dec-2017 Instruction Type:Provider Instructions for Treatment How to access health informa tion online Indication:Non-smoker Start:23-Feb-2017 Instruction Type:Patient Education How to access health informa tion online - Detail Indication:Non-smoker Start:23-Feb-2017 Instruction Type:Patient Education Patient Instructions Indication:Non-smoker Start:23-Feb-2017 Instruction Type:Provider Instructions for Treatment How to access health informa tion online Indication:Anxiety Start:14-Jan-2016 Instruction Type:Patient Education How to access health informa tion online - Detail Indication:Anxiety Start:14-Jan-2016 Instruction Type:Patient Education Patient Instructions Indication:Cystic acne Start:09-Aug-2015 Instruction Type:Provider Instructions for Treatment How to access health informa tion online Indication:Zinc deficiency Start:20-May-2015 Instruction Type:Patient Education How to access health informa tion online - Detail Indication:Zinc deficiency Start:20-May-2015 Instruction Type:Patient Education Patient Instructions Indication:Zinc deficiency Start:20-May-2015 Instruction Type:Provider Instructions for Treatment How to access health informa tion online Indication:Hyperglycemia Start:01-Feb-2015 Instruction Type:Patient Education How to access health informa tion online - Detail Indication:Hyperglycemia Start:01-Feb-2015 Instruction Type:Patient Education Patient Instructions Indication:Hyperglycemia Start:01-Feb-2015 Instruction Type:Provider Instructions for Treatment Patient Instructions Indication:FAMILY HISTORY OF DIABETES MELLITUS Start:18-Nov-2012 Instruction Type:Provider Instructions for Treatment Name Dates Details Non-smoker : How to access h ealth information online Indication:Non-smoker Non-smoker : How to access h ealth information online - Detail Indication:Non-smoker Non-smoker : Patient Instruc tions Indication:Non-smoker Anxiety : How to access heal th information online Indication:Anxiety Anxiety : How to access heal th information online - Detail Indication:Anxiety Cystic acne : Patient Instru ctions Indication:Cystic acne Zinc deficiency : How to acc ess health information online Indication:Zinc deficiency Zinc deficiency : How to acc ess health information online - Detail Indication:Zinc deficiency Zinc deficiency : Patient In structions Indication:Zinc deficiency Hyperglycemia : How to acces s health information online Indication:Hyperglycemia Hyperglycemia : How to acces s health information online - Detail Indication:Hyperglycemia Hyperglycemia : Patient Inst ructions Indication:Hyperglycemia FAMILY HISTORY OF DIABETES M GOODOUMAR : Patient Instructions Indication:FAMILY HISTORY OF DIABETES MELLITUS Summary Purpose Advance Directives No Advanced Directives Records FoundNo Advanced Directives Records FoundNo Advanced Directives Records FoundNo Advanced Directives Records FoundNo Advanced Directives Records Found Additional Source Comments INFORMATION SOURCE (unrecogn ized section and content) DATE CREATED AUTHOR AUTHOR'S ORGANIZ ATION 03/20/2020 [facility] DATE CREATED AUTHOR AUTHOR'S ORGANIZ ATION 12/26/2021 [employer] DATE CREATED AUTHOR AUTHOR'S ORGANIZ ATION 07/15/2022 [facility] DATE CREATED AUTHOR AUTHOR'S ORGANIZ ATION 06/01/2023 [facility] Source Comments (unrecognize d section and content) In the event this informatio n is protected by the Federal Confidentiality of Alcohol and Drug Abuse Patient Records regulations: The Federal rules restrict any use of the information to criminally investigate or prosecute any alcohol or drug abuse patient.[facility] the event this information is protected by the Federal Confidentiality of Alcohol and Drug Abuse Patient Records regulations: The Federal rules restrict any use of the information to criminally investigate or prosecute any alcohol or drug abuse patient.[facility] the event this information is protected by the Federal Confidentiality of Alcohol and Drug Abuse Patient Records regulations: The Federal rules restrict any use of the information to criminally investigate or prosecute any alcohol or drug abuse patient.[facility] Reason for Visit (unrecogniz ed section and content) Reason Comments Results Reason Comments Cough Congestion x 6 weeks Care Teams (unrecognized sec tion and content) 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 This clinical summary was aggregated from multiple sources. Caution should be exercised in using it in the provision of clinical care. This summary normalizes information from multiple sources, and as a consequence, information in this document may materially change the coding, format and clinical context of patient data. In addition, data may be omitted in some cases. CLINICAL DECISIONS SHOULD BE BASED ON THE PRIMARY CLINICAL RECORDS. [email or web address] [facility]. provides no warranty or guarantee of the accuracy or completeness of information in this document.
== END | disposition home or self-care (01) ==
LOC: US 10:22
PROVIDERS: PCP Internal Medicine; Referring Provider Obstetrics & Gynecology; Visit Provider Obstetrics & Gynecology
DX: N91.2 Amenorrhea, unspecified (principal)
CPT/HCPCS: 76801

== ENCOUNTER → 2023-09-13 | Outpatient (CLI) | payer OTHER, SELFPAY ==
[2023-09-13 14:42] LABS: Absolute Lymphocyte Count 1.31 X10^3/uL (0.83-4.51); Absolute Neutrophil Count 4.5 X10^3/uL (2.0-7.7); Basophil# 0.02 X10^3/uL; Basophil% 0.3 % (0-1); Eosinophil# 0.05 X10^3/uL; Eosinophils% 0.8 % (0-5); Hematocrit 34.7 % (37-47); Hemoglobin 11.9 g/dL (12.0-15.0); Lymphocyte # 1.31 X10^3/ul (0.83-4.51); Lymphocyte % 20.7 % (19-41); Mean Corp Hgb Conc 34.3 g/dL (32-36); Mean Corpuscular Hgb 32.8 pg (27.0-32.0); Mean Corpuscular Volume 95.6 fL (81-99); Mean Platelet Vol. 8.9 fl (6.2-12.0); Monocyte% 6.3 % (0-10); NRBC Flagged by Analyzer 0 % (0-5); Neutrophil # 4.54 X10^3/uL (2.7-7.7); Neutrophil % 71.6 % (47-70); Platelet Count 218 K/mm3 (150-450); RBC Distribution Width CV 11.9 % (11.6-14.6); RBC Distribution Width SD 41.6 fl (35.1-43.9); Red Blood Count 3.63 M/mm3 (4.2-5.4); White Blood Count 6.3 K/mm3 (4.4-11.0)
[2023-09-13 15:12] LABS: Free T3 2.4 pg/mL (2.18-3.98); T4 Free Direct 0.95 ng/dL (0.76-1.46); Thyroid Stim Hormone (TSH) 1.22 uIU/mL (0.358-3.74)
[2023-09-13 15:17] LABS: NATERA MAILED SPECIMEN
[2023-09-13 15:43] LABS: HIV - WCH Non-Reactive (Nonreactive); Hepatitis B Surface Antigen Non-Reactive (Nonreactive); Hepatitis C Antibody Non-Reactive (Nonreactive); Rubella IgG Reactive (Nonreactive); Syphilis Antibodies Non-reactive
[2023-09-17 21:07] LABS: HPV APTIMA, High Risk Negative (Negative)
[2023-09-18 06:09] LABS: Chlamydia By Nucleic Acid AMP Negative (Negative); Gonococcus By Nucleic Acid AMP Negative (Negative)
== END | disposition home or self-care (01) ==
PROVIDERS: PCP Internal Medicine; Referring Provider Advanced Practice Midwife; Visit Provider Advanced Practice Midwife
DX: O99.281 Endocrine, nutritional and metabolic diseases complicating pregnancy, first trimester (principal); E03.9 Hypothyroidism, unspecified; Z3A.00 Weeks of gestation of pregnancy not specified
CPT/HCPCS: 36415; 84439; 84443; 84481; 85025; 86703; 86762; 86780; 86803; 86850; 86900; 86901; 87086; 87340; 87491; 87591; 87624; 88175; G0145

== ENCOUNTER → 2023-10-03 | Outpatient (CLI) | payer OTHER, SELFPAY ==
--- NOTE | 2023-10-03 13:32 | US_ITS ---
STUDY: FIRST TRIMESTER OBSTETRICAL ULTRASOUND REASON FOR EXAM: Female, 33 years old spotting in early -- LIGHT SPOTTING X 5 DAYS LMP: July 01, 2023. TECHNIQUE: Transvaginal TECHNICAL QUALITY: Adequate. PRIOR ULTRASOUND: Comparison is made with prior study dated September 04, 2023. FINDINGS: There is visualization of a single gestational sac in a normal intrauterine position. There is no demonstrated yolk sac. The placenta is non-visualized. There is visualization of a live embryo. The crown-rump length (CRL) measures 6.9 cm, indicating an estimated gestational age (EGA) of 13 weeks, 1 days. There is demonstrated cardiac activity with a heart rate of 156 bpm. The estimated gestation age (EGA) by LMP is 13 weeks, 3 days. The estimated date of delivery (PRASHANTH) by LMP is April 06, 2024. The estimated gestation age (EGA) by US is 13 weeks, 1 days. The estimated date of delivery (PRASHANTH) by US is April 08, 2024. The uterus measures 10.9 cm x 9.2 cm x 7.3 cm. There is no demonstrated uterine fibroid. The cervix is closed. The right ovary measures 3.4 cm x 2.6 cm x 2 cm. There is no right ovarian cyst. There is no visualized right adnexal mass or complex lesion. The left ovary measures 2.7 cm x 2.6 cm x 1.9 cm. There is no left ovarian cyst. There is no visualized left adnexal mass or complex lesion. There is no fluid in the cul de sac. US/Init OB < 14Wks US IMPRESSION: Single live intrauterine gestation with a mean gestational age of 13 weeks and 1 day. Electronically Signed: Aldo Markham MD at 15:01 EST ,
== END | disposition home or self-care (01) ==
LOC: US 13:32
PROVIDERS: PCP Internal Medicine; Referring Provider Obstetrics & Gynecology; Visit Provider Obstetrics & Gynecology
DX: O20.9 Hemorrhage in early pregnancy, unspecified (principal); Z3A.00 Weeks of gestation of pregnancy not specified
CPT/HCPCS: 76801

== ENCOUNTER → 2024-02-16 | Outpatient (CLI) | payer OTHER, SELFPAY ==
[2024-02-16 12:03] LABS: Absolute Lymphocyte Count 1.51 X10^3/uL (0.83-4.51); Absolute Neutrophil Count 5.9 X10^3/uL (2.0-7.7); Basophil# 0.02 X10^3/uL; Basophil% 0.2 % (0-1); Eosinophil# 0.08 X10^3/uL; Hematocrit 29.4 % (37-47); Hemoglobin 9.4 g/dL (12.0-15.0); Lymphocyte # 1.51 X10^3/ul (0.83-4.51); Lymphocyte % 18.3 % (19-41); Mean Platelet Vol. 8.6 fl (6.2-12.0); Monocyte% 8.5 % (0-10); NRBC Flagged by Analyzer 0 % (0-5); Neutrophil % 71.3 % (47-70); Platelet Count 284 K/mm3 (150-450); RBC Distribution Width CV 12.5 % (11.6-14.6); RBC Distribution Width SD 44.1 fl (35.1-43.9); Red Blood Count 3.03 M/mm3 (4.2-5.4); White Blood Count 8.3 K/mm3 (4.4-11.0)
[2024-02-16 12:27] LABS: Glucose Challenge Gest 1H 50g 107 mg/dL (70-140); T4 Free Direct 0.71 ng/dL (0.76-1.46); Thyroid Stim Hormone (TSH) 2.13 uIU/mL (0.358-3.74)
[2024-02-18 09:15] LABS: HIV - WCH Non-Reactive (Nonreactive); Syphilis Antibodies Non-reactive
== END | disposition home or self-care (01) ==
LOC: LAB 11:30
PROVIDERS: PCP Internal Medicine; Referring Provider Advanced Practice Midwife; Visit Provider Advanced Practice Midwife
DX: O99.280 Endocrine, nutritional and metabolic diseases complicating pregnancy, unspecified trimester (principal); E03.9 Hypothyroidism, unspecified; Z13.1 Encounter for screening for diabetes mellitus; Z3A.00 Weeks of gestation of pregnancy not specified
CPT/HCPCS: 36415; 82950; 84439; 84443; 85025; 86703; 86780

== ENCOUNTER → 2024-02-25 | Outpatient (CLI) | payer OTHER, SELFPAY ==
[2024-02-25 11:37] LABS: Absolute Neutrophil Count 5.7 X10^3/uL (2.0-7.7); Basophil# 0.02 X10^3/uL; Basophil% 0.2 % (0-1); Eosinophil# 0.09 X10^3/uL; Eosinophils% 1.1 % (0-5); Hematocrit 29.6 % (37-47); Hemoglobin 9.6 g/dL (12.0-15.0); Lymphocyte % 19.5 % (19-41); Mean Corp Hgb Conc 32.4 g/dL (32-36); Mean Corpuscular Volume 95.5 fL (81-99); Mean Platelet Vol. 8.6 fl (6.2-12.0); Monocyte# 0.79 X10^3/uL; Monocyte% 9.6 % (0-10); NRBC Flagged by Analyzer 0 % (0-5); Neutrophil # 5.65 X10^3/uL (2.7-7.7); Platelet Count 311 K/mm3 (150-450); RBC Distribution Width CV 12.8 % (11.6-14.6); RBC Distribution Width SD 44.8 fl (35.1-43.9); White Blood Count 8.2 K/mm3 (4.4-11.0)
[2024-02-25 12:01] LABS: ALB/GLOB Ratio 0.7 RATIO (0.9-2.4); AST(SGOT) 19 U/L (15-37); Alanine Aminotransfer ALT/SGPT 14 U/L (13-56); Albumin, Serum 2.7 g/dL (3.2-5.0); Alkaline Phosphatase 91 U/L (45-117); Anion Gap 6 (5-15); BUN 8 mg/dL (7-18); BUN/Creat Ratio 14.7 RATIO (10-20); Calcium,Total 9.3 mg/dL (8.5-10.1); Chloride 107 mmol/L (98-107); Creatinine, Serum 0.54 mg/dL (0.55-1.02); EST Glomerular Filtration Rate 135 mL/min (>60); Est Glom Filt Rate - Afr Amer 163 mL/min (>60); Globulin 4.1 g/dL (2.2-4.2); Glucose 85 mg/dL (74-106); Potassium 3.9 mmol/L (3.5-5.1); Protein, Total 6.8 g/dL (6.4-8.2); Sodium Level 137 mmol/L (136-145)
[2024-02-25 12:19] LABS: Creatinine, Urine (random) < 13.00 mg/dL (NO RANGE EST.); Protein, Urine (Random) < 6.0 mg/dL (<11.9)
== END | disposition home or self-care (01) ==
LOC: LAB 11:07
PROVIDERS: PCP Internal Medicine; Referring Provider Nurse Practitioner Women's Health; Visit Provider Nurse Practitioner Women's Health
DX: O36.8130 Decreased fetal movements, third trimester, not applicable or unspecified (principal); R80.9 Proteinuria, unspecified; Z3A.00 Weeks of gestation of pregnancy not specified
CPT/HCPCS: 36415; 80053; 82570; 84156; 85025

== ENCOUNTER 2024-02-26 16:09 | Inpatient (IN) | payer OTHER, SELFPAY ==
[2024-02-25] VITALS (10 sets, daily range): BP systolic 119–144; BP diastolic 65–83; PULSE 70–190; RESP 16; TEMP 36.6–36.8; O2SAT 82–100; BMI 26.6
--- NOTE | 2024-02-25 11:23 | US_ITS ---
INDICATION: decrease movement EXAMINATION: Ultrasound US Biophysical Profile W/O Nonst TECHNIQUE: Transabdominal pelvic ultrasound was performed. COMPARISON: Prior study dated: 09/04/2023 LMP: 07/03/2023 Beta-hCG: Unknown. Provided EGA: None. FINDINGS: INTRAUTERINE GESTATION(s): Single. HEART MOTION is 150 bpm. AMNIOTIC FLUID INDEX (GARDENIA): 15.3 cm. MVP 7.5 cm. BIOPHYSICAL PROFILE (BPP): 8/8 -- Breathin/2. -- Movement: 2/2. -- Tone: 2/2. --GARDENAI: 2/2. PRESENTATION: Cephalic PLACENTA: Anterior and fundal. There is no placenta previa or abruption. CERVIX: The cervix is closed. MATERNAL OVARIES: No adnexal masses. FREE FLUID: None. US/Biophysical Prof W/O Non Stres IMPRESSION: Normal biophysical profile with score of 8/8. Electronically Signed: Kayden Linn MD at 13:08 EDT ,
[2024-02-25] MEDS: Lactated Ringers 500 ML 999 ML IV (15:00)
[2024-02-25] MEDS: LACTATED RINGERS 500 ML 999 ML IV (15:32)
[2024-02-25] MEDS: Betamethasone/Betamethasone 30 MG/5 ML Vial 12 MG IM (15:37)
--- NOTE | 2024-02-25 17:07 | OB.TRI.NOTE ---
HPI - General HPI Narrative LÓPEZ WILLIAMSON, is a 34 F who presents with non reactive NST, upon further monitoring she is reacti vebut had an isolate late decel. 04/03 bpp overall reassuring testing. she denies any vb or lof admits good fm irregualr ctx. Maternal Data Information PRASHANTH Calculator Estimated Delivery Date Method Current WG Current Estimate 04/06/24 Ultrasound #1 34w 2d Other Estimates 04/15/24 LMP (Certain) 33w 0d PFSH PFSH Medical History Hx of infertility Varicose vein of leg H/O delivery, currently Unicornate uterus affecting History of infertility History of blood clots Anxiety Home Medications ?Medication ?Instructions ?Recorded ?Last Taken ?Type sertraline 50 mg tablet 50 mg PO DAILY depression 12/03/16 02/24/24 21:00 History 50 mg levothyroxine 25 mcg tablet 25 mcg PO DAILY hypothyroidism 09/05/19 02/25/24 07:00 History (Synthroid) 25 mcg vitamin no.49-iron 1 tab PO DAILY #30 tabs 01/07/20 02/24/24 21:00 Rx fum-folic acid 6.75 mg iron-200 1 TAB mcg tablet (Mini ) aspirin 81 mg chewable tablet 1 tab PO DAILY 02/25/24 Unknown History (Aspirin Childrens) Allergy/AdvReac Type Severity Reaction Status Date / Time amoxicillin Allergy Unknown Verified 02/25/24 11:37 nut - unspecified Allergy Swelling Verified 02/25/24 11:37 Family History Father Hypertension Grandmother Diabetes Grandfather Heart disease Surgical History H/O breast biopsy H/O laparoscopy History of wisdom tooth extraction, class II edentulism Social History adopted: No household members: family housing: house number of children: 2 current occupational status: employed 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 current occupational exposures/hazards: No pets and animals: Yes pets and animals: dog(s) history of recent travel: No sexually active: Yes Smoking Status: Never smoker second hand exposure: No alcohol intake: never substance use type: does not use well-balanced diet: daily or most days caffeine: No eating out: rarely or never during the past year weight has: remained stable what type of physical activity do you participate in: walking frequency: 3-4 times per week duration: 15-30 minutes/day gilmar/sabianist: Caodaism seatbelt use: always do you feel safe at home: Yes additional social history: Al- [employer] 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 Date Name GA/Weeks Outcome Route Bth Weight Gen Labor Lgth Anesthesia Del Locatn Provider FOB Unknown 2016 [place] 36 live - full term 4lbs 10oz Female 1 hour none [facility] Seals Al Unknown 03/2019 miscarriage 8 spontaneous 03/26/20 [place] 37 live - full term Male precipitous delivery none [facility] KG Delivery Date: Last Updated by: Kati Sanon elevated AFP; sacral dimple- negative US Delivery Date: Last Updated by: Luzma Barrera frozen embryo transfer Visit Details Expected Delivery Route/Plan Labor Preferences- CB/BF classes: No labor support person: Al labor intervention preferences: tub pain management options preferred: limited. tub cut cord/dad catch: yes : yes PP control planned: discussed discussed possible routes of delivery and associated risks: [] special requests: [] Plans Covid status: [] Flu vaccine: [] Tdap vaccine: declines Rhogam: na LARC form signed: yes Problem list reviewed and updated with the most current plan of care details and appropriate orders placed. Relevant counseling for the gestational age provided. Continue routine care and follow up unless otherwise noted in visit notes/problem list details OB Flowsheet Initial Weight: Not Recorded Date <del>?</del> EGA Weight BP Urine Prot <del>?</del> Glucose FHR FuHt Pres Dilation <del>?</del> Effaced St Visit Note 09/13/23 <del>?</del> 10w 4d 122 lb 8 oz 125/80 <del>?</del> 180 <del>?</del> kw-CRL cons with LMP and not [facility] US that was abdominal US. accepts NIPT. Hx blood clot start ASA 81 mg. discussed with SM. 10/09/23 <del>?</del> 14w 2d 122 lb 6 oz 96/66 Negative <del>?</del> Negative 160 <del>?</del> KW- has had light brown spotting x 2 weeks but formal US is reassuring. has MFM 11/04. no cramping. overall feeling well. AFP discussed and declined at this time. 11/12/23 <del>?</del> 19w 1d 128 lb 4 oz 98/64 Negative <del>?</del> Negative 156 <del>?</del> LC- no vb/cramping. LC- no vb/cramping. normal anatomy. 12/11/23 <del>?</del> 23w 2d 132 lb 113/74 Trace <del>?</del> Negative 150 23 <del>?</del> KW- no vb/lof/ctx. good fm. 28 week labs discussed. thyroid labs ordered. has 2-3cm soft, nontender lump in right axilla. US ordered. 01/15/24 <del>?</del> 28w 2d 140 lb 4 oz 108/64 Negative <del>?</del> Negative 153 28 <del>?</del> -NO VB, LOF. Good Fm. Larc. Declines tdap. Plans 28 wk labs end of this week 01/31/24 <del>?</del> 30w 4d 146 lb 8 oz 126/83 Negative <del>?</del> Negative 145 30 <del>?</del> KW- no vb/lof/ctx. good fm. Unable to tolerate glucose. started doing 4x daily testing and most in range. Recommended fresh test. or at least doing other labs. 02/12/24 <del>?</del> 32w 2d 146 lb 8 oz 125/74 Negative <del>?</del> Negative 133 32 Cephalic <del>?</del> JV- no lof, vaginal bleeding, or dec fm. vtx on bedside scan 02/25/24 <del>?</del> 34w 1d 151 lb 6 oz 127/80 Trace <del>?</del> Negative 140 34 <del>?</del> MH-No VB, LOF. Dec FM since last pm. Unreactive NST-to WP to get BPP. Denies headache/vision changes but is noting more edema hands, legs. Pre E labs 02/25/24 <del>?</del> 34w 1d 150 lb 9.211 oz 131/68 133/77 119/70 144/83 137/65 134/75 128/72 132/71 <del>?</del> 140 <del>?</del> ROS Constitutional Constitutional: Reports systems reviewed and no addt'l complaints, except as documented and as per HPI ENT HEENT: Reports systems reviewed and no addt'l complaints, except as documented Cardiovascular Cardiovascular: Reports systems reviewed and no addt'l complaints, except as documented Respiratory/Chest Respiratory/Chest: Reports systems reviewed and no addt'l complaints, except as documented Gastrointestinal Gastrointestinal: Reports as per HPI Genitourinary Genitourinary: Reports as per HPI Musculoskeletal Musculoskeletal: Reports systems reviewed and no addt'l complaints, except as documented Integumentary Integumentary: Reports systems reviewed and no addt'l complaints, except as documented Neurologic Neurologic: Reports systems reviewed and no addt'l complaints, except as documented Physical Exam Const alert, oriented x3 and no apparent distress HEENT Head and Scalp: normocephalic and atraumatic Neck full ROM and no lymphadenopathy Chest inspection of chest normal Resp normal respiratory effort GI GI Narrative: gravid, abdomen nontender, AGA Manual OB Exam: dilated, effaced and station NST FHR Rate Baby A Baseline: 140 Variability:: Moderate Accelerations:: 15 x 15 Decelerations:: Late (intermittent occasional, overall reassuring) NST Reactive:: Yes FHR Category:: Category I Uterine Activity:: irregular Assessment & Plan (1) Proteinuria: QUALIFIERS: Proteinuria type: unspecified Qualified Code(s): R80.9 - Proteinuria, unspecified COMMENT: Pre E labs-nl (2) Decreased movement: QUALIFIERS: Fetus number: single or unspecified fetus Trimester: third trimester Qualified Code(s): O36.8130 - Decreased movements, third trimester, not applicable or unspecified COMMENT: nonreassuring NST. To WP for BPP (3) Anemia affecting : QUALIFIERS: Trimester: third trimester Qualified Code(s): O99.013 - Anemia complicating , third trimester COMMENT: Daily FE (4) Unicornate uterus affecting : QUALIFIERS: Trimester: third trimester Qualified Code(s): O34.03 - Maternal care for unspecified congenital malformation of uterus, third trimester; Q51.4 - Unicornate uterus (5) heart deceleration: (6) Hypothyroid: QUALIFIERS: Hypothyroidism type: unspecified Qualified Code(s): E03.9 - Hypothyroidism, unspecified COMMENT: taking synthroid. labs q trimester. NOB labs nl (7) History of precipitous delivery: (8) Varicose vein of leg: QUALIFIERS: Varicose vein complication: pain Laterality: left Qualified Code(s): I83.812 - Varicose veins of left lower extremity with pain COMMENT: left leg from groin to foot. (9) Hx of blood clots: COMMENT: assumed superficial clot in previous , left leg. ASA this . no family hx-discussed with SM. no need for additional labs at this time. (10) Supervision of high-risk : QUALIFIERS: Trimester: third trimester Qualified Code(s): O09.93 - Supervision of high risk , unspecified, third trimester COMMENT: PRR, , PRASHANTH 04/15/24, PC, Evan Crow, Al (11) : QUALIFIERS: Weeks of gestation: 34 weeks Qualified Code(s): Z3A.34 - 34 weeks gestation of COMMENT: nl anatomy, discussed genetic & carrier testing (12) Anxiety: COMMENT: stable PLAN: Plan admit for melecio Lopez. repeta bpp in am Charges/Coding Multi Select Codes Visit Charges Office Visit/Consults: 73420 OV L3 Est 20min Urinary/Genital Urinary/Genital CPT Codes: 50469-04 non-stress test Interp
[2024-02-26] VITALS (16 sets, daily range): BP systolic 109–134; BP diastolic 61–96; PULSE 88–121; RESP 16–20; TEMP 36.5–37.4; O2SAT 98–100
--- NOTE | 2024-02-26 06:30 | US_ITS ---
EXAM: US , LIMITED CLINICAL INDICATION: growth ultra sound d/t decrease movement TECHNIQUE: Real-time limited ultrasound of the maternal uterus with image documentation. COMPARISON: No relevant prior studies available. FINDINGS: GESTATIONAL AGE: Gestational age by measurements is 34 weeks. Established gestational age is 34 weeks 2 days. PRASHANTH: PRASHANTH is April 08, 2024. EFW: Estimated weight is 2268 g. BPD: Biparietal diameter is 8.5 cm. HC: Head circumference is 31.0 cm. AC: Abdominal circumference is 30.4 cm. FL: Femur length is 6.2 cm. POSITION: Cephalic presentation. HEART RATE: cardiac rate is 138 bpm. PLACENTA: Anterior placenta. AMNIOTIC FLUID: Amniotic fluid index is 16.1 cm. CERVIX: Cervix is not imaged. OTHER FINDINGS: Normal interval growth. IMPRESSION: Single live 34 week intrauterine gestation with normal interval growth. Electronically Signed: Dimas Wilson MD at 8:46 EDT , EXAM: US BIOPHYSICAL PROFILE WITHOUT NON-STRESS TESTING CLINICAL INDICATION: growth ultra sound d/t decrease movement TECHNIQUE: Real-time ultrasound of the maternal pelvis for biophysical profile evaluation with image documentation. COMPARISON: No relevant prior studies available. FINDINGS: BREATHING MOVEMENTS: Present. Score 2/2. GROSS BODY MOVEMENTS: Present. Score 2/2. TONE: Present. Score 2/2. QUALITATIVE AMNIOTIC FLUID VOLUME: Amniotic fluid index is 16.1 cm. HEART RATE: cardiac rate is 138 bpm. PRESENTATION: Single fetus in cephalic presentation. US/OB Limited With Biometrics IMPRESSION: No acute findings. Normal biophysical profile with score of 8/8. Electronically Signed: Dimas Wilson MD at 8:47 EDT ,
--- NOTE | 2024-02-26 11:07 | OB.TRI.HP_ITS ---
HPI - General HPI Narrative LÓPEZ WILLIAMSON, is a 34 F @ 34w2d admitted for decreased movment and decelerations. bpp 04/03 again this am but still having intemrittent decels. no regular ctx no vb lof admits some fm now. Maternal Data Information PRASHANTH Calculator Estimated Delivery Date Method Current WG Current Estimate 04/06/24 Ultrasound #1 34w 2d Other Estimates 04/15/24 LMP (Certain) 33w 0d PFSH PFSH Medical History Hx of infertility Varicose vein of leg H/O delivery, currently Unicornate uterus affecting History of infertility History of blood clots Anxiety Home Medications ?Medication ?Instructions ?Recorded ?Last Taken ?Type sertraline 50 mg tablet 50 mg PO DAILY depression 12/03/16 02/24/24 21:00 History 50 mg levothyroxine 25 mcg tablet 25 mcg PO DAILY hypothyroidism 09/05/19 02/25/24 07:00 History (Synthroid) 25 mcg vitamin no.49-iron 1 tab PO DAILY #30 tabs 01/07/20 02/24/24 21:00 Rx fum-folic acid 6.75 mg iron-200 1 TAB mcg tablet (Mini ) aspirin 81 mg chewable tablet 1 tab PO DAILY 02/25/24 Unknown History (Aspirin Childrens) Allergy/AdvReac Type Severity Reaction Status Date / Time amoxicillin Allergy Unknown Verified 02/25/24 11:37 nut - unspecified Allergy Swelling Verified 02/25/24 11:37 Family History Father Hypertension Grandmother Diabetes Grandfather Heart disease Surgical History H/O breast biopsy H/O laparoscopy History of wisdom tooth extraction, class II edentulism Social History adopted: No household members: family housing: house number of children: 2 current occupational status: employed current occupation: [employer] current occupational exposures/hazards: No pets and animals: Yes pets and animals: dog(s) history of recent travel: No sexually active: Yes Smoking Status: Never smoker second hand exposure: No alcohol intake: never substance use type: does not use well-balanced diet: daily or most days caffeine: No eating out: rarely or never during the past year weight has: remained stable what type of physical activity do you participate in: walking frequency: 3-4 times per week duration: 15-30 minutes/day gilmar/synagogue: [employer] seatbelt use: always do you feel safe at home: Yes additional social history: 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 Date Name GA/Weeks Outcome Route Bth Weight Gen Labor Lgth Anesthesia Del Locatn Provider FOB Unknown 2016 [place] 36 live - full term 4lbs 10oz Female 1 hour none [facility] Seals Al Unknown 03/2019 miscarriage 8 spontaneous 03/26/20 Evan 37 live - full term Male precip itous delivery none [facility] KG Delivery Date: Last Updated by: Kati Sanon elevated AFP; sacral dimple- negative US Delivery Date: Last Updated by: Luzma Barrera frozen embryo transfer Visit Details Expected Delivery Route/Plan Labor Preferences- CB/BF classes: No labor support person: Al labor intervention preferences: tub pain management options preferred: limited. tub cut cord/dad catch: yes : yes PP control planned: discussed discussed possible routes of delivery and associated risks: [] special requests: [] Plans Covid status: [] Flu vaccine: [] Tdap vaccine: declines Rhogam: na LARC form signed: yes Problem list reviewed and updated with the most current plan of care details and appropriate orders placed. Relevant counseling for the gestational age provided. Continue routine care and follow up unless otherwise noted in visit notes/problem list details OB Flowsheet Initial Weight: Not Recorded Date -?-?-?-?-?-?-?-?-?-?-?-?- EGA Weight BP Urine Prot -?-?-?-?-?-?-?-?-?-?-?-?- Glucose FHR FuHt Pres Dilation -?-?-?-?-?-?-?-?-?-?-?-?- Effaced St Visit Note 09/13/23 -?-?-?-?-?-?-?-?-?-?-?-?- 10w 4d 122 lb 8 oz 125/80 -?-?-?-?-?-?-?-?-?-?-?-?- 180 -?-?-?-?-?-?-?-?-?-?-?-?- kw-CRL cons with LMP and not [facility] US that was abdominal US. accepts NIPT. Hx blood clot start ASA 81 mg. discussed with SM. 10/09/23 -?-?-?-?-?-?-?-?-?-?-?-?- 14w 2d 122 lb 6 oz 96/66 Nega tive -?-?-?-?-?-?-?-?-?-?-?-?- Negative 160 -?-?-?-?-?-?-?-?-?-?-?-?- KW- has had ligh t brown spotting x 2 weeks but formal US is reassuring. has MFM 11/04. no cramping. overall feeling well. AFP discussed and declined at this time. 11/12/23 -?-?-?-?-?-?-?-?-?-?-?-?- 19w 1d 128 lb 4 oz 98/64 Nega tive -?-?-?-?-?-?-?-?-?-?-?-?- Negative 156 -?-?-?-?-?-?-?-?-?-?-?-?- LC- no vb/crampi ng. LC- no vb/cramping. normal a natomy. 12/11/23 -?-?-?-?-?-?-?-?-?-?-?-?- 23w 2d 132 lb 113/74 Trace -?-?-?-?-?-?-?-?-?-?-?-?- Negative 150 23 -?-?-?-?-?-?-?-?-?-?-?-?- KW- no vb/lof/ct x. good fm. 28 week labs discussed. thyroid labs ordered. has 2-3cm soft, nontender lump in right axilla. US ordered. 01/15/24 -?-?-?-?-?-?-?-?-?-?-?-?- 28w 2d 140 lb 4 oz 108/64 Nega tive -?-?-?-?-?-?-?-?-?-?-?-?- Negative 153 28 -?-?-?-?-?-?-?-?-?-?-?-?- Mh-NO VB, LOF. G ood Fm. Larc. Declines tdap. Plans 28 wk labs end of this week 01/31/24 -?-?-?-?-?-?-?-?-?-?-?-?- 30w 4d 146 lb 8 oz 126/83 Nega tive -?-?-?-?-?-?-?-?-?-?-?-?- Negative 145 30 -?-?-?-?-?-?-?-?-?-?-?-?- KW- no vb/lof/ct x. good fm. Unable to tolerate glucose. started doing 4x daily testing and most in range. Recommended fresh test. or at least doing other labs. 02/12/24 -?-?-?-?-?-?-?-?-?-?-?-?- 32w 2d 146 lb 8 oz 125/74 Nega tive -?-?-?-?-?-?-?-?-?-?-?-?- Negative 133 32 Cephalic -?-?-?-?-?-?-?-?-?-?-?-?- JV- no lof, vagi nal bleeding, or dec fm. vtx on bedside scan 02/25/24 -?-?-?-?-?-?-?-?-?-?-?-?- 34w 1d 151 lb 6 oz 127/80 Trac e -?-?-?-?-?-?-?-?-?-?-?-?- Negative 140 34 -?-?-?-?-?-?-?-?-?-?-?-?- MH-No VB, LOF. Dec FM since last pm. Unreactive NST-to WP to get BPP. Denies headache/vision changes but is noting more edema hands, legs. Pre E labs 02/25/24 -?-?-?-?-?-?-?-?-?-?-?-?- 34w 1d 150 lb 9.211 oz 131/ 68 133/77 119/70 144/83 137/65 134/75 128/72 132/71 -?-?-?-?-?-?-?-?-?-?-?-?- 140 -?-?-?-?-?-?-?-?-?-?-?-?- ROS Constitutional Constitutional: Reports systems reviewed and no addt'l complaints, except as documented and as per HPI ENT HEENT: Reports systems reviewed and no addt'l complaints, except as documented Cardiovascular Cardiovascular: Reports systems reviewed and no addt'l complaints, except as documented Respiratory/Chest Respiratory/Chest: Reports systems reviewed and no addt'l complaints, except as documented Gastrointestinal Gastrointestinal: Reports as per HPI Genitourinary Genitourinary: Reports as per HPI Musculoskeletal Musculoskeletal: Reports systems reviewed and no addt'l complaints, except as documented Integumentary Integumentary: Reports systems reviewed and no addt'l complaints, except as documented Neurologic Neurologic: Reports systems reviewed and no addt'l complaints, except as documented Physical Exam Const alert, oriented x3 and no apparent distress Neck full ROM and no lymphadenopathy Chest inspection of chest normal Resp normal respiratory effort GI GI Narrative: gravid, abdomen nontender, AGA Manual OB Exam: dilated, effaced and station NST FHR Rate Baby A Baseline: 140 Variability:: Moderate Accelerations:: 15 x 15 Decelerations:: Late (intermittent occasional) and Prolonged (occasional) Assessment & Plan (1) Proteinuria: QUALIFIERS: Proteinuria type: unspecified Qualified Code(s): R80.9 - Proteinuria, unspecified COMMENT: Pre E labs-nl (2) Decreased movement: QUALIFIERS: Fetus number: single or unspecified fetus Trimester: third trimester Qualified Code(s): O36.8130 - Decreased movements, third trimester, not applicable or unspecified COMMENT: continuous monitoring, BPP reassuring, having intermittent occaisional decels. discussed with mfm (3) Anemia affecting : QUALIFIERS: Trimester: third trimester Qualified Code(s): O99.013 - Anemia complicating , third trimester COMMENT: Daily FE (4) Unicornate uterus affecting : QUALIFIERS: Trimester: third trimester Qualified Code(s): O34.03 - Maternal care for unspecified congenital malformation of uterus, third trimester; Q51.4 - Unicornate uterus (5) heart deceleration: (6) Hypothyroid: QUALIFIERS: Hypothyroidism type: unspecified Qualified Code(s): E03.9 - Hypothyroidism, unspecified COMMENT: taking synthroid. labs q trimester. NOB labs nl (7) History of precipitous delivery: (8) Varicose vein of leg: QUALIFIERS: Varicose vein complication: pain Laterality: left Qualified Code(s): I83.812 - Varicose veins of left lower extremity with pain COMMENT: left leg from groin to foot. (9) Hx of blood clots: COMMENT: assumed superficial clot in previous , left leg. ASA this . no family hx-discussed with SM. no need for additional labs at this time. (10) Supervision of high-risk : QUALIFIERS: Trimester: third trimester Qualified Code(s): O09.93 - Supervision of high risk , unspecified, third trimester COMMENT: PRR, , PRASHANTH 04/15/24, PC, Evan Crow, Al (11) : QUALIFIERS: Weeks of gestation: 34 weeks Qualified Code(s): Z3A.34 - 34 weeks gestation of COMMENT: nl anatomy, discussed genetic & carrier testing (12) Anxiety: COMMENT: stable PLAN: Plan discussed with MFM and recommend ELECTRICAL INSPECTOR, if positive recommmend csection for delivery. give second celestone. keep NPO for now Charges/Coding Visit Charges Office Visits / Consults: 92911 OV L3 Est 20min
[2024-02-26] MEDS: Lactated Ringers 1,000 ML 999 ML IV ×2 (11:40→20:55)
[2024-02-26] MEDS: Betamethasone/Betamethasone 30 MG/5 ML Vial 12 MG IM (13:51)
[2024-02-26] MEDS: Lactated Ringers 1,000 ML 100 ML IV (13:52)
[2024-02-26] MEDS: Oxytocin 15 Units/NS 250ml 15 UNITS/250 ML IV.SOLN IV (13:54)
[2024-02-26] MEDS: Gentamicin IV 260 MG in Dextrose 5%-Water (50mL Bag) 50 ML 100 MG IVPB (15:57)
--- NOTE | 2024-02-26 16:02 | PN_ITS ---
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
--- NOTE | 2024-02-26 16:02 | PCM.PN.BLA ---
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
--- NOTE | 2024-02-26 16:03 | OP.PCM_ITS ---
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 (2) Proteinuria: QUALIFIERS: Proteinuria type: unspecified Qualified Code(s): R80.9 - Proteinuria, unspecified COMMENT: Pre E labs-nl (3) Decreased movement: QUALIFIERS: Fetus number: single or unspecified fetus Trimester: third trimester Qualified Code(s): O36.8130 - Decreased movements, third trimester, not applicable or unspecified (4) Anemia affecting : QUALIFIERS: Trimester: third trimester Qualified Code(s): O99.013 - Anemia complicating , third trimester COMMENT: Daily FE (5) Unicornate uterus affecting : QUALIFIERS: Trimester: third trimester Qualified Code(s): O34.03 - Maternal care for unspecified congenital malformation of uterus, third trimester; 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 labs q trimester. NOB labs nl (7) History of precipitous delivery: (8) Varicose vein of leg: QUALIFIERS: Laterality: left Varicose vein complication: pain Qualified Code(s): I83.812 - Varicose veins of left lower extremity with pain COMMENT: left leg from groin to foot. (9) Hx of blood clots: COMMENT: discussed with patient- questionable history of superficial vs deep, due to c section, will order lovenox x 6 weeks potspartum, patient to contact vascular surgery to confirm recommendations (10) Supervision of high-risk : QUALIFIERS: Trimester: third trimester Qualified Code(s): O09.93 - Supervision of high risk , unspecified, third trimester COMMENT: PRR, , PRASHANTH 04/15/24, PC, Evan Crow, Al (11) : QUALIFIERS: Weeks of gestation: 34 weeks Qualified Code(s): Z3A.34 - 34 weeks gestation of COMMENT: nl anatomy, discussed genetic & carrier testing (12) Anxiety: COMMENT: stable (13) delivery delivered: COMMENT: SM LTCS girl Mary 34 dec fm recurrent decels Maternal Data Information PRASHANTH Calculator Estimated Delivery Date Method Current WG Current Estimate 04/06/24 Ultrasound #1 34w 3d Other Estimates 04/15/24 LMP (Certain) 33w 1d Details Operative Information Date of Procedure: 02/26/24 Pre-Operative Diagnosis: decreased movement, recurrent late decelerations, non reassuring fht Post-Operative Diagnosis: same Indications Narrative: Surgeon: Tami Miranda MD Procedure Type: low transverse resident in diagnostic radiology #1: Alex Jones Type of Anesthesia: Spinal Special Medications: none Antibiotic Given: Ancef 2 grams IV x1 Drain: Ackerman to straight drain Fluids Replaced: crystalloid Findings Description of Procedure: Spinal anesthesia was placed without difficulty. Ackerman catheter was placed. The patient was placed in the dorsal supine position with leftward tilt. Patient was prepped and draped in the normal sterile fashion. Pfannenstiel skin incision was made with the scalpel and carried through to the underlying layer of fascia with the scalpel. Fascia was nicked in the midline and the incision extended laterally. The rectus bellies were dissected off superiorly and inferiorly with out complication both sharply and bluntly. The peritoneum was entered digitally. The incision was stretched and a low transverse uterine incision was made with the scalpel. The 's head was delivered atraumatically followed by the anterior and posterior shoulders without complication the rest of the infant delivered. The cord was clamped and cut and the was handed off to awaiting nurse. The placenta was delivered spontaneously immediately following and was noted to be intact and have a three- vessel cord. The uterus was exteriorized cleared of all clots and debris, and a 3 x 2 cm fibroid was noted in the incision on the right side which was removed because of it possibly interfering with closure,hemostasis of that area noted with removal. large pelvic congestion and veins of the uterus was seen, and the incision was closed in a double layer closure using #1 Monocryl and 2 0 vicryl additional sutures on the left side of the incision was needed, including oversewing with 3-0 monocryl and then floseal for hemostasis. the left part of the uterus was well developed with there was a very small rudimentary right uterine horn noted with a nonfunctional appearing right tube, nl right ovary. The left ovary and left fallopian tube was noted to be within normal limits. The uterus was returned to the maternal abdomen and gutters were cleared of all clots and debris. The peritoneum was closed with 3-0 Monocryl in a running fashion. Fascia was closed with 0 PDS in a running fashion. Subcutaneous tissue was copiously irrigated and the skin was closed with 3-0 Monocryl in a subcuticular fashion. Mepilex dressing was applied without complication. Patient was taken to recovery in stable condition. Amniotic Membrane Rupture Type: Artificial Amniotic Fluid Description: Clear Placenta Disposition: [facility] Cord Vessel Description: 3 Vessels Delayed Cord Clamping: Yes Complications Risks of Surgery Discussed w/Patient: Bleeding, Infection, Need for Future C- Sections and Injury to surrounding structure(s) including bowel and bladder Vaginal Delivery Complication Complications: None Admit VTE Documentation VTE Present on Admission: No VTE Mechan Device Prophylaxis: SCD's Procedures Urinary/Genital 52xxx-[id number]: [id number] Delivery [facility]
[2024-02-26] MEDS: Sodium Citrate/Citric Acid 30 ML UDC PO (16:08)
[2024-02-26] MEDS: Clindamycin 900 MG/50 ML BAG 75 MG IV (16:09)
--- NOTE | 2024-02-26 16:12 | DCINST_ITS ---
Discharge Instructions Diet Discharge Diet: No restrictions Activity Discharge Activity: May Not Drive (for 2 weeks or while taking narcotic pain medications.), May Shower and May Take a Tub Bath (in 7 days) May shower in (days): 0 May resume sexual activity in: 4-6 weeks Weight Bearing Status: Full weight bearing Lifting Restrictions: 20 pounds Dressing / Incision Call your doctor if your incision/area has: Continuous Slow Oozing, Sudden Increased Bleeding, Increased Pain/ Swelling, Increased Redness and Foul Smelling Discharge Call your doctor if you observe: Fever of 101 or Higher and Using more than 1 pad per hour (for 2 hours) Suture Line Care: Avoid Pulling/Pushing and Avoid Pinching/Bending Cleanse incision/area with: Soap & Water and Keep Dressing Clean & Dry Follow Up Care Please Follow Up With: Tami Miranda MD When: Call [phone] to make an appointment for an incision check in 1-2 weeks. Test Results: Test results from this visit will be discussed in further detail at your follow- up appointment, if applicable. Discharge Plan Admission Admit Date/Time: 02/26/24 16:09 Attending Provider: Tami Miranda Primary Care Provider: Tere Moran Discharge Orders/Prescriptions Prescriptions: New oxycodone-acetaminophen [Percocet] 5-325 mg tablet 1 tab PO Q6H PRN (Reason: pain) 7 Days Qty: 20 0RF naproxen 500 mg tablet 500 mg PO BID PRN PRN (Reason: Pain) Qty: 30 1RF enoxaparin [Lovenox] 40 mg/0.4 mL syringe 40 mg SQ DAILY 40 Days Qty: 20 1RF Continued levothyroxine [Synthroid] 25 mcg tablet 25 mcg PO DAILY aspirin [Aspirin Childrens] 81 mg tablet,chewable 1 tab PO DAILY Patient Comments: pt voices she is terrible about remembering to take. No Action sertraline 50 MG tablet 50 mg PO DAILY Mini 6.75 mg iron- 200 mcg tablet 1 tab PO DAILY Qty: 30 12RF Referrals / Follow Up: Tere Moran DO [Primary Care Provider] - Disposition Disposition (needs filled in before D/C Order can be placed): Home, Self Care
[2024-02-26] MEDS: Acetaminophen 500 MG Tablet 1000 MG PO ×2 (16:21→20:08)
--- NOTE | 2024-02-26 16:23 | UTER_PTH ---
PATIENT: LÓPEZ WILLIAMSON LOC: [facility] U#:[id number] AGE/SX: 34/F ROOM: WP010 RE02/26/[address]: Dr. Tami Miranda MD : 1990 BED: 1 DIS: 02/28/2024 SPEC #: [id number] RECD: 02/26/24 20:14 STATUS: TERESITA MOLINA #: [id number] PAULINA: 02/26/24 16:[address]: Tami Miranda DEPT: SURGICAL PATHOLOGY RECD BY: Maria Esther Torres ENTERED: 02/27/24 07:44 SP TYPE: UTERINE CO OTHR DR: Dr. Tere Moran DO Tissues: A - Uterine cervix, NOS B - Placenta, NOS Procedures: Surgery Specimen Level IV Surgery Specimen Level V HEADER OPERATION: Primary section PRE-OP DIAGNOSIS: labor TISSUE SUBMITTED: A- Uterine fibroid, B- Placenta MICROSCOPIC DIAGNOSIS A. Uterine fibroid, excision: Leiomyoma (4.0cm in greatest dimension). B. Placenta: Placental disc - third trimester placenta (429 gm). Membranes - no pathologic diagnosis. Umbilical cord - three blood vessels and no pathologic diagnosis. SJ: 03/03/2024 MICROSCOPIC DESCRIPTION Slides are reviewed. GROSS DESCRIPTION A. Received is one container labeled with the patient's name and not further designated. The specimen consists of a de jesus ovoid nodular piece of tissue measuring 4.0 x 2.0 x 2.0cm. Sections reveal de jesus solid cut surfaces. Areas of hemorrhage, necrosis and cystic degeneration is not identified. Quality Assurance Inspector sections are submitted in four cassettes. B. SPECIMEN: PLACENTA / CLINICAL INFORMATION: A. Weight: 2.155 kg B. Gestational Age: 34 weeks C. Sex: Female PLACENTAL WEIGHT (POST FIXATION): 429 gm PLACENTAL DIMENSIONS: 19.0 x 13.0 x 3.5cm PLACENTAL SHAPE: Usual ovoid PLACENTAL WEIGHT FOR GESTATIONAL AGE: Within 10-99th percentile MEMBRANES - Present A. Insertion: Marginal B. Site of rupture from edge: at the margin of placental disc C. Color of membrane: De Jesus-grissom D. Abnormalities: None UMBILICAL CORD - Present A. Color: De Jesus-grissom B. Insertion: Central C. Length: 26.0 cm D. Diameter: 1.2 cm E. Number of vessels: Three F. Abnormalities: None PLACENTAL DISC - Present A. Color of surface: De Jesus-grissom B. surface abnormalities: None C. Maternal cotyledons: Body of the placenta is partially disrupted however appears to be complete. D. Attached retro placental clot: No clot E. Cut surface: Dark red and spongy F. Lesions: None G. Separate clot: Absent SECTIONS SUBMITTED: 6 cassettes 1. Membrane roll 2. Cord, maternal end 3. Cord, end 4. Placental disc, and maternal surfaces 5. Placental disc, and maternal surfaces 6. Placental disc, and maternal surfaces / 02/29/2024 TC:1 CPT: 20278 ,00898
[2024-02-26] MEDS: Oxytocin 15 Units/NS 250ml 15 UNITS/250 ML IV.SOLN 83 UNITS IV (17:55)
[2024-02-26] MEDS: Ketorolac 30 MG/ML Syringe IV (18:11)
[2024-02-26 20:06] LABS: Absolute Lymphocyte Count 0.66 X10^3/uL (0.83-4.51); Absolute Neutrophil Count 20.3 X10^3/uL (2.0-7.7); Basophil# 0.04 X10^3/uL; Basophil% 0.2 % (0-1); Eosinophil# 0.72 X10^3/uL; Eosinophils% 3.1 % (0-5); Hematocrit 25.8 % (37-47); Hemoglobin 8.3 g/dL (12.0-15.0); Lymphocyte # 0.66 X10^3/ul (0.83-4.51); Lymphocyte % 2.9 % (19-41); Mean Corp Hgb Conc 32.2 g/dL (32-36); Mean Corpuscular Hgb 30.2 pg (27.0-32.0); Mean Corpuscular Volume 93.8 fL (81-99); Mean Platelet Vol. 8.3 fl (6.2-12.0); Monocyte# 0.97 X10^3/uL; Monocyte% 4.2 % (0-10); NRBC Flagged by Analyzer 0 % (0-5); Neutrophil # 20.28 X10^3/uL (2.7-7.7); Neutrophil % 88.8 % (47-70); POSITIVE DIFFERENTIAL YES; POSITIVE MORPHOLOGY YES; Platelet Count 292 K/mm3 (150-450); RBC Distribution Width SD 44.3 fl (35.1-43.9); Red Blood Count 2.75 M/mm3 (4.2-5.4); White Blood Count 22.9 K/mm3 (4.4-11.0)
[2024-02-26 20:14] LABS: Differential Indicated SCAN CRITERIA MET
[2024-02-26 20:39] LABS: Platelet Estimate ADEQUATE (ADEQ)
[2024-02-26 20:40] LABS: Anisocytosis RARE; Hypochromasia RARE; Macrocytosis RARE; Ovalocyte RARE; Red Cell Morphology N CHROM NORMAL (NORM C&C)
[2024-02-27] VITALS (12 sets, daily range): BP systolic 105–137; BP diastolic 58–82; PULSE 84–108; RESP 16; TEMP 36.1–36.8; O2SAT 95–99
[2024-02-27] MEDS: Ketorolac 30 MG/ML Syringe IV ×3 (00:12→12:20)
[2024-02-27] MEDS: 0.9% Saline Lock 10 ML Syringe IV ×4 (00:12→10:56)
[2024-02-27] MEDS: Acetaminophen 500 MG Tablet 1000 MG PO ×4 (02:10→23:00)
[2024-02-27 05:19] LABS: Hematocrit 21.7 % (37-47); Hemoglobin 7.1 g/dL (12.0-15.0); Mean Corp Hgb Conc 32.7 g/dL (32-36); Mean Corpuscular Hgb 30.9 pg (27.0-32.0); Mean Corpuscular Volume 94.3 fL (81-99); Mean Platelet Vol. 8.2 fl (6.2-12.0); Platelet Count 259 K/mm3 (150-450); RBC Distribution Width CV 12.9 % (11.6-14.6); RBC Distribution Width SD 44.1 fl (35.1-43.9)
[2024-02-27] MEDS: Enoxaparin 40 MG/0.4 ML Syringe SC (06:25)
[2024-02-27] MEDS: Levothyroxine 25 MCG TABLET PO (06:41)
[2024-02-27] MEDS: Senna/Docusate Sodium 1 Tablet PO (10:01)
[2024-02-27] MEDS: Sertraline 50 MG Tablet PO (10:02)
--- NOTE | 2024-02-27 11:46 | PN.OBGYN_ITS ---
Subjective Subjective Patient doing well without complaints. Tolerating PO. Ambulating and voiding without difficulty. feeding well. Denies chest pain, shortness of breath, calf pain/swelling, fevers, chills, lightheadedness. Objective Data Objective Data Vital Signs: Vital Signs Temp Pulse Resp BP Pulse Ox O2 Del Method 97 F L 93 16 119/66 99 Room Air 02/27/24 10:06 02/27/24 10:06 02/27/24 10:06 02/27/24 10:06 02/27/24 10:02/27/24 10:06 Oxygen Delivery Method Room Air Weight: 150 lb 9.211 oz Body Mass Index (BMI) 26.6 Intake & Output: Intake and Output for Last 24 Hours 02/25/24 02/26/24 02/27/24 23:59 23:59 23:59 Intake Total 1000 / 1000 2622.14 / 2622.14 16.5 / 16.5 Output Total 1400 / 1400 200 / 200 Balance 1000 / 1000 1222.14 / 1222.14 -183.5 / -183.5 Lab / Micro Data 02/27/24 05:10 Labs: Laboratory Results - last 24 hr 02/25/24 15:10: Crossmatch See Detail 02/26/24 19:54: WBC 22.9 H, RBC 2.75 L, Hgb 8.3 L, Hct 25.8 L, MCV 93.8, MCH 30.2, MCHC 32.2, RDW Std Deviation 44.3 H, RDW Coeff of Emily 13.0, Plt Count 292, MPV 8.3, Immature Gran % (Auto) 0.800, Neut % (Auto) 88.8 H, Lymph % (Auto) 2.9 L, Perkins % (Auto) 4.2, Eos % (Auto) 3.1, Baso % (Auto) 0.2, Absolute Neuts (auto) 20.3 H, Absolute Lymphs (auto) 0.66 L, Nucleated RBC % 0, Differential Comment SEE COMMENT, Platelet Estimate ADEQUATE, RBC Morphology N CHROM, Hypochromasia RARE, Anisocytosis RARE, Macrocytosis RARE, Ovalocytes RARE 02/27/24 05:10: WBC 17.0 H, RBC 2.30 L, Hgb 7.1 L, Hct 21.7 L, MCV 94.3, MCH 30.9, MCHC 32.7, RDW Std Deviation 44.1 H, RDW Coeff of Emily 12.9, Plt Count 259, MPV 8.2 Radiography Diagnostic Testing: Radiology Impression Obstetrics Ultrasound 02/26/24 06:30 IMPRESSION: No acute findings. Normal biophysical profile with score of 8/8. Electronically Signed: Dimas Wilson MD at 8:47 EDT Reading Location ID and State: [address] [place] [address] Tel , Service support , ADDENDUM: 02/26/24 1351 IMPRESSION: No acute findings. Normal biophysical profile with score of 8/8. Electronically Signed: Dimas Wilson MD at 13:25 EDT Reading Location ID and State: [facility] / [place] Tel , Service support , ROS Constitutional Constitutional: Reports systems reviewed and no addt'l complaints, except as documented Cardiovascular Cardiovascular: Reports systems reviewed and no addt'l complaints, except as documented Respiratory/Chest Respiratory/Chest: Reports systems reviewed and no addt'l complaints, except as documented Gastrointestinal Gastrointestinal: Reports systems reviewed and no addt'l complaints, except as documented Physical Exam Const alert, oriented x3 and no apparent distress HEENT Head and Scalp: atraumatic Resp normal respiratory effort GI soft to palpation and non-tender Inspection: incision intact, healing well and drainage (none) Bimanual Exam - Vag & Uterus: uterus non-tender Uterus Palpation: uterus fundus firm (below Umbilicus) Assessment & Plan (1) Acute on chronic anemia: (2) delivery delivered: COMMENT: LTCS girl Mary 34 dec fm recurrent decels PLAN: Plan s/p LTCS PPD # 1 1. routine post care 2. breast feeding- support given 3. rh positive 4. rubella immune discussed blood transfusion recommendation
[2024-02-27 13:18] LABS: Absolute Lymphocyte Count 1.51 X10^3/uL (0.83-4.51); Absolute Neutrophil Count 13.9 X10^3/uL (2.0-7.7); Basophil# 0.01 X10^3/uL; Basophil% 0.1 % (0-1); Hematocrit 25.6 % (37-47); Hemoglobin 8.2 g/dL (12.0-15.0); Lymphocyte # 1.51 X10^3/ul (0.83-4.51); Lymphocyte % 8.7 % (19-41); Mean Corpuscular Hgb 29.3 pg (27.0-32.0); Mean Corpuscular Volume 91.4 fL (81-99); Mean Platelet Vol. 8.5 fl (6.2-12.0); Monocyte# 1.68 X10^3/uL; Monocyte% 9.7 % (0-10); NRBC Flagged by Analyzer 0.1 % (0-5); Neutrophil # 13.92 X10^3/uL (2.7-7.7); Neutrophil % 80.6 % (47-70); POSITIVE DIFFERENTIAL YES; Platelet Count 310 K/mm3 (150-450); RBC Distribution Width CV 14.3 % (11.6-14.6); RBC Distribution Width SD 48.2 fl (35.1-43.9); White Blood Count 17.3 K/mm3 (4.4-11.0)
[2024-02-27 13:22] LABS: Differential Indicated SCAN CRITERIA MET
--- NOTE | 2024-02-27 16:02 | CASEMGMT ---
Labor and Delivery Social Work MOB delivered baby on 02/26/24 at 34 weeks gestation via emergency . Sw met with mother of baby (ELENA Camacho) at bedside and completed psychosocial assessment. Baby has been transferred to [facility]. MOB still admitted following delivery. Sw assessed for any immediate needs or concerns, which MOB denies at this time. Sw provided support, literature on mood and anxiety disorders to be on the lookout for, and Help Me Grow. MOB talkative and receptive to sw involvement and support. Formal assessment to be entered at later time. MOB to be discharged when medically ready. Tierney Jay, SPRING WINDER, SLOT EDITOR
[2024-02-27] MEDS: Naproxen 500 MG Tablet PO (18:39)
--- NOTE | 2024-02-27 23:28 | NURSING ---
report received from belen VILLA. this RN to assume care of pt at this time.
[2024-02-28] MEDS: Naproxen 500 MG Tablet PO (03:19)
[2024-02-28 03:21] VITALS: BP 128/82; PULSE 85; RESP 16; TEMP 36.2
[2024-02-28] MEDS: Enoxaparin 40 MG/0.4 ML Syringe SC (05:21)
[2024-02-28] MEDS: Acetaminophen 500 MG Tablet 1000 MG PO (05:21)
[2024-02-28] MEDS: Levothyroxine 25 MCG TABLET PO (05:21)
[2024-02-28 06:21] LABS: Absolute Lymphocyte Count 2.72 X10^3/uL (0.83-4.51); Absolute Neutrophil Count 10.5 X10^3/uL (2.0-7.7); Basophil# 0.02 X10^3/uL; Basophil% 0.1 % (0-1); Eosinophil# 0.01 X10^3/uL; Eosinophils% 0.1 % (0-5); Hematocrit 26.7 % (37-47); Hemoglobin 8.5 g/dL (12.0-15.0); Lymphocyte # 2.72 X10^3/ul (0.83-4.51); Lymphocyte % 18.4 % (19-41); Mean Corp Hgb Conc 31.8 g/dL (32-36); Mean Corpuscular Hgb 29.3 pg (27.0-32.0); Mean Corpuscular Volume 92.1 fL (81-99); Mean Platelet Vol. 8.6 fl (6.2-12.0); Monocyte# 1.39 X10^3/uL; Monocyte% 9.4 % (0-10); NRBC Flagged by Analyzer 0.1 % (0-5); Neutrophil # 10.46 X10^3/uL (2.7-7.7); Neutrophil % 70.8 % (47-70); Platelet Count 322 K/mm3 (150-450); RBC Distribution Width CV 14.6 % (11.6-14.6); RBC Distribution Width SD 49.7 fl (35.1-43.9); White Blood Count 14.8 K/mm3 (4.4-11.0)
--- NOTE | 2024-02-28 06:57 | PCM.DC.SUM ---
Providers Date of Admission: 02/26/24 Primary Care Physician: Dr. Tere Moran DO Reason For Visit: PRIMARY Diagnosis Discharge Diagnosis (1) Acute on chronic anemia: Status: Chronic Code(s): D64.9 - Anemia, unspecified (2) delivery delivered: Status: Acute Code(s): O82 - Encounter for delivery without indication Plan s/p LTCS PPD # 1 1. routine post care 2. breast feeding- support given 3. rh positive 4. rubella immune discussed blood transfusion recommendation Medications at Discharge Home Medications sertraline 50 mg tablet 50 mg PO DAILY depression 12/03/16 levothyroxine 25 mcg tablet (Synthroid) 25 mcg PO DAILY hypothyroidism 09/05/19 vitamin no.49-iron fum-folic acid 6.75 mg iron-200 mcg tablet (Mini ) 1 tab PO DAILY #30 tabs 01/07/20 aspirin 81 mg chewable tablet (Aspirin Childrens) 1 tab PO DAILY 02/25/24 enoxaparin 40 mg/0.4 mL subcutaneous syringe (Lovenox) 40 mg (0.4 mL) SQ DAILY 40 days #20 mL 02/26/24 naproxen 500 mg tablet 500 mg PO BID PRN PRN Pain #30 tabs 02/26/24 oxycodone-acetaminophen 5 mg-325 mg tablet (Percocet) 1 tab PO Q6H PRN pain 7 days #20 tabs 02/26/24 Hospital Course Summary of Care Provided Hospital Course: patient presented due to decreased movement, initially had reassuring testing and 8/8 bpps but would hav eintermittent late or prolonged decels so was monitored overnight and given steroids. Her case was discussed with MFM and a MUNITIONS HANDLER SUPERVISOR was recommended, and the MUNITIONS HANDLER SUPERVISOR was unable to be completed due to decelerations and minimal variability so the decision to proceed with cseciton was made. patient had an increased blood loss with deliveyr due to complicated anatomy and varicosities, and had postop anemia that required 1 unit of blood to be transfused. overall she did well and Postoperatively patient had return of bowel and bladder function and was ambulating well, tolerating adequate p.o., and was stable for discharge to home on postop day #2. Discharge medications naproxen and Percocet. Follow-up in office in 2 weeks for incision check in 6 weeks for visit. Routine post section diet and activity instructions. Weight / BMI Weight Weight: 150 lb 9.211 oz Body Mass Index (BMI) 26.6 ABG / Lab / Microbiology Data 02/28/24 05:20 Laboratory: Laboratory Results - last 24 hr 02/25/24 15:10: Crossmatch See Detail 02/27/24 13:00: WBC 17.3 H, RBC 2.80 L, Hgb 8.2 L, Hct 25.6 L, MCV 91.4, MCH 29.3, MCHC 32.0, RDW Std Deviation 48.2 H, RDW Coeff of Emily 14.3, Plt Count 310, MPV 8.5, Immature Gran % (Auto) 0.900, Neut % (Auto) 80.6 H, Lymph % (Auto) 8.7 L, [place] % (Auto) 9.7, Eos % (Auto) 0.0, Baso % (Auto) 0.1, Absolute Neuts (auto) 13.9 H, Absolute Lymphs (auto) 1.51, Nucleated RBC % 0.1, Differential Comment COMMENT, Diff Path Review May foll 02/28/24 05:20: WBC 14.8 H, RBC 2.90 L, Hgb 8.5 L, Hct 26.7 L, MCV 92.1, MCH 29.3, MCHC 31.8 L, RDW Std Deviation 49.7 H, RDW Coeff of Emily 14.6, Plt Count 322, MPV 8.6, Immature Gran % (Auto) 1.200 H, Neut % (Auto) 70.8 H, Lymph % (Auto) 18.4 L, [place] % (Auto) 9.4, Eos % (Auto) 0.1, Baso % (Auto) 0.1, Absolute Neuts (auto) 10.5 H, Absolute Lymphs (auto) 2.72, Nucleated RBC % 0.1 D/C Instructions Discharge Diet: No restrictions Discharge Activity: May Not Drive (for 2 weeks or while taking narcotic pain medications.), May Shower and May Take a Tub Bath (in 7 days) May shower in (days): 0 May resume sexual activity in: 4-6 weeks Weight Bearing Status: Full weight bearing Call your doctor if your incision/area has: Continuous Slow Oozing, Sudden Increased Bleeding, Increased Pain/ Swelling, Increased Redness and Foul Smelling Discharge Call your doctor if you observe: Fever of 101 or Higher and Using more than 1 pad per hour (for 2 hours) Suture Line Care: Avoid Pulling/Pushing and Avoid Pinching/Bending Cleanse incision/area with: Soap & Water and Keep Dressing Clean & Dry Please Follow Up With: Tami Miranda MD When: Call [phone] to make an appointment for an incision check in 1-2 weeks. Meaningful Use Info Meaningful Use Meaningful Use Diagnoses (Choose all that apply): None applicable Ischemic Stroke Statin Dosing Therapy Reference: STATIN DOSE THERAPY REFERENCE: * Patients > 75 years receive moderate or high dose statin therapy. * Patients 75 years or YOUNGER should receive HIGH intensity statin dose unless contraindicated. You will be required to document reason for non-treatment if statin daily dose does not meet guidelines. HIGH DOSE STATIN THERAPY DAILY Atorvastatin > than or = to 40 mg Rosuvastatin > than or = to 20 mg Amlodipine + Atorvastatin > than or = to 2.5/40 mg Ezetimibe + Simvastatin 10/80 mg Simvastatin 80mg Discharge Plan Admission Admit Date/Time: 02/26/24 16:09 Attending Provider: Tami Miranda Primary Care Provider: Tere Moran Discharge Orders/Prescriptions Prescriptions: New oxycodone-acetaminophen [Percocet] 5-325 mg tablet 1 tab PO Q6H PRN (Reason: pain) 7 Days Qty: 20 0RF naproxen 500 mg tablet 500 mg PO BID PRN PRN (Reason: Pain) Qty: 30 1RF enoxaparin [Lovenox] 40 mg/0.4 mL syringe 40 mg SQ DAILY 40 Days Qty: 20 1RF Continued levothyroxine [Synthroid] 25 mcg tablet 25 mcg PO DAILY aspirin [Aspirin Childrens] 81 mg tablet,chewable 1 tab PO DAILY Patient Comments: pt voices she is terrible about remembering to take. No Action sertraline 50 MG tablet 50 mg PO DAILY Mini 6.75 mg iron- 200 mcg tablet 1 tab PO DAILY Qty: 30 12RF Referrals / Follow Up: Tere Moran DO [Primary Care Provider] - Disposition Disposition (needs filled in before D/C Order can be placed): Home, Self Care
--- NOTE | 2024-02-28 07:01 | PN.OBGYN_ITS ---
Subjective Subjective Patient doing well without complaints. Tolerating PO. Ambulating and voiding without difficulty. pumping. Denies chest pain, shortness of breath, calf pain/swelling, fevers, chills, lightheadedness. Objective Data Objective Data Vital Signs: Vital Signs Temp Pulse Resp BP Pulse Ox O2 Del Method 97.2 F L 85 16 128/82 H 98 Room Air 02/28/24 03:21 02/28/24 03:21 02/28/24 03:21 02/28/24 03:21 02/27/24 19:56 02/28/24 03:21 Oxygen Delivery Method Room Air Weight: 150 lb 9.211 oz Body Mass Index (BMI) 26.6 Intake & Output: Intake and Output for Last 24 Hours 02/26/24 02/27/24 02/28/24 23:59 23:59 23:59 Intake Total 2622.14 / 2622.14 16.5 / 16.5 Output Total 1400 / 1400 401 / 401 Balance 1222.14 / 1222.14 -384.5 / -384.5 Lab / Micro Data 02/28/24 05:20 Labs: Laboratory Results - last 24 hr 02/25/24 15:10: Crossmatch See Detail 02/27/24 13:00: WBC 17.3 H, RBC 2.80 L, Hgb 8.2 L, Hct 25.6 L, MCV 91.4, MCH 29.3, MCHC 32.0, RDW Std Deviation 48.2 H, RDW Coeff of Emily 14.3, Plt Count 310, MPV 8.5, Immature Gran % (Auto) 0.900, Neut % (Auto) 80.6 H, Lymph % (Auto) 8.7 L, [place] % (Auto) 9.7, Eos % (Auto) 0.0, Baso % (Auto) 0.1, Absolute Neuts (auto) 13.9 H, Absolute Lymphs (auto) 1.51, Nucleated RBC % 0.1, Differential Comment COMMENT, Diff Path Review December02/28/24 05:20: WBC 14.8 H, RBC 2.90 L, Hgb 8.5 L, Hct 26.7 L, MCV 92.1, MCH 29.3, MCHC 31.8 L, RDW Std Deviation 49.7 H, RDW Coeff of Emily 14.6, Plt Count 322, MPV 8.6, Immature Gran % (Auto) 1.200 H, Neut % (Auto) 70.8 H, Lymph % (Auto) 18.4 L, Stewart % (Auto) 9.4, Eos % (Auto) 0.1, Baso % (Auto) 0.1, Absolute Neuts (auto) 10.5 H, Absolute Lymphs (auto) 2.72, Nucleated RBC % 0.1 ROS Constitutional Constitutional: Reports systems reviewed and no addt'l complaints, except as documented Cardiovascular Cardiovascular: Reports systems reviewed and no addt'l complaints, except as documented Respiratory/Chest Respiratory/Chest: Reports systems reviewed and no addt'l complaints, except as documented Gastrointestinal Gastrointestinal: Reports systems reviewed and no addt'l complaints, except as documented Physical Exam Const alert, oriented x3 and no apparent distress HEENT Head and Scalp: atraumatic Resp normal respiratory effort GI soft to palpation and non-tender Inspection: incision intact, healing well and drainage (none) Bimanual Exam - Vag & Uterus: uterus non-tender Uterus Palpation: uterus fundus firm (below Umbilicus) Assessment & Plan (1) Acute on chronic anemia: COMMENT: s/p 1 unit transfused (2) delivery delivered: COMMENT: LTCS girl Mary 34 dec fm recurrent decels PLAN: Plan s/p LTCS PPD # 2 1. routine post care 2. breast feeding- pumping 3. rh positive 4. rubella immune
[2024-02-28 07:45] VITALS: BP 126/85; PULSE 65; RESP 16; TEMP 36.6; O2SAT 98
[2024-02-29 09:28] LABS: Pathologist Review Reviewed
[2024-02-29 20:17] LABS: Pathology Specimen OB SEE PATHOLOGY REPORT
[2024-02-29 20:19] LABS: Pathology Specimen OB SEE PATHOLOGY REPORT
--- NOTE | 2024-03-13 14:25 | CASEMGMT ---
Social Work Assessment Labor and Delivery Unit Patient Address:[address] [place] [address] Phone number: [phone] Date of Referral: 02/27/24 Time of Referral:? 106 Referred By: Dr. Miranda Date of Intervention: ?02/27/24 Time of Intervention:? 1429 Reason for Referral:? hx anxiety and depression Sw completed chart review and acknowledges social work consult due to maternal history of anxiety and depression. Sw presented to bedside and introduced self to mother of baby (ELENA Vaz). Sw explained sw role and completed psychosocial assessment. History obtained from: medical records, MOB Household composition: Currently residing in the family home is MOB, father of baby (PAUL- Al) and their two older children: Baltazar- 7 y/o and Evan- 4 y/o. baby will be added to residence when ready for discharge. DEVON denies any issues or concerns with current housing. Patient's parent/guardian status:? ?DEVON states that she and FOKrista have been together for 12 years after meeting and attending school with each other. MOB denies any issues or concerns with domestic violence or intimate partner violence. Medical History: ?DEVON is 3, para 2- now 2 following labor and delivery of . DEVON received routine care during with [place]. DEVON presented to hospital in labor at 34 weeks and delivered baby via emergency . Baby required transfer to [facility] NICU due to respiratory distress. Baby girl, named Mary Smith, was born weighing 4lb 12oz with apgars of 8 and 9 at one and five minutes of life, respectfully. Baby will be followed by Dr. Sylvester for pediatrics. Educational Status:? Both parents graduated from high school, DEVON obtained her associates degree. No concerns with reading, learning or comprehending what is read. Financial Status: Both parents are gainfully employed outside of the home. 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 Infant Supplies:?? Parents have obtained all necessary baby supplies, including: car seat, safe sleep space, clothes, diapers and wipes. Childcare/Caregiver(s):? DEVON states that she will be the primary caregiver to baby, and FOB when he is not working. 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 Transportation:?? no barriers. Programs/Agencies Involved: ???Parents are not connected to any community resources that provide any financial assistance at this time. Children Services/Legal Issues:???No history of children services involvement, no issues or concerns warranting referral to be made at this time. Behavioral Health Issues: ??Mental Health History:??MOB states that PAUL does not have any mental health diagnoses. MOB states that she has been diagnosed with anxiety and is prescribed zoloft by her primary care doctor. MOB states that her anxiety is managed, she has healthy and appropriate coping skills to utilize if she feels as though she is struggling. MOB states that she has never experienced any baby blues or mood disorders following her other two deliveries. ? Substance Use History:?MOB denies substance use prior to and during . ? Family History: MOB denies family history of addiction and significant mental health diagnoses. ? Drug Screens: no drug screens observed in chart review. ?? Family/Social Stressors:? MOB states that currently she is only stressed and concerned about baby needing to be transferred to [facility] N[facility]. MOB states that she is navigating whether to stay admitted one more day or get discharged so that she can go be with baby. MOB states that to ensure that she is in the best health she will probably stay admitted and FOB can be with baby in NICU while her parents continue to provide care to her older two children. MOB seemed content with this decision. Support Systems: MOB states that she has a lot of support from both sides of their families. Depression/Shaken Baby/Safe Sleeping:? Sw educated MOB on signs and symptoms of baby blues and mood and anxiety disorders. MOB expressed understanding. MOB stated that she is receptive to getting connected to other mental health services if that would help her at any time. Sw educated MOB on shaken baby prevention and ABCs of safe sleep, MOB expressed understanding. ASSESSMENT:? MOB admitted following labor and delivery. [place] baby required transfer to [facility] NICU due to prematurity and respiratory distress. MOB navigating whether to stay at labor and delivery or to be discharged in order to go be with baby. Baby being transferred has caused some understandable distress to MOB. MOB with mental health history of anxiety, but reports that this is managed with help of zoloft and support from family and friends. Parents have obtained all necessary baby supplies. MOB was talkative and interactive appropriately while completing psychosocial assessment. PLAN:? MOB to be discharged when medically ready. ?No other services requested or indicated. Tierney Jay, BOBBIN WINDER TENDER, COMPOSITION WEATHERBOARD INSTALLER
== END 2024-02-28 09:40 | disposition home or self-care (01) | DRG 787 ==
PROVIDERS: Admitting Provider Obstetrics & Gynecology; PCP Internal Medicine; Referring Provider Obstetrics & Gynecology; Visit Provider Obstetrics & Gynecology
DX: O76 Abnormality in fetal heart rate and rhythm complicating labor and delivery (principal); D62 Acute posthemorrhagic anemia; E03.9 Hypothyroidism, unspecified; I83.812 Varicose veins of left lower extremity with pain; F41.9 Anxiety disorder, unspecified; O36.8130 Decreased fetal movements, third trimester, not applicable or unspecified; O12.14 Gestational proteinuria, complicating childbirth; O34.03 Maternal care for unspecified congenital malformation of uterus, third trimester; Z3A.34 34 weeks gestation of pregnancy; O99.344 Other mental disorders complicating childbirth; O22.03 Varicose veins of lower extremity in pregnancy, third trimester; Q51.4 Unicornate uterus; O99.284 Endocrine, nutritional and metabolic diseases complicating childbirth; Z37.0 Single live birth; O87.4 Varicose veins of lower extremity in the puerperium; Z86.718 Personal history of other venous thrombosis and embolism; Z87.59 Personal history of other complications of pregnancy, childbirth and the puerperium
CPT/HCPCS: 36415; 59025; 59050; 76816; 76819; 85025; 85027; 86850; 86900; 86901; 86920; 88305; 88307; 96372; 99221; J7120; P9016; A4216; G0378; J0702; J2405